=== PATIENT | male | born 1950 | race Caucasian/White ===

== ENCOUNTER 2018-06-26 16:12 | Inpatient (IN) | payer MEDICARE, MEDICAID ==
[~2018-06-26] VITALS: Ht 167.6 cm; Wt 52.8 kg
[2018-06-26 16:39] VITALS: BP 152/94
[2018-06-26] MEDS ORDERED: METHYL SALICYLATE/MENTHOL TOPICAL OINTMENT 29GM TUBE. TP PRN (16:45)
[2018-06-26] MEDS ORDERED: MAGNESIUM HYDROXIDE 2,400 MG/30 ML ORAL.SUSP. PO PRN (16:45)
[2018-06-26] MEDS ORDERED: ACETAMINOPHEN 325 MG TABLET PO PRN (16:45)
[2018-06-26] MEDS ORDERED: MAG HYDROX/AL HYDROX/SIMETH 30 ML ORAL.SUSP PO PRN (16:45)
[2018-06-26 17:20] LABS: BASO % 0 % (0-3); EOS # 0.1 x10^3/uL (0.0-0.7); EOS % 1 % (0-3); HEMATOCRIT 38.7 % (39.0-53.0); HEMOGLOBIN 13.1 g/dL (13.0-17.5); LYMPH # 0.4 x10^3/uL (1.0-4.8); LYMPH % 8 % (24-48); MEAN CORPUSCULAR HEMOGLOBIN 31 pg (25-35); MEAN CORPUSCULAR HGB CONC 34 g/dL (31-37); MEAN CORPUSCULAR VOLUME 93 fL (79-100); MONO # 0.5 x10^3/uL (0.0-1.1); MONO % 10 % (0-9); NEUT # 4.2 x10^3uL (1.8-7.7); NEUT % 81 % (31-73); PLATELET COUNT 170 x10^3/uL (140-400); RED BLOOD COUNT 4.18 x10^6/uL (4.30-5.70); RED CELL DISTRIBUTION WIDTH 15.6 % (11.5-14.5); WHITE BLOOD COUNT 5.2 x10^3/uL (4.0-11.0)
[2018-06-26 17:24] LABS: BILIRUBIN,URINE NEG (NEG); CLARITY,URINE CLEAR; COLOR,URINE YELLOW; GLUCOSE,URINE NEG (NEG)
[2018-06-26 17:25] LABS: BACTERIA,URINE FEW /HPF (0-FEW); NITRITE,URINE NEG (NEG); RBC,URINE OCC /HPF (0-2); SQUAMOUS EPITHELIAL CELL,UR FEW /LPF; UROBILINOGEN,URINE 0.2 mg/dL (0.2 mg/dL)
[2018-06-26 17:47] LABS: ALBUMIN 3.4 g/dL (3.4-5.0); ALBUMIN/GLOBULIN RATIO 0.9 (1.0-1.7); CALCIUM 8.8 mg/dL (8.5-10.1); CREATININE 0.8 mg/dL (0.7-1.3); GFR 95.6; MAGNESIUM 1.9 mg/dL (1.8-2.4); POTASSIUM 3.7 mmol/L (3.5-5.1); TOTAL BILIRUBIN 0.5 mg/dL (0.2-1.0); TOTAL PROTEIN 7.2 g/dL (6.4-8.2)
[2018-06-26] MEDS ORDERED: ONDA4VIA56 IVP (18:05)
[2018-06-26] MEDS ORDERED: PROC5TAB34 IVP (18:05)
[2018-06-26] MEDS ORDERED: PHEN-443 PO (18:05)
[2018-06-26] MEDS ORDERED: PHENAZOPYRIDINE 100 MG TABLET. PO PRN (18:15)
--- NOTE | 2018-06-26 22:44 | PDOC ---
Exam Note: Gadiel Note: Please also refer to the separate dictated note~for this date of service dictated separately. Discussed the patient with Nursing staff reviewed the chart.~Reviewed interim history and current functioning. Reviewed vital signs,~ Labs/ Radiology~and current medications noted below. Continue current treatment with the changes noted in the dictated addendum note Assessment: Vital Signs: Vital Signs Date Time Temp Pulse Resp B/P (MAP) Pulse Ox O2 Delivery O2 Flow Rate FiO2 06/26/18 16:39 97.3 91 18 152/94 (113) 95 Labs: Laboratory Tests Test 06/26/18 16:45 06/26/18 16:55 Urine Collection Type Void Urine Color Yellow Urine Clarity Clear Urine pH 7.5 Urine Specific [place] 1.015 Urine Protein Neg (NEG-TRACE) Urine Glucose (UA) Neg mg/dL (NEG) Urine Ketones (Stick) Neg mg/dL (NEG) Urine Blood Neg (NEG) Urine Nitrite Neg (NEG) Urine Bilirubin Neg (NEG) Urine Urobilinogen Dipstick 0.2 mg/dL (0.2 mg/dL) Urine Leukocyte Esterase Trace (NEG) Urine RBC Occ /HPF (0-2) Urine WBC 1-4 /HPF (0-4) Urine Squamous Epithelial Cells Few /LPF Urine Bacteria Few /HPF (0-FEW) White Blood Count 5.2 x10^3/uL (4.0-11.0) Red Blood Count 4.18 x10^6/uL (4.30-5.70) L Hemoglobin 13.1 g/dL (13.0-17.5) Hematocrit 38.7 % (39.0-53.0) L Mean Corpuscular Volume 93 fL (79-100) Mean Corpuscular Hemoglobin 31 pg (25-35) Mean Corpuscular Hemoglobin Concent 34 g/dL (31-37) Red Cell Distribution Width 15.6 % (11.5-14.5) H Platelet Count 170 x10^3/uL (140-400) Neutrophils (%) (Auto) 81 % (31-73) H Lymphocytes (%) (Auto) 8 % (24-48) L Monocytes (%) (Auto) 10 % (0-9) H Eosinophils (%) (Auto) 1 % (0-3) Basophils (%) (Auto) 0 % (0-3) Neutrophils # (Auto) 4.2 x10^3uL (1.8-7.7) Lymphocytes # (Auto) 0.4 x10^3/uL (1.0-4.8) L Monocytes # (Auto) 0.5 x10^3/uL (0.0-1.1) Eosinophils # (Auto) 0.1 x10^3/uL (0.0-0.7) Basophils # (Auto) 0.0 x10^3/uL (0.0-0.2) Sodium Level 138 mmol/L (136-145) Potassium Level 3.7 mmol/L (3.5-5.1) Chloride Level 101 mmol/L (98-107) Carbon Dioxide Level 32 mmol/L (21-32) Anion Gap 5 (6-14) L Blood Urea Nitrogen 17 mg/dL (8-26) Creatinine 0.8 mg/dL (0.7-1.3) Estimated GFR (Cockcroft-Gault) 95.6 BUN/Creatinine Ratio 21 (6-20) H Glucose Level 98 mg/dL (70-99) Calcium Level 8.8 mg/dL (8.5-10.1) Magnesium Level 1.9 mg/dL (1.8-2.4) Total Bilirubin 0.5 mg/dL (0.2-1.0) Aspartate Amino Transferase (AST) 25 U/L (15-37) Alanine Aminotransferase (ALT) 18 U/L (16-63) Alkaline Phosphatase 88 U/L (46-116) Total Protein 7.2 g/dL (6.4-8.2) Albumin 3.4 g/dL (3.4-5.0) Albumin/Globulin Ratio 0.9 (1.0-1.7) L Current Medications: Meds: Current Medications Acetaminophen (Tylenol) 650 mg PRN Q6HRS PRN PO PAIN / TEMP; Start 06/26/18 at 16:45 Multi-Ingredient Ointment (Analgesic [place]) 1 tarik PRN QID PRN TP MUSCLE PAIN; Start 06/26/18 at 16:45 Al Hydroxide/Mg Hydroxide (Mylanta Plus Xs) 15 ml PRN AFTMEALHC PRN PO DYSPEPSIA; Start 06/26/18 at 16:45 Magnesium Hydroxide (Milk Of Magnesia) 2,400 mg PRN QHS PRN PO CONSTIPATION; Start 06/26/18 at 16:45 Phenazopyridine HCl (Pyridium) 100 mg PRN Q8HRS PRN PO URINARY DISCOMFORT; Start 06/26/18 at 18:15 Olanzapine (ZyPREXA ZYDIS) 2.5 mg PRN Q2HR PRN PO psychosis/agitation ; Start 06/26/18 at 18:30 Active Scripts Active Reported Compazine (Prochlorperazine Maleate) 5 Mg Tablet 5 Mg IVP PRN Q4HRS PRN Phenazopyridine Hcl 100 Mg Tablet 100 Mg PO PRN Q8HRS PRN Ondansetron Hcl 4 Mg/2 Ml Vial (Ondansetron Hcl/Pf) 4 Mg/2 Ml Vial 4 Mg IVP PRN Q6HRS PRN I have reviewed the current psychotropics carefully including drug interactions. Risk benefit ratio favors no change other than as noted in my dictated progress note. Diagnosis: Problems: (1) Unspecified psychosis (2) Anxiety disorder (3) Dementia, vascular, with delusions (4) Dementia, vascular, with depression (5) Dementia in Alzheimer's disease with delusions (6) Dementia in Alzheimer's disease with depression (7) Impulse control disorder (8) Psychosis, atypical CORA PRADHAN MD Jun 26, 2018 22:44
[2018-06-27 01:12] LABS: THYROXINE 6.5 ug/dL (4.5-12.0)
[2018-06-27 05:16] VITALS: BP 136/80
[2018-06-27 13:24] LABS: THYROID STIM HORMONE (TSH) 7.473 uIU/mL (0.358-3.740)
--- NOTE | 2018-06-27 13:30 | EKG ---
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
--- NOTE | 2018-06-27 14:01 | HP ---
ADMIT DATE: 06/26/2018 PSYCHIATRIC ADMISSION HISTORY AND EVALUATION This late entry 06/26/2018 covers elements not covered in my initial note of 06/26/2018. I have discussed the patient with the nursing staff, reviewed the chart, and discussed the patient with Lili Davies several times over the last couple of days after the patient was referred to us by his primary care physician at [facility] in [place] on account of worsening confusion and agitation. I had also talked to the nurse practitioner taking care of the patient at [facility] earlier in the day prior to the patient's admission on 06/26/2018. Reviewed his entire history. IDENTIFYING DATA: The patient is a 68-year-old male referred to us from [facility] where he was hospitalized from home since he was walking out of the home, difficult to redirect him and bring him back into the home by his . Behaviors were deemed dangerous. He was noted to have auditory and visual hallucinations about demons at bad spirits. He had gone outside in the snow and had to get him back in. He was resistive to this. This concerns about safety. The entire medical workup at [facility] was negative including for any drug or substance use. There is no recent alcohol usage though he has a past history of alcohol abuse. CT head and MRI head showed no acute changes. He is referred for inpatient psychiatric stabilization. CHIEF COMPLAINT: "I came here today. I am okay." HISTORY OF PRESENT ILLNESS: The patient has a history of dementia, Alzheimer's vascular type. He has been residing at home with his . He has not been driving for some time, but getting increasingly confused, anxious, restless, paranoid, suspicious. He has been getting more confused in the evening, wandering out of the home into the snow, difficult to redirect back by his . Behaviors deemed dangerous, unmanageable resulting in this referral for inpatient psychiatric stabilization. No clear symptoms of bipolar disorder. PAST PSYCHIATRIC HISTORY: Positive for alcohol abuse, but no usage for about 9 months. History of progressive short-term memory deficits. PAST MEDICAL HISTORY: Positive for history of rectal cancer, anemia, chronic diarrhea, past history of alcohol abuse, sober for 9 months. Chinese is a second language Wolof being the first, but he does communicate in Chinese as he did with me on 06/26/2018. DRUG ALLERGIES: Negative. ACCU-CHEKS: None. DIET: [place] diet. Take medications whole. Ambulates up ad remi. UA 06/26/2018, sample was obtained. CODE STATUS: Full code. CURRENT PSYCHOTROPICS: Zyprexa was initiated 2.5 mg q.2 hours p.r.n. psychosis, agitation; 7.5 mg every 24 hours. This was started by me following the patient's admission. FAMILY HISTORY: Noncontributory. SOCIAL HISTORY: The patient states he used to work at the [employer] in [place]. Alcohol use history as noted above, none for 9 months. No drug abuse history. No physical, sexual or elder abuse history is noted. He is not known to be a perpetrator. REACTION TO HOSPITALIZATION: The patient is accepting of this and he has been admitted with the following apparently both by his own signature and his as a co-signatory. ASSETS: Supporting . MENTAL STATUS EXAM: The patient was seen individually evening in his room on 06/26/2018. He knew he arrived earlier in the day on 06/26/2018, was oriented to place, situation, knew the year was 2018. He is only able to do one step on serial sevens, able to spell world forward. No error, backward, 4 errors. Attention span is short. Language function intact. He remains somewhat paranoid, but otherwise quite verbal forthcoming. Insight is reasonable. Language function intact. Mood is somewhat dysphoric, anxious. No active suicidal or homicidal ideation. LABORATORY DATA: Reviewed. IMPRESSION: Psychotic disorder, unspecified; major neurocognitive disorder, Alzheimer, vascular with delusion, depression; anxiety disorder, unspecified; impulse control disorder, unspecified. B12 deficiency. Rest as above. PLAN: Admit to geropsychiatry unit at [facility]. I will see the patient daily individually from a psychiatric standpoint, medical followup with Dr. Ewing. We will start Zyprexa p.r.n., consider starting Exelon patch and an SSRI agent, but we will observe him baseline and that the side effect. Estimated length of stay 10-12 days. DISPOSITION: Plans possibly back home with outpatient treatment locally in [place], [place]. CORA PRADHAN MD DR: SINDI/kaden JOB#: [id number] / [id number]
[2018-06-27 15:54] VITALS: BP 108/63
--- NOTE | 2018-06-27 21:54 | CONS ---
DATE OF CONSULTATION: 06/27/2018 REASON FOR CONSULTATION: Medical management. HISTORY OF PRESENT ILLNESS: The patient is a 68-year-old male patient who was referred from [facility] where he was hospitalized from home since he was walking out of the home and it was difficult to redirect and bring him back into the house from the snow. His behavior was deemed dangerous. He was noted auditory and visual hallucinations about demons and bad spirits. He had run outside in the snow and the had to get him back in. He was resistive to her care. He was felt to be medically stable and his CT scan and MRI of the head showed no acute changes and therefore, he was referred to this unit for inpatient psychiatric stabilization. PAST MEDICAL HISTORY: Medically, the patient has a known history of rectal cancer, status post surgery. He has anemia, chronic diarrhea, past history of alcohol abuse, has not drunk any for the last 9 months. PAST SURGICAL HISTORY: Significant for Port-A-Cath placement. ALLERGIES: He has no known drug allergies. MEDICATIONS: He is currently on the following medications: He is on Compazine 5 mg every 4 hours, ondansetron 4 mg every 6 hours, and phenazopyridine 100 mg every 8 hours as needed. REVIEW OF SYSTEMS: As per history of present illness. PHYSICAL EXAMINATION GENERAL: When I examined him, he was pale, cachectic, but no jaundice, cyanosis, lymphadenopathy, or thyromegaly. No jugular venous distension. No lower limb edema. VITAL SIGNS: His heart rate was 91, blood pressure 152/94, temperature was 97.3, respiratory rate was 18, and oxygen saturation was 95%. HEENT: Showed normocephalic, atraumatic. NECK: Supple. HEART: Showed normal first and second heart sounds. No gallop, rub, or murmur. CHEST: Shows central trachea, equal bilateral good chest expansion and air entry, vesicular breath sounds, no crepitation or rhonchi. ABDOMEN: Scaphoid, soft, nontender. NEUROLOGIC: He is awake, alert, and responding appropriately. All cranial nerves were intact. EXTREMITIES: Moves extremities without difficulty. He has marked muscle wasting and weakness. LABORATORY DATA: Showed a serum sodium of 138, potassium 3.7, chloride 101, bicarbonate 32, anion gap of 5, BUN 17, creatinine 0.8, estimated GFR was 96 mL per minute. His glucose was 98, calcium was 8.8, magnesium was 1.8. Serum iron was 50, TIBC was 255, and saturation was 20. His serum total iron, total bilirubin, AST, ALT, alkaline phosphatase were normal. Total protein was 7.2, albumin 3.7, triglycerides were 61, total cholesterol 148, LDL was 79, VLDL was 12, HDL was 57, and total cholesterol to HDL cholesterol ratio was 2. 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 His white cell count was 5200, hemoglobin 13, hematocrit 39, MCV 93, and platelet count 270,000. His urinalysis was essentially unremarkable. The urine was yellow and clear with a pH of 7.5, specific gravity of 1.015. The urine was negative for protein, glucose, ketones, blood, nitrite, and leukocyte esterase. There were occasional rbc's, 1-4 wbc's, and very few bacteria. IMPRESSION: So, in summary, this is a 68-year-old male patient who was admitted to [facility] in [place] where he apparently was walking out of the home, going outside in the snow, and the to get had to get him back multiple times. It was difficult to redirect him and bring him back in to the house. He was also noted to have auditory and visual hallucinations that were about demons and bad spirits. He is here for inpatient psychiatric stabilization. Medically, he seems to be stable. All his vital signs and his lab works are all within the acceptable range. He definitely has no evidence of urinary tract infection. He is on minimal medication. I will definitely follow all his labs that are still pending sat the time of this dictation and make any necessary recommendations. Thank you, Dr. Ng, for allowing me to participate in the care of this patient. ODALYS RENEE MD DR: ALBARO/kaden JOB#: [id number] / [id number]
--- NOTE | 2018-06-27 23:14 | PDOC ---
Exam Note: Gadiel Note: Please also refer to the separate dictated note~for this date of service dictated separately.~Patient seen individually. Discussed the patient with Nursing staff reviewed the chart.~Reviewed interim history and current functioning. Reviewed vital signs,~Labs/ Radiology~and current medications noted below. Continue current treatment with the changes noted in the dictated addendum note Assessment: Vital Signs: Vital Signs Date Time Temp Pulse Resp B/P (MAP) Pulse Ox O2 Delivery O2 Flow Rate FiO2 06/27/18 15:54 97.9 96 18 108/63 (78) 97 Room Air I&O Intake and Output 06/27/18 07:01 Intake Total 240 ml Balance 240 ml Intake Oral 240 ml # Bowel Movements 1 Current Medications: Meds: Current Medications Acetaminophen (Tylenol) 650 mg PRN Q6HRS PRN PO PAIN / TEMP; Start 06/26/18 at 16:45 Multi-Ingredient Ointment (Analgesic [place]) 1 tarik PRN QID PRN TP MUSCLE PAIN; Start 06/26/18 at 16:45 Al Hydroxide/Mg Hydroxide (Mylanta Plus Xs) 15 ml PRN AFTMEALHC PRN PO DYSPEPSIA; Start 06/26/18 at 16:45 Magnesium Hydroxide (Milk Of Magnesia) 2,400 mg PRN QHS PRN PO CONSTIPATION; Start 06/26/18 at 16:45 Phenazopyridine HCl (Pyridium) 100 mg PRN Q8HRS PRN PO URINARY DISCOMFORT; Start 06/26/18 at 18:15 Olanzapine (ZyPREXA ZYDIS) 2.5 mg PRN Q2HR PRN PO psychosis/agitation ; Start 06/26/18 at 18:30 Rivastigmine (Exelon) 1 patch DAILY TD ; Start 06/28/18 at 09:00; Stop 07/05/18 at 11:00 Rivastigmine (Exelon) 1 patch DAILY TD ; Start 07/06/18 at 09:00 Sertraline HCl (Zoloft) 25 mg DAILY PO ; Start 06/28/18 at 09:00 Active Scripts Active Reported Compazine (Prochlorperazine Maleate) 5 Mg Tablet 5 Mg IVP PRN Q4HRS PRN Phenazopyridine Hcl 100 Mg Tablet 100 Mg PO PRN Q8HRS PRN Ondansetron Hcl 4 Mg/2 Ml Vial (Ondansetron Hcl/Pf) 4 Mg/2 Ml Vial 4 Mg IVP PRN Q6HRS PRN I have reviewed the current psychotropics carefully including drug interactions. Risk benefit ratio favors no change other than as noted in my dictated progress note. Diagnosis: Problems: (1) Unspecified psychosis (2) Anxiety disorder (3) Dementia, vascular, with delusions (4) Dementia, vascular, with depression (5) Dementia in Alzheimer's disease with delusions (6) Dementia in Alzheimer's disease with depression (7) Impulse control disorder (8) Psychosis, atypical CORA PRADHAN MD Jun 27, 2018 23:14
[2018-06-28] MEDS ORDERED: traZODone 50 MG TABLET. PO PRN (04:30)
[2018-06-28 05:49] VITALS: BP 143/85
[2018-06-28] MEDS: SERTRALINE 25 MG TABLET. PO SCH (09:37)
[2018-06-28] MEDS: RIVASTIGMINE 4.6MG PATCH. TD SCH (09:37)
[2018-06-28 16:17] VITALS: BP 114/72
[2018-06-28] MEDS: traZODone 50 MG TABLET. PO SCH (19:48)
--- NOTE | 2018-06-28 20:23 | PN ---
DATE: 06/27/2018 PSYCHIATRIC PROGRESS NOTE This late entry 06/27/2018 covers elements not covered in my initial note. SUBJECTIVE: I met with the patient in the evening and staffed at a treatment team meeting with the entire team in the morning. Reviewed history at length of progressive memory deficits. Past history of heavy alcohol abuse, none for 9 months. The patient slept 5-1/2 hours previous evening, calm, cooperative, used to work at [employer]. Reviewed his past alcohol abuse. He admits to having DUIs and alcohol withdrawal symptoms and involvement with the authorities. Staff had tried to call me around 10:30 p.m. and then early the morning of 06/28/2018. I spoke to them at 4:00 a.m. The patient is having difficulty sleeping and we will add trazodone p.r.n. REVIEW OF SYSTEMS: No CV, , pulmonary, eye, ENT system symptoms on review. MENTAL STATUS: Oriented to himself and situation. Speech has some latency, coherent, has some abstraction fair, computation impaired, language function intact. Short term memory is impaired. Mood and affect showing some improvement. LABORATORY DATA: Reviewed. IMPRESSION: Major neurocognitive disorder, Alzheimer, vascular with delusion, depression. Rest unchanged. Past history of alcohol abuse. PLAN: Start Exelon patch 4.6 mg a day, increasing to 9.5 mg a day and 7 days and Zoloft 25 mg a day. Continue rest unchanged for now. MAN Delilah PRADHAN MD DR: SINDI/kaden JOB#: [id number] / [id number]
--- NOTE | 2018-06-28 23:57 | PDOC ---
Exam Note: Gadiel Note: Please also refer to the separate dictated note~for this date of service dictated separately.~Patient seen individually. Discussed the patient with Nursing staff reviewed the chart.~Reviewed interim history and current functioning. Reviewed vital signs,~Labs/ Radiology~and current medications noted below. Continue current treatment with the changes noted in the dictated addendum note Assessment: Vital Signs: Vital Signs Date Time Temp Pulse Resp B/P (MAP) Pulse Ox O2 Delivery O2 Flow Rate FiO2 06/28/18 16:17 97.7 74 20 114/72 (86) 96 Room Air I&O Intake and Output 06/28/18 07:01 Intake Total 1320 ml Balance 1320 ml Intake Oral 1320 ml # Bowel Movements 1 Current Medications: Meds: Current Medications Acetaminophen (Tylenol) 650 mg PRN Q6HRS PRN PO PAIN / TEMP; Start 06/26/18 at 16:45 Multi-Ingredient Ointment (Analgesic [place]) 1 tarik PRN QID PRN TP MUSCLE PAIN; Start 06/26/18 at 16:45 Al Hydroxide/Mg Hydroxide (Mylanta Plus Xs) 15 ml PRN AFTMEALHC PRN PO DYSPEPSIA; Start 06/26/18 at 16:45 Magnesium Hydroxide (Milk Of Magnesia) 2,400 mg PRN QHS PRN PO CONSTIPATION; Start 06/26/18 at 16:45 Phenazopyridine HCl (Pyridium) 100 mg PRN Q8HRS PRN PO URINARY DISCOMFORT; Start 06/26/18 at 18:15 Olanzapine (ZyPREXA ZYDIS) 2.5 mg PRN Q2HR PRN PO psychosis/agitation Last administered on 06/27/18at 23:36; Start 06/26/18 at 18:30 Rivastigmine (Exelon) 1 patch DAILY TD Last administered on 06/28/18at 09:37; Start 06/28/18 at 09:00; Stop 07/05/18 at 11:00 Rivastigmine (Exelon) 1 patch DAILY TD ; Start 07/06/18 at 09:00 Sertraline HCl (Zoloft) 25 mg DAILY PO Last administered on 06/28/18at 09:37; Start 06/28/18 at 09:00 Trazodone HCl (Desyrel) 50 mg QHS PO Last administered on 06/28/18at 19:48; Start 06/28/18 at 21:00 Trazodone HCl (Desyrel) 50 mg PRN QHS PRN PO INSOMNIA; Start 06/28/18 at 04:30 Active Scripts Active Reported Compazine (Prochlorperazine Maleate) 5 Mg Tablet 5 Mg IVP PRN Q4HRS PRN Phenazopyridine Hcl 100 Mg Tablet 100 Mg PO PRN Q8HRS PRN Ondansetron Hcl 4 Mg/2 Ml Vial (Ondansetron Hcl/Pf) 4 Mg/2 Ml Vial 4 Mg IVP PRN Q6HRS PRN I have reviewed the current psychotropics carefully including drug interactions. Risk benefit ratio favors no change other than as noted in my dictated progress note. Diagnosis: Problems: (1) Unspecified psychosis (2) Anxiety disorder (3) Dementia, vascular, with delusions (4) Dementia, vascular, with depression (5) Dementia in Alzheimer's disease with delusions (6) Dementia in Alzheimer's disease with depression (7) Impulse control disorder (8) Psychosis, atypical CORA PRADHAN MD Jun 28, 2018 23:57
[2018-06-29 05:29] VITALS: BP 124/73
[2018-06-29] MEDS: RIVASTIGMINE 4.6MG PATCH. TD SCH (08:28)
[2018-06-29] MEDS: SERTRALINE 25 MG TABLET. PO SCH (08:28)
[2018-06-29 15:34] VITALS: BP 108/64
[2018-06-29] MEDS: CHOLECALCIFEROL (VITAMIN D3) 50,000 UNIT CAPSULE PO SCH (16:33)
[2018-06-29] MEDS: traZODone 50 MG TABLET. PO SCH (19:56)
[2018-06-29] MEDS: MIRTAZAPINE 7.5 MG TABLET. PO SCH (19:57)
--- NOTE | 2018-06-30 00:01 | PDOC ---
Exam Note: Gadiel Note: Please also refer to the separate dictated note~for this date of service dictated separately.~Patient seen individually. Discussed the patient with Nursing staff reviewed the chart.~Reviewed interim history and current functioning. Reviewed vital signs,~Labs/ Radiology~and current medications noted below. Continue current treatment with the changes noted in the dictated addendum note Assessment: Vital Signs: Vital Signs Date Time Temp Pulse Resp B/P (MAP) Pulse Ox O2 Delivery O2 Flow Rate FiO2 06/29/18 15:34 98.2 74 20 108/64 (79) 98 06/28/18 16:17 Room Air I&O Intake and Output 06/29/18 07:01 Intake Total 1060 ml Balance 1060 ml Intake Oral 1060 ml Current Medications: Meds: Current Medications Acetaminophen (Tylenol) 650 mg PRN Q6HRS PRN PO PAIN / TEMP; Start 06/26/18 at 16:45 Multi-Ingredient Ointment (Analgesic [place]) 1 tarik PRN QID PRN TP MUSCLE PAIN; Start 06/26/18 at 16:45 Al Hydroxide/Mg Hydroxide (Mylanta Plus Xs) 15 ml PRN AFTMEALHC PRN PO DYSPEPSIA; Start 06/26/18 at 16:45 Magnesium Hydroxide (Milk Of Magnesia) 2,400 mg PRN QHS PRN PO CONSTIPATION; Start 06/26/18 at 16:45 Phenazopyridine HCl (Pyridium) 100 mg PRN Q8HRS PRN PO URINARY DISCOMFORT; Start 06/26/18 at 18:15 Olanzapine (ZyPREXA ZYDIS) 2.5 mg PRN Q2HR PRN PO psychosis/agitation Last administered on 06/27/18at 23:36; Start 06/26/18 at 18:30 Rivastigmine (Exelon) 1 patch DAILY TD Last administered on 06/29/18at 08:28; Start 06/28/18 at 09:00; Stop 07/05/18 at 11:00 Rivastigmine (Exelon) 1 patch DAILY TD ; Start 07/06/18 at 09:00 Sertraline HCl (Zoloft) 25 mg DAILY PO Last administered on 06/29/18at 08:28; Start 06/28/18 at 09:00 Trazodone HCl (Desyrel) 50 mg QHS PO Last administered on 06/29/18at 19:56; Start 06/28/18 at 21:00 Trazodone HCl (Desyrel) 50 mg PRN QHS PRN PO INSOMNIA; Start 06/28/18 at 04:30 Vitamin D (Vitamin D3) 50,000 unit WEEKLY PO Last administered on 06/29/18at 16: 33; Start 06/29/18 at 16:15 Cyanocobalamin (Vitamin B-12) 1,000 mcg DAILY IM ; Start 06/30/18 at 09:00 Mirtazapine (Remeron) 7.5 mg QHS PO Last administered on 06/29/18at 19:57; Start 06/29/18 at 21:00 Active Scripts Active Reported Compazine (Prochlorperazine Maleate) 5 Mg Tablet 5 Mg IVP PRN Q4HRS PRN Phenazopyridine Hcl 100 Mg Tablet 100 Mg PO PRN Q8HRS PRN Ondansetron Hcl 4 Mg/2 Ml Vial (Ondansetron Hcl/Pf) 4 Mg/2 Ml Vial 4 Mg IVP PRN Q6HRS PRN I have reviewed the current psychotropics carefully including drug interactions. Risk benefit ratio favors no change other than as noted in my dictated progress note. Diagnosis: Problems: (1) Unspecified psychosis (2) Anxiety disorder (3) Dementia, vascular, with delusions (4) Dementia, vascular, with depression (5) Dementia in Alzheimer's disease with delusions (6) Dementia in Alzheimer's disease with depression (7) Impulse control disorder (8) Psychosis, atypical CORA PRADHAN MD Jun 30, 2018 00:01
[2018-06-30 05:53] VITALS: BP 144/84
[2018-06-30] MEDS: SERTRALINE 25 MG TABLET. PO SCH (07:31)
[2018-06-30] MEDS: RIVASTIGMINE 4.6MG PATCH. TD SCH (07:31)
[2018-06-30] MEDS: CYANOCOBALAMIN (VITAMIN B-12) 1,000 MCG/ML VIAL IM SCH (07:37)
[2018-06-30 15:15] LABS: HEMOGLOBIN 12.9 g/dL (13.0-17.5); RED CELL DISTRIBUTION WIDTH 15.5 % (11.5-14.5)
[2018-06-30 15:31] LABS: ALBUMIN 3.1 g/dL (3.4-5.0); ALBUMIN/GLOBULIN RATIO 0.8 (1.0-1.7); C REACTIVE PROTEIN 3.3 mg/L (0-3.3); CALCIUM 8.6 mg/dL (8.5-10.1); CREATININE 0.7 mg/dL (0.7-1.3); GFR 111.5; POTASSIUM 4.2 mmol/L (3.5-5.1); TOTAL BILIRUBIN 0.3 mg/dL (0.2-1.0); URIC ACID 3.1 mg/dL (3.5-7.2)
[2018-06-30 15:41] VITALS: BP 126/75
[2018-06-30] MEDS: MIRTAZAPINE 7.5 MG TABLET. PO SCH (20:19)
[2018-06-30] MEDS: traZODone 50 MG TABLET. PO SCH (20:20)
--- NOTE | 2018-06-30 22:34 | PDOC ---
Exam Note: Gadiel Note: Please also refer to the separate dictated note~for this date of service dictated separately. Discussed the patient with Nursing staff reviewed the chart.~Reviewed interim history and current functioning. Reviewed vital signs,~ Labs/ Radiology~and current medications noted below. Continue current treatment with the changes noted in the dictated addendum note Assessment: Vital Signs: Vital Signs Date Time Temp Pulse Resp B/P (MAP) Pulse Ox O2 Delivery O2 Flow Rate FiO2 06/30/18 15:41 97.8 76 18 126/75 (92) 96 06/28/18 16:17 Room Air I&O Intake and Output 06/30/18 07:01 Intake Total 1200 ml Balance 1200 ml Intake Oral 1200 ml # Voids 1 Labs: Laboratory Tests Test 06/30/18 14:50 White Blood Count 6.0 x10^3/uL (4.0-11.0) Red Blood Count 4.00 x10^6/uL (4.30-5.70) L Hemoglobin 12.9 g/dL (13.0-17.5) L Hematocrit 38.0 % (39.0-53.0) L Mean Corpuscular Volume 95 fL (79-100) Mean Corpuscular Hemoglobin 32 pg (25-35) Mean Corpuscular Hemoglobin Concent 34 g/dL (31-37) Red Cell Distribution Width 15.5 % (11.5-14.5) H Platelet Count 211 x10^3/uL (140-400) Erythrocyte Sedimentation Rate 21 (0-15) H Sodium Level 142 mmol/L (136-145) Potassium Level 4.2 mmol/L (3.5-5.1) Chloride Level 105 mmol/L (98-107) Carbon Dioxide Level 30 mmol/L (21-32) Anion Gap 7 (6-14) Blood Urea Nitrogen 20 mg/dL (8-26) Creatinine 0.7 mg/dL (0.7-1.3) Estimated GFR (Cockcroft-Gault) 111.5 BUN/Creatinine Ratio 29 (6-20) H Glucose Level 117 mg/dL (70-99) H Uric Acid 3.1 mg/dL (3.5-7.2) L Calcium Level 8.6 mg/dL (8.5-10.1) Total Bilirubin 0.3 mg/dL (0.2-1.0) Aspartate Amino Transferase (AST) 17 U/L (15-37) Alanine Aminotransferase (ALT) 17 U/L (16-63) Alkaline Phosphatase 100 U/L (46-116) C-Reactive Protein 3.3 mg/L (0-3.3) Total Protein 7.0 g/dL (6.4-8.2) Albumin 3.1 g/dL (3.4-5.0) L Albumin/Globulin Ratio 0.8 (1.0-1.7) L Current Medications: Meds: Current Medications Acetaminophen (Tylenol) 650 mg PRN Q6HRS PRN PO PAIN / TEMP Last administered on 06/30/18at 05:35; Start 06/26/18 at 16:45 Multi-Ingredient Ointment (Analgesic [place]) 1 tarik PRN QID PRN TP MUSCLE PAIN; Start 06/26/18 at 16:45 Al Hydroxide/Mg Hydroxide (Mylanta Plus Xs) 15 ml PRN AFTMEALHC PRN PO DYSPEPSIA; Start 06/26/18 at 16:45 Magnesium Hydroxide (Milk Of Magnesia) 2,400 mg PRN QHS PRN PO CONSTIPATION; Start 06/26/18 at 16:45 Phenazopyridine HCl (Pyridium) 100 mg PRN Q8HRS PRN PO URINARY DISCOMFORT; Start 06/26/18 at 18:15 Olanzapine (ZyPREXA ZYDIS) 2.5 mg PRN Q2HR PRN PO psychosis/agitation Last administered on 06/27/18at 23:36; Start 06/26/18 at 18:30 Rivastigmine (Exelon) 1 patch DAILY TD Last administered on 06/30/18at 07:31; Start 06/28/18 at 09:00; Stop 07/05/18 at 11:00 Rivastigmine (Exelon) 1 patch DAILY TD ; Start 07/06/18 at 09:00 Sertraline HCl (Zoloft) 25 mg DAILY PO Last administered on 06/30/18at 07:31; Start 06/28/18 at 09:00 Trazodone HCl (Desyrel) 50 mg QHS PO Last administered on 06/30/18at 20:20; Start 06/28/18 at 21:00 Trazodone HCl (Desyrel) 50 mg PRN QHS PRN PO INSOMNIA; Start 06/28/18 at 04:30 Vitamin D (Vitamin D3) 50,000 unit WEEKLY PO Last administered on 06/29/18at 16: 33; Start 06/29/18 at 16:15 Cyanocobalamin (Vitamin B-12) 1,000 mcg DAILY IM Last administered on at 07:37; Start 06/30/18 at 09:00 Mirtazapine (Remeron) 7.5 mg QHS PO Last administered on 06/30/18at 20:19; Start 06/29/18 at 21:00 Active Scripts Active Reported Compazine (Prochlorperazine Maleate) 5 Mg Tablet 5 Mg IVP PRN Q4HRS PRN Phenazopyridine Hcl 100 Mg Tablet 100 Mg PO PRN Q8HRS PRN Ondansetron Hcl 4 Mg/2 Ml Vial (Ondansetron Hcl/Pf) 4 Mg/2 Ml Vial 4 Mg IVP PRN Q6HRS PRN I have reviewed the current psychotropics carefully including drug interactions. Risk benefit ratio favors no change other than as noted in my dictated progress note. Diagnosis: Problems: (1) Unspecified psychosis (2) Anxiety disorder (3) Dementia, vascular, with delusions (4) Dementia, vascular, with depression (5) Dementia in Alzheimer's disease with delusions (6) Dementia in Alzheimer's disease with depression (7) Impulse control disorder (8) Psychosis, atypical CORA PRADHAN MD Jun 30, 2018 22:34
[2018-07-01 05:58] VITALS: BP 133/83
--- NOTE | 2018-07-01 06:58 | PDOC ---
Exam Note: Gadiel Note: PSYCHIATRIC PROGRESS NOTE This late entry 06/28/2018 covers elements, not covered in my initial note. SUBJECTIVE: I met with the patient individually in the evening of 06/28/2018. Nursing staff had called me at 10.30 p.m. previous night, then at 4 a.m. morning of the 06/28/2018. He has not been able to sleep and we have added trazodone to help with this. Reviewed information from nursing staff. Reviewed the chart. He has been withdrawn, spends much time in his room, confused, quite anxious, paranoid previous night. No suicidal or homicidal ideation. REVIEW OF SYSTEMS: No CV, , Eye, ENT, pulmonary system symptoms on review. MENTAL STATUS EXAMINATION: Oriented to herself and situation. Speech has some latency, coherent. Abstraction is fair. Computation impaired. Language function is intact. Short-term memory is impaired. Mood and affect is improved. LABORATORY DATA: Reviewed. IMPRESSION: Major neurocognitive disorder, vascular with delusion, depression. Past history of alcohol abuse. Rest unchanged. PLAN: I have carefully reviewed current psychotropics. There is no change from my initial note. Assessment: Vital Signs: VS - Last 72 Hours, by Label Date Time Temp Pulse Resp B/P (MAP) Pulse Ox O2 Delivery O2 Flow Rate FiO2 07/01/18 05:58 97.6 72 16 133/83 (100) 100 06/30/18 15:41 97.8 76 18 126/75 (92) 96 06/30/18 05:53 97.3 74 20 144/84 (104) 97 06/29/18 15:34 98.2 74 20 108/64 (79) 98 06/29/18 05:29 96.9 80 22 124/73 (90) 96 06/28/18 16:17 97.7 74 20 114/72 (86) 96 Room Air Vital Signs Date Time Temp Pulse Resp B/P (MAP) Pulse Ox O2 Delivery O2 Flow Rate FiO2 07/01/18 05:58 97.6 72 16 133/83 (100) 100 06/28/18 16:17 Room Air I&O Intake and Output 07/01/18 07:01 Intake Total 840 ml Balance 840 ml Intake Oral 840 ml Labs: Laboratory Tests Test 06/30/18 14:50 White Blood Count 6.0 x10^3/uL (4.0-11.0) Red Blood Count 4.00 x10^6/uL (4.30-5.70) L Hemoglobin 12.9 g/dL (13.0-17.5) L Hematocrit 38.0 % (39.0-53.0) L Mean Corpuscular Volume 95 fL (79-100) Mean Corpuscular Hemoglobin 32 pg (25-35) Mean Corpuscular Hemoglobin Concent 34 g/dL (31-37) Red Cell Distribution Width 15.5 % (11.5-14.5) H Platelet Count 211 x10^3/uL (140-400) Erythrocyte Sedimentation Rate 21 (0-15) H Sodium Level 142 mmol/L (136-145) Potassium Level 4.2 mmol/L (3.5-5.1) Chloride Level 105 mmol/L (98-107) Carbon Dioxide Level 30 mmol/L (21-32) Anion Gap 7 (6-14) Blood Urea Nitrogen 20 mg/dL (8-26) Creatinine 0.7 mg/dL (0.7-1.3) Estimated GFR (Cockcroft-Gault) 111.5 BUN/Creatinine Ratio 29 (6-20) H Glucose Level 117 mg/dL (70-99) H Uric Acid 3.1 mg/dL (3.5-7.2) L Calcium Level 8.6 mg/dL (8.5-10.1) Total Bilirubin 0.3 mg/dL (0.2-1.0) Aspartate Amino Transferase (AST) 17 U/L (15-37) Alanine Aminotransferase (ALT) 17 U/L (16-63) Alkaline Phosphatase 100 U/L (46-116) C-Reactive Protein 3.3 mg/L (0-3.3) Total Protein 7.0 g/dL (6.4-8.2) Albumin 3.1 g/dL (3.4-5.0) L Albumin/Globulin Ratio 0.8 (1.0-1.7) L Current Medications: Meds: Current Medications Acetaminophen (Tylenol) 650 mg PRN Q6HRS PRN PO PAIN / TEMP Last administered on 06/30/18at 05:35; Start 06/26/18 at 16:45 Multi-Ingredient Ointment (Analgesic [place]) 1 tarik PRN QID PRN TP MUSCLE PAIN; Start 06/26/18 at 16:45 Al Hydroxide/Mg Hydroxide (Mylanta Plus Xs) 15 ml PRN AFTMEALHC PRN PO DYSPEPSIA; Start 06/26/18 at 16:45 Magnesium Hydroxide (Milk Of Magnesia) 2,400 mg PRN QHS PRN PO CONSTIPATION; Start 06/26/18 at 16:45 Phenazopyridine HCl (Pyridium) 100 mg PRN Q8HRS PRN PO URINARY DISCOMFORT; Start 06/26/18 at 18:15 Olanzapine (ZyPREXA ZYDIS) 2.5 mg PRN Q2HR PRN PO psychosis/agitation Last administered on 06/27/18at 23:36; Start 06/26/18 at 18:30 Rivastigmine (Exelon) 1 patch DAILY TD Last administered on 06/30/18at 07:31; Start 06/28/18 at 09:00; Stop 07/05/18 at 11:00 Rivastigmine (Exelon) 1 patch DAILY TD ; Start 07/06/18 at 09:00 Sertraline HCl (Zoloft) 25 mg DAILY PO Last administered on 06/30/18at 07:31; Start 06/28/18 at 09:00 Trazodone HCl (Desyrel) 50 mg QHS PO Last administered on 06/30/18at 20:20; Start 06/28/18 at 21:00 Trazodone HCl (Desyrel) 50 mg PRN QHS PRN PO INSOMNIA; Start 06/28/18 at 04:30 Vitamin D (Vitamin D3) 50,000 unit WEEKLY PO Last administered on 06/29/18at 16: 33; Start 06/29/18 at 16:15 Cyanocobalamin (Vitamin B-12) 1,000 mcg DAILY IM Last administered on at 07:37; Start 06/30/18 at 09:00 Mirtazapine (Remeron) 7.5 mg QHS PO Last administered on 06/30/18at 20:19; Start 06/29/18 at 21:00 Active Scripts Active Reported Compazine (Prochlorperazine Maleate) 5 Mg Tablet 5 Mg IVP PRN Q4HRS PRN Phenazopyridine Hcl 100 Mg Tablet 100 Mg PO PRN Q8HRS PRN Ondansetron Hcl 4 Mg/2 Ml Vial (Ondansetron Hcl/Pf) 4 Mg/2 Ml Vial 4 Mg IVP PRN Q6HRS PRN I have reviewed the current psychotropics carefully including drug interactions. Risk benefit ratio favors no change other than as noted in my dictated progress note. Diagnosis: Problems: (1) Unspecified psychosis (2) Anxiety disorder (3) Dementia, vascular, with delusions (4) Dementia, vascular, with depression (5) Dementia in Alzheimer's disease with delusions (6) Dementia in Alzheimer's disease with depression (7) Impulse control disorder (8) Psychosis, atypical CORA PRADHAN MD Jul 01, 2018 06:58
--- NOTE | 2018-07-01 07:15 | PDOC ---
Exam Note: Gadiel Note: PSYCHIATRIC PROGRESS NOTE This late entry 06/29/2018 covers elements, not covered in my initial note. SUBJECTIVE: I met with the patient individually in the evening of 06/29/2018. Reviewed information from nursing staff. Reviewed the chart. He slept just 3 hours previous night. He did well the previous night and during the day on . No suicidal or homicidal ideation. REVIEW OF SYSTEMS: No CV, , Eye, ENT, pulmonary system symptoms on review. MENTAL STATUS EXAMINATION: Oriented to herself and situation. Speech has some latency, low in rate and rhythm. Often response is monosyllabic. Abstraction is fair. Computation impaired. Language function is intact. Short-term memory is impaired. Mood and affect is improved. LABORATORY DATA: Reviewed. IMPRESSION: Major neurocognitive disorder, vascular with delusion, depression. Past history of alcohol abuse. Rest unchanged. PLAN: I have carefully reviewed current psychotropics. Start Remeron 7.5 mg p.o. h.s. Rest unchanged from my initial note. Assessment: Vital Signs: VS - Last 72 Hours, by Label Date Time Temp Pulse Resp B/P (MAP) Pulse Ox O2 Delivery O2 Flow Rate FiO2 07/01/18 05:58 97.6 72 16 133/83 (100) 100 06/30/18 15:41 97.8 76 18 126/75 (92) 96 06/30/18 05:53 97.3 74 20 144/84 (104) 97 06/29/18 15:34 98.2 74 20 108/64 (79) 98 06/29/18 05:29 96.9 80 22 124/73 (90) 96 06/28/18 16:17 97.7 74 20 114/72 (86) 96 Room Air Vital Signs Date Time Temp Pulse Resp B/P (MAP) Pulse Ox O2 Delivery O2 Flow Rate FiO2 07/01/18 05:58 97.6 72 16 133/83 (100) 100 06/28/18 16:17 Room Air I&O Intake and Output 07/01/18 07:01 Intake Total 840 ml Balance 840 ml Intake Oral 840 ml Labs: Laboratory Tests Test 06/30/18 14:50 White Blood Count 6.0 x10^3/uL (4.0-11.0) Red Blood Count 4.00 x10^6/uL (4.30-5.70) L Hemoglobin 12.9 g/dL (13.0-17.5) L Hematocrit 38.0 % (39.0-53.0) L Mean Corpuscular Volume 95 fL (79-100) Mean Corpuscular Hemoglobin 32 pg (25-35) Mean Corpuscular Hemoglobin Concent 34 g/dL (31-37) Red Cell Distribution Width 15.5 % (11.5-14.5) H Platelet Count 211 x10^3/uL (140-400) Erythrocyte Sedimentation Rate 21 (0-15) H Sodium Level 142 mmol/L (136-145) Potassium Level 4.2 mmol/L (3.5-5.1) Chloride Level 105 mmol/L (98-107) Carbon Dioxide Level 30 mmol/L (21-32) Anion Gap 7 (6-14) Blood Urea Nitrogen 20 mg/dL (8-26) Creatinine 0.7 mg/dL (0.7-1.3) Estimated GFR (Cockcroft-Gault) 111.5 BUN/Creatinine Ratio 29 (6-20) H Glucose Level 117 mg/dL (70-99) H Uric Acid 3.1 mg/dL (3.5-7.2) L Calcium Level 8.6 mg/dL (8.5-10.1) Total Bilirubin 0.3 mg/dL (0.2-1.0) Aspartate Amino Transferase (AST) 17 U/L (15-37) Alanine Aminotransferase (ALT) 17 U/L (16-63) Alkaline Phosphatase 100 U/L (46-116) C-Reactive Protein 3.3 mg/L (0-3.3) Total Protein 7.0 g/dL (6.4-8.2) Albumin 3.1 g/dL (3.4-5.0) L Albumin/Globulin Ratio 0.8 (1.0-1.7) L Current Medications: Meds: Current Medications Acetaminophen (Tylenol) 650 mg PRN Q6HRS PRN PO PAIN / TEMP Last administered on 06/30/18at 05:35; Start 06/26/18 at 16:45 Multi-Ingredient Ointment (Analgesic [place]) 1 tarik PRN QID PRN TP MUSCLE PAIN; Start 06/26/18 at 16:45 Al Hydroxide/Mg Hydroxide (Mylanta Plus Xs) 15 ml PRN AFTMEALHC PRN PO DYSPEPSIA; Start 06/26/18 at 16:45 Magnesium Hydroxide (Milk Of Magnesia) 2,400 mg PRN QHS PRN PO CONSTIPATION; Start 06/26/18 at 16:45 Phenazopyridine HCl (Pyridium) 100 mg PRN Q8HRS PRN PO URINARY DISCOMFORT; Start 06/26/18 at 18:15 Olanzapine (ZyPREXA ZYDIS) 2.5 mg PRN Q2HR PRN PO psychosis/agitation Last administered on 06/27/18at 23:36; Start 06/26/18 at 18:30 Rivastigmine (Exelon) 1 patch DAILY TD Last administered on 06/30/18at 07:31; Start 06/28/18 at 09:00; Stop 07/05/18 at 11:00 Rivastigmine (Exelon) 1 patch DAILY TD ; Start 07/06/18 at 09:00 Sertraline HCl (Zoloft) 25 mg DAILY PO Last administered on 06/30/18at 07:31; Start 06/28/18 at 09:00 Trazodone HCl (Desyrel) 50 mg QHS PO Last administered on 06/30/18at 20:20; Start 06/28/18 at 21:00 Trazodone HCl (Desyrel) 50 mg PRN QHS PRN PO INSOMNIA; Start 06/28/18 at 04:30 Vitamin D (Vitamin D3) 50,000 unit WEEKLY PO Last administered on 06/29/18at 16: 33; Start 06/29/18 at 16:15 Cyanocobalamin (Vitamin B-12) 1,000 mcg DAILY IM Last administered on at 07:37; Start 06/30/18 at 09:00 Mirtazapine (Remeron) 7.5 mg QHS PO Last administered on 06/30/18at 20:19; Start 06/29/18 at 21:00 Active Scripts Active Reported Compazine (Prochlorperazine Maleate) 5 Mg Tablet 5 Mg IVP PRN Q4HRS PRN Phenazopyridine Hcl 100 Mg Tablet 100 Mg PO PRN Q8HRS PRN Ondansetron Hcl 4 Mg/2 Ml Vial (Ondansetron Hcl/Pf) 4 Mg/2 Ml Vial 4 Mg IVP PRN Q6HRS PRN I have reviewed the current psychotropics carefully including drug interactions. Risk benefit ratio favors no change other than as noted in my dictated progress note. Diagnosis: Problems: (1) Unspecified psychosis (2) Anxiety disorder (3) Dementia, vascular, with delusions (4) Dementia, vascular, with depression (5) Dementia in Alzheimer's disease with delusions (6) Dementia in Alzheimer's disease with depression (7) Impulse control disorder (8) Psychosis, atypical CORA PRADHAN MD Jul 01, 2018 07:15
[2018-07-01] MEDS: CYANOCOBALAMIN (VITAMIN B-12) 1,000 MCG/ML VIAL IM SCH (07:38)
[2018-07-01] MEDS: RIVASTIGMINE 4.6MG PATCH. TD SCH (07:38)
[2018-07-01] MEDS: SERTRALINE 25 MG TABLET. PO SCH (07:38)
[2018-07-01 16:41] VITALS: BP 121/78
[2018-07-01] MEDS: traZODone 50 MG TABLET. PO SCH (19:29)
[2018-07-01] MEDS: MIRTAZAPINE 7.5 MG TABLET. PO SCH (19:29)
--- NOTE | 2018-07-01 22:33 | PDOC ---
Exam Note: Gadiel Note: Please also refer to the separate dictated note~for this date of service dictated separately.~Patient seen individually. Discussed the patient with Nursing staff reviewed the chart.~Reviewed interim history and current functioning. Reviewed vital signs,~Labs/ Radiology~and current medications noted below. Continue current treatment with the changes noted in the dictated addendum note Assessment: Vital Signs: Vital Signs Date Time Temp Pulse Resp B/P (MAP) Pulse Ox O2 Delivery O2 Flow Rate FiO2 07/01/18 16:41 98.5 86 18 121/78 (92) 97 06/28/18 16:17 Room Air I&O Intake and Output 07/01/18 07:01 Intake Total 840 ml Balance 840 ml Intake Oral 840 ml Current Medications: Meds: Current Medications Acetaminophen (Tylenol) 650 mg PRN Q6HRS PRN PO PAIN / TEMP Last administered on 06/30/18at 05:35; Start 06/26/18 at 16:45 Multi-Ingredient Ointment (Analgesic [place]) 1 tarik PRN QID PRN TP MUSCLE PAIN; Start 06/26/18 at 16:45 Al Hydroxide/Mg Hydroxide (Mylanta Plus Xs) 15 ml PRN AFTMEALHC PRN PO DYSPEPSIA; Start 06/26/18 at 16:45 Magnesium Hydroxide (Milk Of Magnesia) 2,400 mg PRN QHS PRN PO CONSTIPATION; Start 06/26/18 at 16:45 Phenazopyridine HCl (Pyridium) 100 mg PRN Q8HRS PRN PO URINARY DISCOMFORT; Start 06/26/18 at 18:15 Olanzapine (ZyPREXA ZYDIS) 2.5 mg PRN Q2HR PRN PO psychosis/agitation Last administered on 06/27/18at 23:36; Start 06/26/18 at 18:30 Rivastigmine (Exelon) 1 patch DAILY TD Last administered on 07/01/18at 07:38; Start 06/28/18 at 09:00; Stop 07/05/18 at 11:00 Rivastigmine (Exelon) 1 patch DAILY TD ; Start 07/06/18 at 09:00 Sertraline HCl (Zoloft) 25 mg DAILY PO Last administered on 07/01/18at 07:38; Start 06/28/18 at 09:00 Trazodone HCl (Desyrel) 50 mg QHS PO Last administered on 07/01/18at 19:29; Start 06/28/18 at 21:00 Trazodone HCl (Desyrel) 50 mg PRN QHS PRN PO INSOMNIA; Start 06/28/18 at 04:30 Vitamin D (Vitamin D3) 50,000 unit WEEKLY PO Last administered on 06/29/18at 16: 33; Start 06/29/18 at 16:15 Cyanocobalamin (Vitamin B-12) 1,000 mcg DAILY IM Last administered on at 07:38; Start 06/30/18 at 09:00 Mirtazapine (Remeron) 7.5 mg QHS PO Last administered on 07/01/18at 19:29; Start 06/29/18 at 21:00 Active Scripts Active Reported Compazine (Prochlorperazine Maleate) 5 Mg Tablet 5 Mg IVP PRN Q4HRS PRN Phenazopyridine Hcl 100 Mg Tablet 100 Mg PO PRN Q8HRS PRN Ondansetron Hcl 4 Mg/2 Ml Vial (Ondansetron Hcl/Pf) 4 Mg/2 Ml Vial 4 Mg IVP PRN Q6HRS PRN I have reviewed the current psychotropics carefully including drug interactions. Risk benefit ratio favors no change other than as noted in my dictated progress note. Diagnosis: Problems: (1) Unspecified psychosis (2) Anxiety disorder (3) Dementia, vascular, with delusions (4) Dementia, vascular, with depression (5) Dementia in Alzheimer's disease with delusions (6) Dementia in Alzheimer's disease with depression (7) Impulse control disorder (8) Psychosis, atypical CORA PRADHAN MD Jul 01, 2018 22:33
[2018-07-02 05:43] VITALS: BP 150/83
[2018-07-02] MEDS: SERTRALINE 25 MG TABLET. PO SCH (09:00)
[2018-07-02] MEDS: CYANOCOBALAMIN (VITAMIN B-12) 1,000 MCG/ML VIAL IM SCH (09:01)
[2018-07-02] MEDS: RIVASTIGMINE 4.6MG PATCH. TD SCH (09:01)
[2018-07-02 15:47] VITALS: BP 101/66
[2018-07-02] MEDS: MIRTAZAPINE 7.5 MG TABLET. PO SCH (20:49)
[2018-07-02] MEDS: traZODone 50 MG TABLET. PO SCH (20:49)
--- NOTE | 2018-07-02 22:04 | PN ---
DATE: 06/30/2018 PSYCHIATRIC PROGRESS NOTE This late entry 06/30/2018 covers elements not covered in my initial note. SUBJECTIVE: The patient slept 6-1/2 hours previous night, remains confused, complains of left elbow swelling, seen by Dr. Ewing, seems to have bursitis. REVIEW OF SYSTEMS: No CV, , eye system symptoms on review. MENTAL STATUS EXAM: He is otherwise, pleasant, cooperative, withdrawn, somewhat irritable at times. No suicidal or homicidal ideation. IMPRESSION: Unchanged from initial note. PLAN: No change from initial note. MAN Delilah PRADHAN MD DR: SINDI/kaden JOB#: [id number] / [id number]
--- NOTE | 2018-07-02 22:11 | PN ---
DATE: 07/01/2018 PSYCHIATRIC PROGRESS NOTE This late entry 07/01/2018 covers elements not covered in my initial note. SUBJECTIVE: I met with the patient in his room. The patient slept 4-1/4 hours previous night, cooperative with medications, woke up in the middle of the night, took a shower at 1:30 a.m., refused his medications on 07/01/2018 except the B12. He was somewhat demanding regarding hot and cold water, amongst other things. REVIEW OF SYSTEMS: No CV, , pulmonary, eye system symptoms on review. Does seem a little more irritable. MENTAL STATUS EXAM: Oriented to himself and situation. Speech has some latency, coherent, often responses monosyllabic. Abstraction fair, computation impaired, language function intact. Mood and affect somewhat withdrawn. LABORATORY DATA: Reviewed. IMPRESSION: Major neurocognitive disorder, Alzheimer, vascular with delusion, depression. Rest unchanged, major depressive disorder; anxiety disorder, unspecified. PLAN: Continue psychotropics from initial note. We will increase the Zoloft gradually, maintain Exelon patch, trazodone, Remeron, along with Zyprexa p.r.n. MAN Delilah PRADHAN MD DR: SINDI/kaden JOB#: [id number] / [id number]
--- NOTE | 2018-07-02 22:23 | PDOC ---
Exam Note: Gadiel Note: Please also refer to the separate dictated note~for this date of service dictated separately.~Patient seen individually. Discussed the patient with Nursing staff reviewed the chart.~Reviewed interim history and current functioning. Reviewed vital signs,~Labs/ Radiology~and current medications noted below. Continue current treatment with the changes noted in the dictated addendum note Assessment: Vital Signs: Vital Signs Date Time Temp Pulse Resp B/P (MAP) Pulse Ox O2 Delivery O2 Flow Rate FiO2 07/02/18 15:47 97.4 69 18 101/66 (78) 95 07/02/18 05:43 Room Air I&O Intake and Output 07/02/18 07:01 Intake Total 1320 ml Balance 1320 ml Intake Oral 1320 ml Current Medications: Meds: Current Medications Acetaminophen (Tylenol) 650 mg PRN Q6HRS PRN PO PAIN / TEMP Last administered on 06/30/18at 05:35; Start 06/26/18 at 16:45 Multi-Ingredient Ointment (Analgesic [place]) 1 tarik PRN QID PRN TP MUSCLE PAIN; Start 06/26/18 at 16:45 Al Hydroxide/Mg Hydroxide (Mylanta Plus Xs) 15 ml PRN AFTMEALHC PRN PO DYSPEPSIA; Start 06/26/18 at 16:45 Magnesium Hydroxide (Milk Of Magnesia) 2,400 mg PRN QHS PRN PO CONSTIPATION; Start 06/26/18 at 16:45 Phenazopyridine HCl (Pyridium) 100 mg PRN Q8HRS PRN PO URINARY DISCOMFORT; Start 06/26/18 at 18:15 Olanzapine (ZyPREXA ZYDIS) 2.5 mg PRN Q2HR PRN PO psychosis/agitation Last administered on 06/27/18at 23:36; Start 06/26/18 at 18:30 Rivastigmine (Exelon) 1 patch DAILY TD Last administered on 07/02/18at 09:01; Start 06/28/18 at 09:00; Stop 07/05/18 at 11:00 Rivastigmine (Exelon) 1 patch DAILY TD ; Start 07/06/18 at 09:00; Stop 07/06/18 at 09:00; Status DC Sertraline HCl (Zoloft) 25 mg DAILY PO Last administered on 07/02/18at 09:00; Start 06/28/18 at 09:00; Stop 07/02/18 at 16:42; Status DC Trazodone HCl (Desyrel) 50 mg QHS PO Last administered on 07/02/18at 20:49; Start 06/28/18 at 21:00 Trazodone HCl (Desyrel) 50 mg PRN QHS PRN PO INSOMNIA; Start 06/28/18 at 04:30 Vitamin D (Vitamin D3) 50,000 unit WEEKLY PO Last administered on 06/29/18at 16: 33; Start 06/29/18 at 16:15 Cyanocobalamin (Vitamin B-12) 1,000 mcg DAILY IM Last administered on at 09:01; Start 06/30/18 at 09:00 Mirtazapine (Remeron) 7.5 mg QHS PO Last administered on 07/02/18at 20:49; Start 06/29/18 at 21:00 Sertraline HCl (Zoloft) 50 mg DAILY PO ; Start 07/03/18 at 09:00 Rivastigmine (Exelon) 1 patch DAILY TD ; Start 07/03/18 at 09:00 Active Scripts Active Reported Compazine (Prochlorperazine Maleate) 5 Mg Tablet 5 Mg IVP PRN Q4HRS PRN Phenazopyridine Hcl 100 Mg Tablet 100 Mg PO PRN Q8HRS PRN Ondansetron Hcl 4 Mg/2 Ml Vial (Ondansetron Hcl/Pf) 4 Mg/2 Ml Vial 4 Mg IVP PRN Q6HRS PRN I have reviewed the current psychotropics carefully including drug interactions. Risk benefit ratio favors no change other than as noted in my dictated progress note. Diagnosis: Problems: (1) Unspecified psychosis (2) Anxiety disorder (3) Dementia, vascular, with delusions (4) Dementia, vascular, with depression (5) Dementia in Alzheimer's disease with delusions (6) Dementia in Alzheimer's disease with depression (7) Impulse control disorder (8) Psychosis, atypical CORA PRADHAN MD Jul 02, 2018 22:23
[2018-07-03 06:21] VITALS: BP 100/54
[2018-07-03] MEDS: RIVASTIGMINE 4.6MG PATCH. TD SCH (09:00)
[2018-07-03] MEDS: CYANOCOBALAMIN (VITAMIN B-12) 1,000 MCG/ML VIAL IM SCH (09:47)
[2018-07-03] MEDS: SERTRALINE 50 MG TABLET. PO SCH (09:47)
[2018-07-03] MEDS: RIVASTIGMINE 9.5MG PATCH. TD SCH (09:48)
[2018-07-03 17:00] VITALS: BP 122/75
[2018-07-03] MEDS: traZODone 50 MG TABLET. PO SCH (19:34)
[2018-07-03] MEDS: MIRTAZAPINE 15 MG TABLET PO SCH (19:35)
--- NOTE | 2018-07-03 22:37 | PDOC ---
Exam Note: Gadiel Note: Please also refer to the separate dictated note~for this date of service dictated separately.~Patient seen individually. Discussed the patient with Nursing staff reviewed the chart.~Reviewed interim history and current functioning. Reviewed vital signs,~Labs/ Radiology~and current medications noted below. Continue current treatment with the changes noted in the dictated addendum note Assessment: Vital Signs: Vital Signs Date Time Temp Pulse Resp B/P (MAP) Pulse Ox O2 Delivery O2 Flow Rate FiO2 07/03/18 17:00 98.7 68 18 122/75 (91) 97 07/02/18 05:43 Room Air I&O Intake and Output 07/03/18 07:01 Intake Total 840 ml Balance 840 ml Intake Oral 840 ml Current Medications: Meds: Current Medications Acetaminophen (Tylenol) 650 mg PRN Q6HRS PRN PO PAIN / TEMP Last administered on 06/30/18at 05:35; Start 06/26/18 at 16:45 Multi-Ingredient Ointment (Analgesic [place]) 1 tarik PRN QID PRN TP MUSCLE PAIN; Start 06/26/18 at 16:45 Al Hydroxide/Mg Hydroxide (Mylanta Plus Xs) 15 ml PRN AFTMEALHC PRN PO DYSPEPSIA; Start 06/26/18 at 16:45 Magnesium Hydroxide (Milk Of Magnesia) 2,400 mg PRN QHS PRN PO CONSTIPATION; Start 06/26/18 at 16:45 Phenazopyridine HCl (Pyridium) 100 mg PRN Q8HRS PRN PO URINARY DISCOMFORT; Start 06/26/18 at 18:15 Olanzapine (ZyPREXA ZYDIS) 2.5 mg PRN Q2HR PRN PO psychosis/agitation Last administered on 06/27/18at 23:36; Start 06/26/18 at 18:30 Rivastigmine (Exelon) 1 patch DAILY TD Last administered on 07/02/18at 09:01; Start 06/28/18 at 09:00; Stop 07/05/18 at 11:00 Rivastigmine (Exelon) 1 patch DAILY TD ; Start 07/06/18 at 09:00; Stop 07/06/18 at 09:00; Status DC Sertraline HCl (Zoloft) 25 mg DAILY PO Last administered on 07/02/18at 09:00; Start 06/28/18 at 09:00; Stop 07/02/18 at 16:42; Status DC Trazodone HCl (Desyrel) 50 mg QHS PO Last administered on 07/03/18at 19:34; Start 06/28/18 at 21:00 Trazodone HCl (Desyrel) 50 mg PRN QHS PRN PO INSOMNIA; Start 06/28/18 at 04:30 Vitamin D (Vitamin D3) 50,000 unit WEEKLY PO Last administered on 06/29/18at 16: 33; Start 06/29/18 at 16:15 Cyanocobalamin (Vitamin B-12) 1,000 mcg DAILY IM Last administered on 09:47; Start 06/30/18 at 09:00 Mirtazapine (Remeron) 7.5 mg QHS PO Last administered on 07/02/18 20:49; Start 06/29/18 at 21:00; Stop 07/03/18 at 16:57; Status DC Sertraline HCl (Zoloft) 50 mg DAILY PO Last administered on 07/03/18 09:47; Start 07/03/18 at 09:00 Rivastigmine (Exelon) 1 patch DAILY TD Last administered on 07/03/18 09:48; Start 07/03/18 at 09:00 Mirtazapine (Remeron) 15 mg QHS PO Last administered on 07/03/18 19:35; Start 07/03/18 at 21:00 Active Scripts Active Reported Compazine (Prochlorperazine Maleate) 5 Mg Tablet 5 Mg IVP PRN Q4HRS PRN Phenazopyridine Hcl 100 Mg Tablet 100 Mg PO PRN Q8HRS PRN Ondansetron Hcl 4 Mg/2 Ml Vial (Ondansetron Hcl/Pf) 4 Mg/2 Ml Vial 4 Mg IVP PRN Q6HRS PRN I have reviewed the current psychotropics carefully including drug interactions. Risk benefit ratio favors no change other than as noted in my dictated progress note. Diagnosis: Problems: (1) Unspecified psychosis (2) Anxiety disorder (3) Dementia, vascular, with delusions (4) Dementia, vascular, with depression (5) Dementia in Alzheimer's disease with delusions (6) Dementia in Alzheimer's disease with depression (7) Impulse control disorder (8) Psychosis, atypical CORA PRADHAN MD Jul 03, 2018 22:37
--- NOTE | 2018-07-04 01:01 | PN ---
DATE: 07/02/2018 PSYCHIATRIC PROGRESS NOTE This late entry of 07/02/2018 covers elements not covered in my initial note of 07/02/2018. SUBJECTIVE: I met with the patient in his room the evening of 07/02/2018. The patient slept 4-1/2 hours previous night. UA is negative. He has been calm, somewhat withdrawn, spends much time in his room and is compliant with his medications. Short term memory deficits are quite evident, still somewhat depressed. REVIEW OF SYSTEMS: No CV, , pulmonary, eye, ENT system symptoms on review. MENTAL STATUS EXAM: Oriented to himself and situation. Speech has some latency, low in volume, coherent, abstraction fair, computation impaired, language function intact, attention span short. Mood and affect still somewhat dysphoric, anxious, withdrawn, but no suicidal or homicidal ideation. LABORATORY DATA: Reviewed. IMPRESSION: Psychotic disorder, unspecified; major neurocognitive disorder consequent to past history of alcohol abuse, possibly vascular, Alzheimer's with delusion, depression, behavioral disturbance; anxiety disorder, unspecified. Rest unchanged. PLAN: From a psychiatric standpoint, increase Zoloft from 25 mg a day to 50 mg a day and Exelon patch from 4.6 mg a day to 9.5 mg a day. Continue Remeron 7.5 at bedtime; trazodone 50 at bedtime, may repeat x 1 for insomnia p.r.n. and Zyprexa p.r.n. MAN Delilah PRADHAN MD DR: SINDI/kaden JOB#: [id number] / [id number]
[2018-07-04 05:36] VITALS: BP 132/79
[2018-07-04] MEDS: SERTRALINE 50 MG TABLET. PO SCH (08:03)
[2018-07-04] MEDS: RIVASTIGMINE 9.5MG PATCH. TD SCH (08:03)
[2018-07-04] MEDS: RIVASTIGMINE 4.6MG PATCH. TD SCH (08:03)
[2018-07-04] MEDS: CYANOCOBALAMIN (VITAMIN B-12) 1,000 MCG/ML VIAL IM SCH (08:03)
[2018-07-04 16:40] VITALS: BP 125/70
[2018-07-04] MEDS: MIRTAZAPINE 15 MG TABLET PO SCH (19:45)
[2018-07-04] MEDS: traZODone 50 MG TABLET. PO SCH (19:45)
--- NOTE | 2018-07-04 22:49 | PDOC ---
Exam Note: Gadiel Note: Please also refer to the separate dictated note~for this date of service dictated separately.~Patient seen individually. Discussed the patient with Nursing staff reviewed the chart.~Reviewed interim history and current functioning. Reviewed vital signs,~Labs/ Radiology~and current medications noted below. Continue current treatment with the changes noted in the dictated addendum note Assessment: Vital Signs: Vital Signs Date Time Temp Pulse Resp B/P (MAP) Pulse Ox O2 Delivery O2 Flow Rate FiO2 07/04/18 16:40 98.1 72 16 125/70 (88) 99 07/02/18 05:43 Room Air I&O Intake and Output 07/04/18 07:01 Intake Total 1180 ml Balance 1180 ml Intake Oral 1180 ml Current Medications: Meds: Current Medications Acetaminophen (Tylenol) 650 mg PRN Q6HRS PRN PO PAIN / TEMP Last administered on 06/30/18at 05:35; Start 06/26/18 at 16:45 Multi-Ingredient Ointment (Analgesic [place]) 1 tarik PRN QID PRN TP MUSCLE PAIN; Start 06/26/18 at 16:45 Al Hydroxide/Mg Hydroxide (Mylanta Plus Xs) 15 ml PRN AFTMEALHC PRN PO DYSPEPSIA; Start 06/26/18 at 16:45 Magnesium Hydroxide (Milk Of Magnesia) 2,400 mg PRN QHS PRN PO CONSTIPATION; Start 06/26/18 at 16:45 Phenazopyridine HCl (Pyridium) 100 mg PRN Q8HRS PRN PO URINARY DISCOMFORT; Start 06/26/18 at 18:15 Olanzapine (ZyPREXA ZYDIS) 2.5 mg PRN Q2HR PRN PO psychosis/agitation Last administered on 06/27/18at 23:36; Start 06/26/18 at 18:30 Rivastigmine (Exelon) 1 patch DAILY TD Last administered on 07/04/18at 08:03; Start 06/28/18 at 09:00; Stop 07/05/18 at 11:00 Rivastigmine (Exelon) 1 patch DAILY TD ; Start 07/06/18 at 09:00; Stop 07/06/18 at 09:00; Status DC Sertraline HCl (Zoloft) 25 mg DAILY PO Last administered on 07/02/18at 09:00; Start 06/28/18 at 09:00; Stop 07/02/18 at 16:42; Status DC Trazodone HCl (Desyrel) 50 mg QHS PO Last administered on 07/04/18 19:45; Start 06/28/18 at 21:00 Trazodone HCl (Desyrel) 50 mg PRN QHS PRN PO INSOMNIA; Start 06/28/18 at 04:30 Vitamin D (Vitamin D3) 50,000 unit WEEKLY PO Last administered on 06/29/18at 16: 33; Start 06/29/18 at 16:15 Cyanocobalamin (Vitamin B-12) 1,000 mcg DAILY IM Last administered on 08:03; Start 06/30/18 at 09:00 Mirtazapine (Remeron) 7.5 mg QHS PO Last administered on 07/02/18 20:49; Start 06/29/18 at 21:00; Stop 07/03/18 at 16:57; Status DC Sertraline HCl (Zoloft) 50 mg DAILY PO Last administered on 07/04/18 08:03; Start 07/03/18 at 09:00 Rivastigmine (Exelon) 1 patch DAILY TD Last administered on 07/04/18 08:03; Start 07/03/18 at 09:00 Mirtazapine (Remeron) 15 mg QHS PO Last administered on 07/04/18 19:45; Start 07/03/18 at 21:00 Active Scripts Active Reported Compazine (Prochlorperazine Maleate) 5 Mg Tablet 5 Mg IVP PRN Q4HRS PRN Phenazopyridine Hcl 100 Mg Tablet 100 Mg PO PRN Q8HRS PRN Ondansetron Hcl 4 Mg/2 Ml Vial (Ondansetron Hcl/Pf) 4 Mg/2 Ml Vial 4 Mg IVP PRN Q6HRS PRN I have reviewed the current psychotropics carefully including drug interactions. Risk benefit ratio favors no change other than as noted in my dictated progress note. Diagnosis: Problems: (1) Unspecified psychosis (2) Anxiety disorder (3) Dementia, vascular, with delusions (4) Dementia, vascular, with depression (5) Dementia in Alzheimer's disease with delusions (6) Dementia in Alzheimer's disease with depression (7) Impulse control disorder (8) Psychosis, atypical CORA PRADHAN MD Jul 04, 2018 22:49
[2018-07-05 06:00] VITALS: BP 127/75
[2018-07-05 07:01] LABS: BASO % 1 % (0-3); EOS # 0.3 x10^3/uL (0.0-0.7); EOS % 5 % (0-3); HEMATOCRIT 38.6 % (39.0-53.0); HEMOGLOBIN 12.6 g/dL (13.0-17.5); LYMPH # 0.6 x10^3/uL (1.0-4.8); LYMPH % 11 % (24-48); MEAN CORPUSCULAR HEMOGLOBIN 31 pg (25-35); MEAN CORPUSCULAR HGB CONC 33 g/dL (31-37); MEAN CORPUSCULAR VOLUME 95 fL (79-100); MONO # 0.6 x10^3/uL (0.0-1.1); MONO % 13 % (0-9); NEUT # 3.5 x10^3uL (1.8-7.7); NEUT % 70 % (31-73); PLATELET COUNT 190 x10^3/uL (140-400); RED BLOOD COUNT 4.07 x10^6/uL (4.30-5.70); RED CELL DISTRIBUTION WIDTH 15.6 % (11.5-14.5)
[2018-07-05 07:20] LABS: ALBUMIN 3.3 g/dL (3.4-5.0); ALBUMIN/GLOBULIN RATIO 0.8 (1.0-1.7); CALCIUM 8.7 mg/dL (8.5-10.1); CREATININE 0.8 mg/dL (0.7-1.3); GFR 95.6; POTASSIUM 3.6 mmol/L (3.5-5.1); TOTAL BILIRUBIN 0.4 mg/dL (0.2-1.0); TOTAL PROTEIN 7.2 g/dL (6.4-8.2)
[2018-07-05] MEDS: CYANOCOBALAMIN (VITAMIN B-12) 1,000 MCG/ML VIAL IM SCH (08:34)
[2018-07-05] MEDS: SERTRALINE 50 MG TABLET. PO SCH (08:34)
[2018-07-05] MEDS: RIVASTIGMINE 9.5MG PATCH. TD SCH (08:35)
[2018-07-05] MEDS: RIVASTIGMINE 4.6MG PATCH. TD SCH (08:35)
--- NOTE | 2018-07-05 16:06 | PN ---
DATE: 07/03/2018 PSYCHIATRIC PROGRESS NOTE This late entry 07/03/2018 covers elements not covered in my initial note. SUBJECTIVE: I met with the patient in his room at length in the evening. The patient is sleeping an average of 4 hours, slept 3 hours previous night, resistive with medications. Previous night, took them later. Zoloft and Exelon patch were increased the day before. REVIEW OF SYSTEMS: No CV, , pulmonary, eye, ENT system symptoms on review. MENTAL STATUS EXAM: Oriented to himself and situation. Speech moderate latency, often responses monosyllabic. Abstraction fair, computation impaired, language function intact, attention span short. Mood and affect withdrawn. No suicidal ideation. LABORATORY DATA: Reviewed. IMPRESSION: Major neurocognitive disorder, Alzheimer, vascular with delusion, depression, behavioral disturbance; anxiety disorder, unspecified; impulse control disorder, unspecified. I reviewed his CT head report done at [facility] showing global cerebral atrophy. Harden-white matter interface is intact. There is no evidence of acute intracranial hemorrhage or infarct. IMPRESSION: Unchanged from initial note. PLAN: Continue current psychotropics, increase bedtime Remeron from 7.5 mg to 15 mg. Rest unchanged from initial note. CORA PRADHAN MD DR: SINDI/kaden JOB#: [id number] / [id number]
[2018-07-05 16:51] VITALS: BP 128/71
--- NOTE | 2018-07-05 21:13 | PN ---
DATE: 07/04/2018 PSYCHIATRIC PROGRESS NOTE This late entry 07/04/2018 covers elements not covered in my initial note. SUBJECTIVE: I met with the patient in the evening and staffed at a treatment team meeting with the entire team in the morning and the patient's daughter, Nolvia, attended the lengthy treatment team meeting. We reviewed the patient's history, diagnosis, progress, placement options. Family is unsure whether he should return home or for placement. We discussed that the family should visit him over the weekend and we will continue to reassess and then confer early next week to make a final decision. Appetite 100%, sleeping about 5 hours withdrawn and I met with him in his room at some length in the evening. REVIEW OF SYSTEMS: No CV, , pulmonary, eye, ENT system symptoms on review. Reliability poor. MENTAL STATUS EXAMINATION: Oriented to himself, situation. Speech has some latency, coherent, often responses monosyllabic. Abstraction fair, computation impaired, language function intact. Mood and affect remain somewhat withdrawn. LABORATORY DATA: Reviewed. IMPRESSION: Major neurocognitive disorder, Alzheimer, vascular with delusion, depression; anxiety disorder, unspecified. CT head report from [facility] shows cortical atrophy which is fairly generalized. PLAN: Continue psychotropics from initial note and diagnosis mentioned in initial note. MAN Delilah PRADHAN MD DR: SINDI/kaden JOB#: [id number] / [id number]
[2018-07-05] MEDS: traZODone 50 MG TABLET. PO SCH (21:17)
[2018-07-05] MEDS: MIRTAZAPINE 15 MG TABLET PO SCH (21:17)
--- NOTE | 2018-07-05 22:39 | PDOC ---
Exam Note: Gadiel Note: Please also refer to the separate dictated note~for this date of service dictated separately.~Patient seen individually. Discussed the patient with Nursing staff reviewed the chart.~Reviewed interim history and current functioning. Reviewed vital signs,~Labs/ Radiology~and current medications noted below. Continue current treatment with the changes noted in the dictated addendum note Assessment: Vital Signs: Vital Signs Date Time Temp Pulse Resp B/P (MAP) Pulse Ox O2 Delivery O2 Flow Rate FiO2 07/05/18 16:51 97.9 70 18 128/71 (90) 99 Room Air I&O Intake and Output 07/05/18 07:01 Intake Total 940 ml Balance 940 ml Intake Oral 940 ml # Voids 1 Labs: Laboratory Tests Test 07/05/18 06:20 White Blood Count 5.0 x10^3/uL (4.0-11.0) Red Blood Count 4.07 x10^6/uL (4.30-5.70) L Hemoglobin 12.6 g/dL (13.0-17.5) L Hematocrit 38.6 % (39.0-53.0) L Mean Corpuscular Volume 95 fL (79-100) Mean Corpuscular Hemoglobin 31 pg (25-35) Mean Corpuscular Hemoglobin Concent 33 g/dL (31-37) Red Cell Distribution Width 15.6 % (11.5-14.5) H Platelet Count 190 x10^3/uL (140-400) Neutrophils (%) (Auto) 70 % (31-73) Lymphocytes (%) (Auto) 11 % (24-48) L Monocytes (%) (Auto) 13 % (0-9) H Eosinophils (%) (Auto) 5 % (0-3) H Basophils (%) (Auto) 1 % (0-3) Neutrophils # (Auto) 3.5 x10^3uL (1.8-7.7) Lymphocytes # (Auto) 0.6 x10^3/uL (1.0-4.8) L Monocytes # (Auto) 0.6 x10^3/uL (0.0-1.1) Eosinophils # (Auto) 0.3 x10^3/uL (0.0-0.7) Basophils # (Auto) 0.0 x10^3/uL (0.0-0.2) Sodium Level 145 mmol/L (136-145) Potassium Level 3.6 mmol/L (3.5-5.1) Chloride Level 106 mmol/L (98-107) Carbon Dioxide Level 32 mmol/L (21-32) Anion Gap 7 (6-14) Blood Urea Nitrogen 22 mg/dL (8-26) Creatinine 0.8 mg/dL (0.7-1.3) Estimated GFR (Cockcroft-Gault) 95.6 BUN/Creatinine Ratio 28 (6-20) H Glucose Level 92 mg/dL (70-99) Calcium Level 8.7 mg/dL (8.5-10.1) Total Bilirubin 0.4 mg/dL (0.2-1.0) Aspartate Amino Transferase (AST) 20 U/L (15-37) Alanine Aminotransferase (ALT) 17 U/L (16-63) Alkaline Phosphatase 89 U/L (46-116) Total Protein 7.2 g/dL (6.4-8.2) Albumin 3.3 g/dL (3.4-5.0) L Albumin/Globulin Ratio 0.8 (1.0-1.7) L Current Medications: Meds: Current Medications Acetaminophen (Tylenol) 650 mg PRN Q6HRS PRN PO PAIN / TEMP Last administered on 06/30/18at 05:35; Start 06/26/18 at 16:45 Multi-Ingredient Ointment (Analgesic [place]) 1 tarik PRN QID PRN TP MUSCLE PAIN; Start 06/26/18 at 16:45 Al Hydroxide/Mg Hydroxide (Mylanta Plus Xs) 15 ml PRN AFTMEALHC PRN PO DYSPEPSIA; Start 06/26/18 at 16:45 Magnesium Hydroxide (Milk Of Magnesia) 2,400 mg PRN QHS PRN PO CONSTIPATION; Start 06/26/18 at 16:45 Phenazopyridine HCl (Pyridium) 100 mg PRN Q8HRS PRN PO URINARY DISCOMFORT; Start 06/26/18 at 18:15 Olanzapine (ZyPREXA ZYDIS) 2.5 mg PRN Q2HR PRN PO psychosis/agitation Last administered on 06/27/18at 23:36; Start 06/26/18 at 18:30 Rivastigmine (Exelon) 1 patch DAILY TD Last administered on 07/05/18 08:35; Start 06/28/18 at 09:00; Stop 07/05/18 at 11:00; Status DC Rivastigmine (Exelon) 1 patch DAILY TD ; Start 07/06/18 at 09:00; Stop 07/06/18 at 09:00; Status DC Sertraline HCl (Zoloft) 25 mg DAILY PO Last administered on 07/02/18at 09:00; Start 06/28/18 at 09:00; Stop 07/02/18 at 16:42; Status DC Trazodone HCl (Desyrel) 50 mg QHS PO Last administered on 07/05/18 21:17; Start 06/28/18 at 21:00 Trazodone HCl (Desyrel) 50 mg PRN QHS PRN PO INSOMNIA; Start 06/28/18 at 04:30 Vitamin D (Vitamin D3) 50,000 unit WEEKLY PO Last administered on 06/29/18at 16: 33; Start 06/29/18 at 16:15 Cyanocobalamin (Vitamin B-12) 1,000 mcg DAILY IM Last administered on 08:34; Start 06/30/18 at 09:00 Mirtazapine (Remeron) 7.5 mg QHS PO Last administered on 07/02/18at 20:49; Start 06/29/18 at 21:00; Stop 07/03/18 at 16:57; Status DC Sertraline HCl (Zoloft) 50 mg DAILY PO Last administered on 07/05/18 08:34; Start 07/03/18 at 09:00; Stop 07/05/18 at 16:43; Status DC Rivastigmine (Exelon) 1 patch DAILY TD Last administered on 07/05/18 08:35; Start 07/03/18 at 09:00 Mirtazapine (Remeron) 15 mg QHS PO Last administered on 07/05/18 21:17; Start 07/03/18 at 21:00 Sertraline HCl (Zoloft) 75 mg DAILY PO ; Start 07/06/18 at 09:00 Active Scripts Active Reported Compazine (Prochlorperazine Maleate) 5 Mg Tablet 5 Mg IVP PRN Q4HRS PRN Phenazopyridine Hcl 100 Mg Tablet 100 Mg PO PRN Q8HRS PRN Ondansetron Hcl 4 Mg/2 Ml Vial (Ondansetron Hcl/Pf) 4 Mg/2 Ml Vial 4 Mg IVP PRN Q6HRS PRN I have reviewed the current psychotropics carefully including drug interactions. Risk benefit ratio favors no change other than as noted in my dictated progress note. Diagnosis: Problems: (1) Unspecified psychosis (2) Anxiety disorder (3) Dementia, vascular, with delusions (4) Dementia, vascular, with depression (5) Dementia in Alzheimer's disease with delusions (6) Dementia in Alzheimer's disease with depression (7) Impulse control disorder (8) Psychosis, atypical CORA PRADHAN MD Jul 05, 2018 22:39
[2018-07-06 06:28] VITALS: BP 125/80
[2018-07-06] MEDS: CYANOCOBALAMIN (VITAMIN B-12) 1,000 MCG/ML VIAL IM SCH (08:47)
[2018-07-06] MEDS: RIVASTIGMINE 9.5MG PATCH. TD SCH (08:47)
[2018-07-06] MEDS: SERTRALINE 25 MG TABLET. PO SCH (08:50)
[2018-07-06] MEDS: CHOLECALCIFEROL (VITAMIN D3) 50,000 UNIT CAPSULE PO SCH (08:51)
[2018-07-06] MEDS ORDERED: RIVASTIGMINE 9.5MG PATCH. TD SCH (09:00)
[2018-07-06 15:51] VITALS: BP 99/59
[2018-07-06] MEDS: traZODone 50 MG TABLET. PO SCH (19:44)
[2018-07-06] MEDS: MIRTAZAPINE 15 MG TABLET PO SCH (19:45)
--- NOTE | 2018-07-06 22:17 | PDOC ---
Exam Note: Gadiel Note: Please also refer to the separate dictated note~for this date of service dictated separately.~Patient seen individually. Discussed the patient with Nursing staff reviewed the chart.~Reviewed interim history and current functioning. Reviewed vital signs,~Labs/ Radiology~and current medications noted below. Continue current treatment with the changes noted in the dictated addendum note Assessment: Vital Signs: Vital Signs Date Time Temp Pulse Resp B/P (MAP) Pulse Ox O2 Delivery O2 Flow Rate FiO2 07/06/18 15:51 97.9 79 18 99/59 (72) 97 07/05/18 16:51 Room Air I&O Intake and Output 07/06/18 07:01 Intake Total 1080 ml Balance 1080 ml Intake Oral 1080 ml Current Medications: Meds: Current Medications Acetaminophen (Tylenol) 650 mg PRN Q6HRS PRN PO PAIN / TEMP Last administered on 06/30/18at 05:35; Start 06/26/18 at 16:45 Multi-Ingredient Ointment (Analgesic [place]) 1 tarik PRN QID PRN TP MUSCLE PAIN; Start 06/26/18 at 16:45 Al Hydroxide/Mg Hydroxide (Mylanta Plus Xs) 15 ml PRN AFTMEALHC PRN PO DYSPEPSIA; Start 06/26/18 at 16:45 Magnesium Hydroxide (Milk Of Magnesia) 2,400 mg PRN QHS PRN PO CONSTIPATION; Start 06/26/18 at 16:45 Phenazopyridine HCl (Pyridium) 100 mg PRN Q8HRS PRN PO URINARY DISCOMFORT; Start 06/26/18 at 18:15 Olanzapine (ZyPREXA ZYDIS) 2.5 mg PRN Q2HR PRN PO psychosis/agitation Last administered on 06/27/18at 23:36; Start 06/26/18 at 18:30 Rivastigmine (Exelon) 1 patch DAILY TD Last administered on 07/05/18at 08:35; Start 06/28/18 at 09:00; Stop 07/05/18 at 11:00; Status DC Rivastigmine (Exelon) 1 patch DAILY TD ; Start 07/06/18 at 09:00; Stop 07/06/18 at 09:00; Status DC Sertraline HCl (Zoloft) 25 mg DAILY PO Last administered on 07/02/18at 09:00; Start 06/28/18 at 09:00; Stop 07/02/18 at 16:42; Status DC Trazodone HCl (Desyrel) 50 mg QHS PO Last administered on 07/06/18at 19:44; Start 06/28/18 at 21:00 Trazodone HCl (Desyrel) 50 mg PRN QHS PRN PO INSOMNIA; Start 06/28/18 at 04:30 Vitamin D (Vitamin D3) 50,000 unit WEEKLY PO Last administered on 07/06/18 08: 51; Start 06/29/18 at 16:15 Cyanocobalamin (Vitamin B-12) 1,000 mcg DAILY IM Last administered on 08:47; Start 06/30/18 at 09:00 Mirtazapine (Remeron) 7.5 mg QHS PO Last administered on 07/02/18 20:49; Start 06/29/18 at 21:00; Stop 07/03/18 at 16:57; Status DC Sertraline HCl (Zoloft) 50 mg DAILY PO Last administered on 07/05/18at 08:34; Start 07/03/18 at 09:00; Stop 07/05/18 at 16:43; Status DC Rivastigmine (Exelon) 1 patch DAILY TD Last administered on 07/06/18 08:47; Start 07/03/18 at 09:00 Mirtazapine (Remeron) 15 mg QHS PO Last administered on 07/06/18 19:45; Start 07/03/18 at 21:00 Sertraline HCl (Zoloft) 75 mg DAILY PO Last administered on 07/06/18 08:50; Start 07/06/18 at 09:00 Active Scripts Active Reported Compazine (Prochlorperazine Maleate) 5 Mg Tablet 5 Mg IVP PRN Q4HRS PRN Phenazopyridine Hcl 100 Mg Tablet 100 Mg PO PRN Q8HRS PRN Ondansetron Hcl 4 Mg/2 Ml Vial (Ondansetron Hcl/Pf) 4 Mg/2 Ml Vial 4 Mg IVP PRN Q6HRS PRN I have reviewed the current psychotropics carefully including drug interactions. Risk benefit ratio favors no change other than as noted in my dictated progress note. Diagnosis: Problems: (1) Unspecified psychosis (2) Anxiety disorder (3) Dementia, vascular, with delusions (4) Dementia, vascular, with depression (5) Dementia in Alzheimer's disease with delusions (6) Dementia in Alzheimer's disease with depression (7) Impulse control disorder (8) Psychosis, atypical CORA PRADHAN MD Jul 06, 2018 22:17
--- NOTE | 2018-07-07 05:16 | PN ---
DATE: 07/05/2018 PSYCHIATRIC PROGRESS NOTE This is a late entry of 07/05/2018 covers elements not covered in my initial note. SUBJECTIVE: I met with the patient in the evening in his room at length. The patient slept 4-1/2 hours previous night, refused his B12 IM injection, somewhat withdrawn, resistive to meds at times. REVIEW OF SYSTEMS: No CV, , pulmonary, eye, ENT system symptoms on review. MENTAL STATUS EXAM: Oriented to himself and situation. Speech has some latency, coherent. Abstraction fair, computation impaired, language function intact, attention span short. Mood and affect remain somewhat withdrawn. No suicidal ideation. LABORATORY DATA: Reviewed. IMPRESSION: Unchanged from initial note. PLAN: Increase Zoloft to 75 mg a day after he has been on 50 mg for 3 days. Rest unchanged from initial note. MAN Delilah PRADHAN MD DR: SINDI/kaden JOB#: [id number] / [id number]
[2018-07-07 05:56] VITALS: BP 120/71
[2018-07-07] MEDS: RIVASTIGMINE 9.5MG PATCH. TD SCH (07:55)
[2018-07-07] MEDS: SERTRALINE 25 MG TABLET. PO SCH (07:56)
[2018-07-07] MEDS: CYANOCOBALAMIN (VITAMIN B-12) 1,000 MCG/ML VIAL IM SCH (07:56)
[2018-07-07 16:13] VITALS: BP 103/60
[2018-07-07] MEDS: MIRTAZAPINE 15 MG TABLET PO SCH (20:14)
[2018-07-07] MEDS: traZODone 50 MG TABLET. PO SCH (20:14)
--- NOTE | 2018-07-07 22:57 | PDOC ---
Exam Note: Gadiel Note: Please also refer to the separate dictated note~for this date of service dictated separately.~Patient seen individually. Discussed the patient with Nursing staff reviewed the chart.~Reviewed interim history and current functioning. Reviewed vital signs,~Labs/ Radiology~and current medications noted below. Continue current treatment with the changes noted in the dictated addendum note Assessment: Vital Signs: Vital Signs Date Time Temp Pulse Resp B/P (MAP) Pulse Ox O2 Delivery O2 Flow Rate FiO2 07/07/18 16:13 98.1 78 18 103/60 (74) 100 07/05/18 16:51 Room Air I&O Intake and Output 07/07/18 07:01 Intake Total 1080 ml Balance 1080 ml Intake Oral 1080 ml # Voids 1 Current Medications: Meds: Current Medications Acetaminophen (Tylenol) 650 mg PRN Q6HRS PRN PO PAIN / TEMP Last administered on 06/30/18at 05:35; Start 06/26/18 at 16:45 Multi-Ingredient Ointment (Analgesic [place]) 1 tarik PRN QID PRN TP MUSCLE PAIN; Start 06/26/18 at 16:45 Al Hydroxide/Mg Hydroxide (Mylanta Plus Xs) 15 ml PRN AFTMEALHC PRN PO DYSPEPSIA; Start 06/26/18 at 16:45 Magnesium Hydroxide (Milk Of Magnesia) 2,400 mg PRN QHS PRN PO CONSTIPATION; Start 06/26/18 at 16:45 Phenazopyridine HCl (Pyridium) 100 mg PRN Q8HRS PRN PO URINARY DISCOMFORT; Start 06/26/18 at 18:15 Olanzapine (ZyPREXA ZYDIS) 2.5 mg PRN Q2HR PRN PO psychosis/agitation Last administered on 06/27/18at 23:36; Start 06/26/18 at 18:30 Rivastigmine (Exelon) 1 patch DAILY TD Last administered on 07/05/18at 08:35; Start 06/28/18 at 09:00; Stop 07/05/18 at 11:00; Status DC Rivastigmine (Exelon) 1 patch DAILY TD ; Start 07/06/18 at 09:00; Stop 07/06/18 at 09:00; Status DC Sertraline HCl (Zoloft) 25 mg DAILY PO Last administered on 07/02/18at 09:00; Start 06/28/18 at 09:00; Stop 07/02/18 at 16:42; Status DC Trazodone HCl (Desyrel) 50 mg QHS PO Last administered on 07/07/18 20:14; Start 06/28/18 at 21:00 Trazodone HCl (Desyrel) 50 mg PRN QHS PRN PO INSOMNIA; Start 06/28/18 at 04:30 Vitamin D (Vitamin D3) 50,000 unit WEEKLY PO Last administered on 07/06/18 08: 51; Start 06/29/18 at 16:15 Cyanocobalamin (Vitamin B-12) 1,000 mcg DAILY IM Last administered on 07:56; Start 06/30/18 at 09:00 Mirtazapine (Remeron) 7.5 mg QHS PO Last administered on 07/02/18 20:49; Start 06/29/18 at 21:00; Stop 07/03/18 at 16:57; Status DC Sertraline HCl (Zoloft) 50 mg DAILY PO Last administered on 07/05/18 08:34; Start 07/03/18 at 09:00; Stop 07/05/18 at 16:43; Status DC Rivastigmine (Exelon) 1 patch DAILY TD Last administered on 07/07/18 07:55; Start 07/03/18 at 09:00 Mirtazapine (Remeron) 15 mg QHS PO Last administered on 07/07/18 20:14; Start 07/03/18 at 21:00 Sertraline HCl (Zoloft) 75 mg DAILY PO Last administered on 07/07/18 07:56; Start 07/06/18 at 09:00 Active Scripts Active Reported Compazine (Prochlorperazine Maleate) 5 Mg Tablet 5 Mg IVP PRN Q4HRS PRN Phenazopyridine Hcl 100 Mg Tablet 100 Mg PO PRN Q8HRS PRN Ondansetron Hcl 4 Mg/2 Ml Vial (Ondansetron Hcl/Pf) 4 Mg/2 Ml Vial 4 Mg IVP PRN Q6HRS PRN I have reviewed the current psychotropics carefully including drug interactions. Risk benefit ratio favors no change other than as noted in my dictated progress note. Diagnosis: Problems: (1) Unspecified psychosis (2) Anxiety disorder (3) Dementia, vascular, with delusions (4) Dementia, vascular, with depression (5) Dementia in Alzheimer's disease with delusions (6) Dementia in Alzheimer's disease with depression (7) Impulse control disorder (8) Psychosis, atypical CORA PRADHAN MD Jul 07, 2018 22:57
[2018-07-08 05:25] VITALS: BP 104/60
[2018-07-08] MEDS: RIVASTIGMINE 9.5MG PATCH. TD SCH (07:58)
[2018-07-08] MEDS: CYANOCOBALAMIN (VITAMIN B-12) 1,000 MCG/ML VIAL IM SCH (07:58)
[2018-07-08] MEDS: SERTRALINE 25 MG TABLET. PO SCH (07:58)
[2018-07-08 15:44] VITALS: BP 131/78
[2018-07-08] MEDS: MIRTAZAPINE 15 MG TABLET PO SCH ×2 (19:35→21:00)
[2018-07-08] MEDS: traZODone 50 MG TABLET. PO SCH ×2 (19:35→21:00)
--- NOTE | 2018-07-08 21:45 | PN ---
DATE: 07/07/2018 This late entry for 07/07/2018 covers elements not covered in my initial note. SUBJECTIVE: I met with the patient at length in his room. He remains somewhat withdrawn, isolative and we addressed this at great length. We discussed how it is important for him to engage with people, communicate, talk, keep up with the news amongst other things and I gave him a fairly lengthy explanation of the reasons for this and how it helps cognition and mood symptoms, amongst other things. He seemed to comprehend this, and at the end of the visit, he spontaneously asked me to take him to the television [id number], so that he could catch up on the news, which was quite positive. His family did visit him on Sunday07/06/2018, and reportedly, the visit went well, and I will discuss with Beatrice, social service staff on 07/08/2018 about the interpretation of the visit and plans for disposition. REVIEW OF SYSTEMS: No CV, , pulmonary, eye, ENT system symptoms on review. MENTAL STATUS EXAM: Oriented to himself and situation. Speech has some latency, often responses monosyllabic. Abstraction fair, computation impaired, language function intact, attention span short. Mood and affect remain somewhat withdrawn, but showing improvement. LABORATORY DATA: Reviewed. 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 Rest unchanged. PLAN: Continue psychotropics from initial note, Exelon patch, Zoloft, trazodone at night, Remeron 15 mg at bedtime. Zoloft was recently increased, may need to increase further in a day or two. MAN Delilah PRADHAN MD DR: SINDI/kaden JOB#: [id number] / [id number]
--- NOTE | 2018-07-08 22:31 | PN ---
DATE: 07/06/2018 This is a late entry for 07/06/2018 covers elements not covered in my initial note. SUBJECTIVE: I met with the patient in the evening. The patient slept 5-1/2 hours previous night. I met with him in his room. He is compliant with medications. Family visited and we will await their feedback on what decision they make about transitioning to a lower level of care or back home depending on the visit. REVIEW OF SYSTEMS: No CV, , pulmonary, eye, ENT system symptoms on review. MENTAL STATUS EXAM: Oriented to himself and situation. Speech has some latency, low in volume. Abstraction fair, computation impaired, language function intact, attention span short. Mood and affect somewhat withdrawn, but improved. LABORATORY DATA: Reviewed. IMPRESSION: Major neurocognitive disorder secondary to alcohol, Alzheimer's with delusion, depression; anxiety disorder, unspecified. Rest unchanged. PLAN: No change from initial note. CORA PRADHAN MD DR: SINDI/kaden JOB#: [id number] / [id number]
--- NOTE | 2018-07-08 22:55 | PDOC ---
Exam Note: Gadiel Note: Please also refer to the separate dictated note~for this date of service dictated separately.~Patient seen individually. Discussed the patient with Nursing staff reviewed the chart.~Reviewed interim history and current functioning. Reviewed vital signs,~Labs/ Radiology~and current medications noted below. Continue current treatment with the changes noted in the dictated addendum note Assessment: Vital Signs: Vital Signs Date Time Temp Pulse Resp B/P (MAP) Pulse Ox O2 Delivery O2 Flow Rate FiO2 07/08/18 15:44 98.6 69 18 131/78 (95) 98 07/05/18 16:51 Room Air I&O Intake and Output 07/08/18 07:01 Intake Total 1200 ml Balance 1200 ml Intake Oral 1200 ml # Voids 1 Current Medications: Meds: Current Medications Acetaminophen (Tylenol) 650 mg PRN Q6HRS PRN PO PAIN / TEMP Last administered on 06/30/18at 05:35; Start 06/26/18 at 16:45 Multi-Ingredient Ointment (Analgesic [place]) 1 tarik PRN QID PRN TP MUSCLE PAIN; Start 06/26/18 at 16:45 Al Hydroxide/Mg Hydroxide (Mylanta Plus Xs) 15 ml PRN AFTMEALHC PRN PO DYSPEPSIA; Start 06/26/18 at 16:45 Magnesium Hydroxide (Milk Of Magnesia) 2,400 mg PRN QHS PRN PO CONSTIPATION; Start 06/26/18 at 16:45 Phenazopyridine HCl (Pyridium) 100 mg PRN Q8HRS PRN PO URINARY DISCOMFORT; Start 06/26/18 at 18:15 Olanzapine (ZyPREXA ZYDIS) 2.5 mg PRN Q2HR PRN PO psychosis/agitation Last administered on 06/27/18at 23:36; Start 06/26/18 at 18:30 Rivastigmine (Exelon) 1 patch DAILY TD Last administered on 07/05/18at 08:35; Start 06/28/18 at 09:00; Stop 07/05/18 at 11:00; Status DC Rivastigmine (Exelon) 1 patch DAILY TD ; Start 07/06/18 at 09:00; Stop 07/06/18 at 09:00; Status DC Sertraline HCl (Zoloft) 25 mg DAILY PO Last administered on 07/02/18at 09:00; Start 06/28/18 at 09:00; Stop 07/02/18 at 16:42; Status DC Trazodone HCl (Desyrel) 50 mg QHS PO Last administered on 07/08/18 19:35; Start 06/28/18 at 21:00 Trazodone HCl (Desyrel) 50 mg PRN QHS PRN PO INSOMNIA; Start 06/28/18 at 04:30 Vitamin D (Vitamin D3) 50,000 unit WEEKLY PO Last administered on 07/06/18at 08: 51; Start 06/29/18 at 16:15 Cyanocobalamin (Vitamin B-12) 1,000 mcg DAILY IM Last administered on 07:58; Start 06/30/18 at 09:00 Mirtazapine (Remeron) 7.5 mg QHS PO Last administered on 07/02/18at 20:49; Start 06/29/18 at 21:00; Stop 07/03/18 at 16:57; Status DC Sertraline HCl (Zoloft) 50 mg DAILY PO Last administered on 07/05/18 08:34; Start 07/03/18 at 09:00; Stop 07/05/18 at 16:43; Status DC Rivastigmine (Exelon) 1 patch DAILY TD Last administered on 07/08/18 07:58; Start 07/03/18 at 09:00 Mirtazapine (Remeron) 15 mg QHS PO Last administered on 07/08/18 19:35; Start 07/03/18 at 21:00 Sertraline HCl (Zoloft) 75 mg DAILY PO Last administered on 07/08/18 07:58; Start 07/06/18 at 09:00 Active Scripts Active Reported Compazine (Prochlorperazine Maleate) 5 Mg Tablet 5 Mg IVP PRN Q4HRS PRN Phenazopyridine Hcl 100 Mg Tablet 100 Mg PO PRN Q8HRS PRN Ondansetron Hcl 4 Mg/2 Ml Vial (Ondansetron Hcl/Pf) 4 Mg/2 Ml Vial 4 Mg IVP PRN Q6HRS PRN I have reviewed the current psychotropics carefully including drug interactions. Risk benefit ratio favors no change other than as noted in my dictated progress note. Diagnosis: Problems: (1) Unspecified psychosis (2) Anxiety disorder (3) Dementia, vascular, with delusions (4) Dementia, vascular, with depression (5) Dementia in Alzheimer's disease with delusions (6) Dementia in Alzheimer's disease with depression (7) Impulse control disorder (8) Psychosis, atypical CORA PRADHAN MD Jul 08, 2018 22:55
[2018-07-09 06:34] VITALS: BP 146/82
[2018-07-09] MEDS: SERTRALINE 25 MG TABLET. PO SCH (07:40)
[2018-07-09] MEDS: CYANOCOBALAMIN (VITAMIN B-12) 1,000 MCG/ML VIAL IM SCH ×2 (07:40→09:00)
[2018-07-09] MEDS: RIVASTIGMINE 9.5MG PATCH. TD SCH (07:40)
[2018-07-09 16:14] VITALS: BP 128/83
[2018-07-09] MEDS: traZODone 50 MG TABLET. PO SCH (19:37)
[2018-07-09] MEDS: MIRTAZAPINE 15 MG TABLET PO SCH (19:37)
--- NOTE | 2018-07-09 22:46 | PDOC ---
Exam Note: Gadiel Note: Please also refer to the separate dictated note~for this date of service dictated separately.~Patient seen individually. Discussed the patient with Nursing staff reviewed the chart.~Reviewed interim history and current functioning. Reviewed vital signs,~Labs/ Radiology~and current medications noted below. Continue current treatment with the changes noted in the dictated addendum note Assessment: Vital Signs: Vital Signs Date Time Temp Pulse Resp B/P (MAP) Pulse Ox O2 Delivery O2 Flow Rate FiO2 07/09/18 16:14 97.4 76 16 128/83 (98) 95 Room Air I&O Intake and Output 07/09/18 07:01 Intake Total 560 ml Balance 560 ml Intake Oral 560 ml Current Medications: Meds: Current Medications Acetaminophen (Tylenol) 650 mg PRN Q6HRS PRN PO PAIN / TEMP Last administered on 06/30/18at 05:35; Start 06/26/18 at 16:45 Multi-Ingredient Ointment (Analgesic [place]) 1 tarik PRN QID PRN TP MUSCLE PAIN; Start 06/26/18 at 16:45 Al Hydroxide/Mg Hydroxide (Mylanta Plus Xs) 15 ml PRN AFTMEALHC PRN PO DYSPEPSIA; Start 06/26/18 at 16:45 Magnesium Hydroxide (Milk Of Magnesia) 2,400 mg PRN QHS PRN PO CONSTIPATION; Start 06/26/18 at 16:45 Phenazopyridine HCl (Pyridium) 100 mg PRN Q8HRS PRN PO URINARY DISCOMFORT; Start 06/26/18 at 18:15 Olanzapine (ZyPREXA ZYDIS) 2.5 mg PRN Q2HR PRN PO psychosis/agitation Last administered on 06/27/18at 23:36; Start 06/26/18 at 18:30 Rivastigmine (Exelon) 1 patch DAILY TD Last administered on 07/05/18at 08:35; Start 06/28/18 at 09:00; Stop 07/05/18 at 11:00; Status DC Rivastigmine (Exelon) 1 patch DAILY TD ; Start 07/06/18 at 09:00; Stop 07/06/18 at 09:00; Status DC Sertraline HCl (Zoloft) 25 mg DAILY PO Last administered on 07/02/18at 09:00; Start 06/28/18 at 09:00; Stop 07/02/18 at 16:42; Status DC Trazodone HCl (Desyrel) 50 mg QHS PO Last administered on 07/09/18at 19:37; Start 06/28/18 at 21:00 Trazodone HCl (Desyrel) 50 mg PRN QHS PRN PO INSOMNIA; Start 06/28/18 at 04:30 Vitamin D (Vitamin D3) 50,000 unit WEEKLY PO Last administered on 07/06/18at 08: 51; Start 06/29/18 at 16:15 Cyanocobalamin (Vitamin B-12) 1,000 mcg DAILY IM Last administered on at 07:58; Start 06/30/18 at 09:00; Stop 07/09/18 at 17:55; Status DC Mirtazapine (Remeron) 7.5 mg QHS PO Last administered on 07/02/18at 20:49; Start 06/29/18 at 21:00; Stop 07/03/18 at 16:57; Status DC Sertraline HCl (Zoloft) 50 mg DAILY PO Last administered on 07/05/18at 08:34; Start 07/03/18 at 09:00; Stop 07/05/18 at 16:43; Status DC Rivastigmine (Exelon) 1 patch DAILY TD Last administered on 07/09/18at 07:40; Start 07/03/18 at 09:00 Mirtazapine (Remeron) 15 mg QHS PO Last administered on 07/09/18at 19:37; Start 07/03/18 at 21:00 Sertraline HCl (Zoloft) 75 mg DAILY PO Last administered on 07/09/18at 07:40; Start 07/06/18 at 09:00 Cyanocobalamin (Vitamin B-12) 1,000 mcg QMONTH IM ; Start 08/08/18 at 09:00 Active Scripts Active Reported Compazine (Prochlorperazine Maleate) 5 Mg Tablet 5 Mg IVP PRN Q4HRS PRN Phenazopyridine Hcl 100 Mg Tablet 100 Mg PO PRN Q8HRS PRN Ondansetron Hcl 4 Mg/2 Ml Vial (Ondansetron Hcl/Pf) 4 Mg/2 Ml Vial 4 Mg IVP PRN Q6HRS PRN I have reviewed the current psychotropics carefully including drug interactions. Risk benefit ratio favors no change other than as noted in my dictated progress note. Diagnosis: Problems: (1) Unspecified psychosis (2) Anxiety disorder (3) Dementia, vascular, with delusions (4) Dementia, vascular, with depression (5) Dementia in Alzheimer's disease with delusions (6) Dementia in Alzheimer's disease with depression (7) Impulse control disorder (8) Psychosis, atypical CORA PRADHAN MD Jul 09, 2018 22:46
--- NOTE | 2018-07-10 01:01 | PN ---
DATE: 07/08/2018 PSYCHIATRIC PROGRESS NOTE This late entry of 07/08/2018 covers elements not covered in my initial note. SUBJECTIVE: I met with the patient in his room. The patient slept 7-1/4 hours previous night. He has been trying to make calls to his , wanting to pay his bills. He spends much time in his room and I encouraged him to come out. REVIEW OF SYSTEMS: No CV, , pulmonary, eye, ENT system symptoms on review. Reliability poor. MENTAL STATUS EXAM: Oriented to himself and situation. Speech moderate latency, often responses monosyllabic. Abstraction fair, computation impaired, language function intact, attention span short. Mood and affect remain somewhat withdrawn, but less paranoid, less psychotic. LABORATORY DATA: Reviewed. IMPRESSION: Unchanged from initial note. PLAN: No change from initial note. MAN Delilah PRADHAN MD DR: SINDI/kaden JOB#: [id number] / [id number]
[2018-07-10 06:00] VITALS: BP 142/67
[2018-07-10] MEDS: SERTRALINE 25 MG TABLET. PO SCH (08:10)
[2018-07-10] MEDS: RIVASTIGMINE 9.5MG PATCH. TD SCH (08:10)
[2018-07-10 16:35] VITALS: BP 138/84
[2018-07-10] MEDS: MIRTAZAPINE 15 MG TABLET PO SCH (20:52)
[2018-07-10] MEDS: traZODone 50 MG TABLET. PO SCH (20:53)
--- NOTE | 2018-07-10 22:43 | PDOC ---
Exam Note: Gadiel Note: Please also refer to the separate dictated note~for this date of service dictated separately.~Patient seen individually. Discussed the patient with Nursing staff reviewed the chart.~Reviewed interim history and current functioning. Reviewed vital signs,~Labs/ Radiology~and current medications noted below. Continue current treatment with the changes noted in the dictated addendum note Assessment: Vital Signs: Vital Signs Date Time Temp Pulse Resp B/P (MAP) Pulse Ox O2 Delivery O2 Flow Rate FiO2 07/10/18 16:35 97.3 69 18 138/84 (102) 100 07/09/18 16:14 Room Air I&O Intake and Output 07/10/18 07:01 Intake Total 840 ml Balance 840 ml Intake Oral 840 ml Current Medications: Meds: Current Medications Acetaminophen (Tylenol) 650 mg PRN Q6HRS PRN PO PAIN / TEMP Last administered on 06/30/18at 05:35; Start 06/26/18 at 16:45 Multi-Ingredient Ointment (Analgesic [place]) 1 tarik PRN QID PRN TP MUSCLE PAIN; Start 06/26/18 at 16:45 Al Hydroxide/Mg Hydroxide (Mylanta Plus Xs) 15 ml PRN AFTMEALHC PRN PO DYSPEPSIA; Start 06/26/18 at 16:45 Magnesium Hydroxide (Milk Of Magnesia) 2,400 mg PRN QHS PRN PO CONSTIPATION; Start 06/26/18 at 16:45 Phenazopyridine HCl (Pyridium) 100 mg PRN Q8HRS PRN PO URINARY DISCOMFORT; Start 06/26/18 at 18:15 Olanzapine (ZyPREXA ZYDIS) 2.5 mg PRN Q2HR PRN PO psychosis/agitation Last administered on 06/27/18at 23:36; Start 06/26/18 at 18:30 Rivastigmine (Exelon) 1 patch DAILY TD Last administered on 07/05/18at 08:35; Start 06/28/18 at 09:00; Stop 07/05/18 at 11:00; Status DC Rivastigmine (Exelon) 1 patch DAILY TD ; Start 07/06/18 at 09:00; Stop 07/06/18 at 09:00; Status DC Sertraline HCl (Zoloft) 25 mg DAILY PO Last administered on 07/02/18at 09:00; Start 06/28/18 at 09:00; Stop 07/02/18 at 16:42; Status DC Trazodone HCl (Desyrel) 50 mg QHS PO Last administered on 07/10/18 20:53; Start 06/28/18 at 21:00 Trazodone HCl (Desyrel) 50 mg PRN QHS PRN PO INSOMNIA; Start 06/28/18 at 04:30 Vitamin D (Vitamin D3) 50,000 unit WEEKLY PO Last administered on 07/06/18at 08: 51; Start 06/29/18 at 16:15 Cyanocobalamin (Vitamin B-12) 1,000 mcg DAILY IM Last administered on 07:58; Start 06/30/18 at 09:00; Stop 07/09/18 at 17:55; Status DC Mirtazapine (Remeron) 7.5 mg QHS PO Last administered on 07/02/18 20:49; Start 06/29/18 at 21:00; Stop 07/03/18 at 16:57; Status DC Sertraline HCl (Zoloft) 50 mg DAILY PO Last administered on 07/05/18at 08:34; Start 07/03/18 at 09:00; Stop 07/05/18 at 16:43; Status DC Rivastigmine (Exelon) 1 patch DAILY TD Last administered on 07/10/18 08:10; Start 07/03/18 at 09:00 Mirtazapine (Remeron) 15 mg QHS PO Last administered on 07/10/18 20:52; Start 07/03/18 at 21:00 Sertraline HCl (Zoloft) 75 mg DAILY PO Last administered on 07/10/18 08:10; Start 07/06/18 at 09:00 Cyanocobalamin (Vitamin B-12) 1,000 mcg QMONTH IM ; Start 08/08/18 at 09:00 Active Scripts Active Reported Compazine (Prochlorperazine Maleate) 5 Mg Tablet 5 Mg IVP PRN Q4HRS PRN Phenazopyridine Hcl 100 Mg Tablet 100 Mg PO PRN Q8HRS PRN Ondansetron Hcl 4 Mg/2 Ml Vial (Ondansetron Hcl/Pf) 4 Mg/2 Ml Vial 4 Mg IVP PRN Q6HRS PRN I have reviewed the current psychotropics carefully including drug interactions. Risk benefit ratio favors no change other than as noted in my dictated progress note. Diagnosis: Problems: (1) Unspecified psychosis (2) Anxiety disorder (3) Dementia, vascular, with delusions (4) Dementia, vascular, with depression (5) Dementia in Alzheimer's disease with delusions (6) Dementia in Alzheimer's disease with depression (7) Impulse control disorder (8) Psychosis, atypical CORA PRADHAN MD Jul 10, 2018 22:43
--- NOTE | 2018-07-11 03:11 | PN ---
DATE: 07/09/2018 This is a late entry for 07/09/2018 covers elements not covered in my initial note. SUBJECTIVE: I met with the patient in the evening. The patient slept 7-3/4 hours previous night. He has been resistive to medications, especially in the morning including Zoloft. The Adult Protective Services visited him the day before. He was a little paranoid about this. Slept 7-3/4 hours, refused trazodone and Remeron previous night and I addressed this with him at length individually importance of medication compliance. REVIEW OF SYSTEMS: No CV, , pulmonary, eye, ENT system symptoms on review. MENTAL STATUS EXAM: Oriented to himself and situation. Speech has some latency, often responses monosyllabic. Abstraction fair, computation impaired, language function intact, attention span short. Mood and affect somewhat withdrawn. LABORATORY DATA: Reviewed. IMPRESSION: Major neurocognitive disorder, Alzheimer, vascular with delusion, depression, cognitive disorder, unspecified. Rest unchanged. PLAN: Continue psychotropics from initial note. Adjust as clinically indicated. MAN Delilah PRADHAN MD DR: SINDI/kaden JOB#: [id number] / [id number]
[2018-07-11 04:45] LABS: BASO % 1 % (0-3); EOS # 0.2 x10^3/uL (0.0-0.7); EOS % 3 % (0-3); HEMATOCRIT 42.6 % (39.0-53.0); LYMPH # 0.7 x10^3/uL (1.0-4.8); LYMPH % 12 % (24-48); MEAN CORPUSCULAR HEMOGLOBIN 32 pg (25-35); MEAN CORPUSCULAR HGB CONC 33 g/dL (31-37); MEAN CORPUSCULAR VOLUME 97 fL (79-100); MONO # 0.9 x10^3/uL (0.0-1.1); MONO % 14 % (0-9); NEUT # 4.3 x10^3uL (1.8-7.7); NEUT % 70 % (31-73); PLATELET COUNT 214 x10^3/uL (140-400); RED BLOOD COUNT 4.38 x10^6/uL (4.30-5.70); RED CELL DISTRIBUTION WIDTH 15.7 % (11.5-14.5); WHITE BLOOD COUNT 6.1 x10^3/uL (4.0-11.0)
[2018-07-11 05:06] LABS: CALCIUM 9.6 mg/dL (8.5-10.1); CREATININE 1.1 mg/dL (0.7-1.3); GFR 66.2; POTASSIUM 4.1 mmol/L (3.5-5.1); TOTAL BILIRUBIN 0.6 mg/dL (0.2-1.0); TOTAL PROTEIN 8.2 g/dL (6.4-8.2)
--- NOTE | 2018-07-11 05:57 | RAD ---
CT head without contrast PQRS statement: CT scans at this facility use dose reduction including either automated exposure control, iterative reconstructions, and /or weight based radiation dosing via mA and kV modification when appropriate to reduce radiation dose to as low as reasonably achievable. HISTORY: Mental status change. TECHNIQUE: Axial noncontrast CT imaging skull base to vertex was acquired. FINDINGS: No intracranial hemorrhage, mass, obstructive hydrocephalus, extra-axial fluid collections or infarction. There is mild ventriculomegaly could be indicative of normal pressure hydrocephalus are mild enlargement from generalized brain atrophy. No acute ischemic change. Chronic right medial orbital wall mild blowout fracture. Orbits, paranasal sinuses, mastoids and bones are unremarkable. IMPRESSION: No acute intracranial CT abnormality. Electronically signed by: Fracisco Jiménez MD (07/11/2018 5:52 AM) [id number]
[2018-07-11 06:55] VITALS: BP 110/80
[2018-07-11 10:58] LABS: BACTERIA,URINE FEW /HPF (0-FEW); BILIRUBIN,URINE NEG (NEG); CLARITY,URINE HAZY; COLOR,URINE AMBER; GLUCOSE,URINE NEG (NEG); HYALINE CASTS, URINE OCC /HPF; NITRITE,URINE NEG (NEG); RBC,URINE OCC /HPF (0-2); SQUAMOUS EPITHELIAL CELL,UR OCC /LPF; UROBILINOGEN,URINE 0.2 mg/dL (0.2 mg/dL)
[2018-07-11] MEDS: SERTRALINE 25 MG TABLET. PO SCH (11:16)
[2018-07-11] MEDS: RIVASTIGMINE 9.5MG PATCH. TD SCH (11:16)
[2018-07-11 16:22] VITALS: BP 107/50
[2018-07-11] MEDS: MIRTAZAPINE 15 MG TABLET PO SCH (20:55)
[2018-07-11] MEDS: traZODone 50 MG TABLET. PO SCH (20:55)
--- NOTE | 2018-07-11 22:36 | PDOC ---
Exam Note: Gadiel Note: Please also refer to the separate dictated note~for this date of service dictated separately.~Patient seen individually. Discussed the patient with Nursing staff reviewed the chart.~Reviewed interim history and current functioning. Reviewed vital signs,~Labs/ Radiology~and current medications noted below. Continue current treatment with the changes noted in the dictated addendum note Assessment: Vital Signs: Vital Signs Date Time Temp Pulse Resp B/P (MAP) Pulse Ox O2 Delivery O2 Flow Rate FiO2 07/11/18 16:22 97.5 79 18 107/50 (69) 94 07/09/18 16:14 Room Air I&O Intake and Output 07/11/18 07:01 Intake Total 120 ml Balance 120 ml Intake Oral 120 ml Labs: Laboratory Tests Test 07/11/18 04:30 07/11/18 07:59 07/11/18 10:38 White Blood Count 6.1 x10^3/uL (4.0-11.0) Red Blood Count 4.38 x10^6/uL (4.30-5.70) Hemoglobin 14.0 g/dL (13.0-17.5) Hematocrit 42.6 % (39.0-53.0) Mean Corpuscular Volume 97 fL (79-100) Mean Corpuscular Hemoglobin 32 pg (25-35) Mean Corpuscular Hemoglobin Concent 33 g/dL (31-37) Red Cell Distribution Width 15.7 % (11.5-14.5) H Platelet Count 214 x10^3/uL (140-400) Neutrophils (%) (Auto) 70 % (31-73) Lymphocytes (%) (Auto) 12 % (24-48) L Monocytes (%) (Auto) 14 % (0-9) H Eosinophils (%) (Auto) 3 % (0-3) Basophils (%) (Auto) 1 % (0-3) Neutrophils # (Auto) 4.3 x10^3uL (1.8-7.7) Lymphocytes # (Auto) 0.7 x10^3/uL (1.0-4.8) L Monocytes # (Auto) 0.9 x10^3/uL (0.0-1.1) Eosinophils # (Auto) 0.2 x10^3/uL (0.0-0.7) Basophils # (Auto) 0.0 x10^3/uL (0.0-0.2) Sodium Level 145 mmol/L (136-145) Potassium Level 4.1 mmol/L (3.5-5.1) Chloride Level 105 mmol/L (98-107) Carbon Dioxide Level 31 mmol/L (21-32) Anion Gap 9 (6-14) Blood Urea Nitrogen 30 mg/dL (8-26) H Creatinine 1.1 mg/dL (0.7-1.3) Estimated GFR (Cockcroft-Gault) 66.2 BUN/Creatinine Ratio 27 (6-20) H Glucose Level 89 mg/dL (70-99) Calcium Level 9.6 mg/dL (8.5-10.1) Total Bilirubin 0.6 mg/dL (0.2-1.0) Aspartate Amino Transferase (AST) 21 U/L (15-37) Alanine Aminotransferase (ALT) 18 U/L (16-63) Alkaline Phosphatase 101 U/L (46-116) Creatine Kinase 82 U/L (39-308) Troponin I Quantitative < 0.017 ng/mL (0-0.055) Total Protein 8.2 g/dL (6.4-8.2) Albumin 4.0 g/dL (3.4-5.0) Albumin/Globulin Ratio 1.0 (1.0-1.7) Glucose (Fingerstick) 55 mg/dL (70-99) L Urine Collection Type Unknown Urine Color Ele Urine Clarity Hazy Urine pH 5.5 Urine Specific [place] >=1.030 Urine Protein Neg (NEG-TRACE) Urine Glucose (UA) Neg mg/dL (NEG) Urine Ketones (Stick) 15 mg/dL (NEG) Urine Blood Neg (NEG) Urine Nitrite Neg (NEG) Urine Bilirubin Neg (NEG) Urine Urobilinogen Dipstick 0.2 mg/dL (0.2 mg/dL) Urine Leukocyte Esterase Neg (NEG) Urine RBC Occ /HPF (0-2) Urine WBC 1-4 /HPF (0-4) Urine Squamous Epithelial Cells Occ /LPF Urine Bacteria Few /HPF (0-FEW) Urine Hyaline Casts Occ /HPF Urine Mucus Mod /LPF Current Medications: Meds: Current Medications Acetaminophen (Tylenol) 650 mg PRN Q6HRS PRN PO PAIN / TEMP Last administered on 06/30/18at 05:35; Start 06/26/18 at 16:45 Multi-Ingredient Ointment (Analgesic [place]) 1 tarik PRN QID PRN TP MUSCLE PAIN; Start 06/26/18 at 16:45 Al Hydroxide/Mg Hydroxide (Mylanta Plus Xs) 15 ml PRN AFTMEALHC PRN PO DYSPEPSIA; Start 06/26/18 at 16:45 Magnesium Hydroxide (Milk Of Magnesia) 2,400 mg PRN QHS PRN PO CONSTIPATION; Start 06/26/18 at 16:45 Phenazopyridine HCl (Pyridium) 100 mg PRN Q8HRS PRN PO URINARY DISCOMFORT; Start 06/26/18 at 18:15 Olanzapine (ZyPREXA ZYDIS) 2.5 mg PRN Q2HR PRN PO psychosis/agitation Last administered on 07/11/18at 05:00; Start 06/26/18 at 18:30 Rivastigmine (Exelon) 1 patch DAILY TD Last administered on 07/05/18at 08:35; Start 06/28/18 at 09:00; Stop 07/05/18 at 11:00; Status DC Rivastigmine (Exelon) 1 patch DAILY TD ; Start 07/06/18 at 09:00; Stop 07/06/18 at 09:00; Status DC Sertraline HCl (Zoloft) 25 mg DAILY PO Last administered on 07/02/18at 09:00; Start 06/28/18 at 09:00; Stop 07/02/18 at 16:42; Status DC Trazodone HCl (Desyrel) 50 mg QHS PO Last administered on 07/11/18at 20:55; Start 06/28/18 at 21:00 Trazodone HCl (Desyrel) 50 mg PRN QHS PRN PO INSOMNIA; Start 06/28/18 at 04:30 Vitamin D (Vitamin D3) 50,000 unit WEEKLY PO Last administered on 07/06/18at 08: 51; Start 06/29/18 at 16:15 Cyanocobalamin (Vitamin B-12) 1,000 mcg DAILY IM Last administered on at 07:58; Start 06/30/18 at 09:00; Stop 07/09/18 at 17:55; Status DC Mirtazapine (Remeron) 7.5 mg QHS PO Last administered on 07/02/18at 20:49; Start 06/29/18 at 21:00; Stop 07/03/18 at 16:57; Status DC Sertraline HCl (Zoloft) 50 mg DAILY PO Last administered on 07/05/18at 08:34; Start 07/03/18 at 09:00; Stop 07/05/18 at 16:43; Status DC Rivastigmine (Exelon) 1 patch DAILY TD Last administered on 07/10/18at 08:10; Start 07/03/18 at 09:00 Mirtazapine (Remeron) 15 mg QHS PO Last administered on 07/11/18at 20:55; Start 07/03/18 at 21:00 Sertraline HCl (Zoloft) 75 mg DAILY PO Last administered on 07/10/18at 08:10; Start 07/06/18 at 09:00 Cyanocobalamin (Vitamin B-12) 1,000 mcg QMONTH IM ; Start 08/08/18 at 09:00 Active Scripts Active Reported Compazine (Prochlorperazine Maleate) 5 Mg Tablet 5 Mg IVP PRN Q4HRS PRN Phenazopyridine Hcl 100 Mg Tablet 100 Mg PO PRN Q8HRS PRN Ondansetron Hcl 4 Mg/2 Ml Vial (Ondansetron Hcl/Pf) 4 Mg/2 Ml Vial 4 Mg IVP PRN Q6HRS PRN I have reviewed the current psychotropics carefully including drug interactions. Risk benefit ratio favors no change other than as noted in my dictated progress note. Diagnosis: Problems: (1) Unspecified psychosis (2) Anxiety disorder (3) Dementia, vascular, with delusions (4) Dementia, vascular, with depression (5) Dementia in Alzheimer's disease with delusions (6) Dementia in Alzheimer's disease with depression (7) Impulse control disorder (8) Psychosis, atypical CORA PRADHAN MD Jul 11, 2018 22:36
[2018-07-12 06:29] VITALS: BP 105/68
[2018-07-12] MEDS: RIVASTIGMINE 9.5MG PATCH. TD SCH (07:57)
[2018-07-12] MEDS: SERTRALINE 25 MG TABLET. PO SCH (07:58)
[2018-07-12] MEDS ORDERED: KETOROLAC 30 MG/ML VIAL. ONE ×2 (13:13→13:15)
[2018-07-12] MEDS ORDERED: KETOROLAC 30 MG/ML VIAL. IM ONE (13:15)
[2018-07-12] MEDS ORDERED: KETOROLAC 60 MG/2 ML VIAL. IM ONE (13:30)
[2018-07-12 14:00] VITALS: BP 105/69
[2018-07-12 14:04] LABS: BASO % 1 % (0-3); EOS # 0.1 x10^3/uL (0.0-0.7); EOS % 2 % (0-3); HEMATOCRIT 39.7 % (39.0-53.0); HEMOGLOBIN 13.2 g/dL (13.0-17.5); LYMPH # 0.7 x10^3/uL (1.0-4.8); LYMPH % 11 % (24-48); MEAN CORPUSCULAR HEMOGLOBIN 32 pg (25-35); MEAN CORPUSCULAR HGB CONC 33 g/dL (31-37); MEAN CORPUSCULAR VOLUME 95 fL (79-100); MONO # 0.7 x10^3/uL (0.0-1.1); MONO % 10 % (0-9); NEUT # 4.8 x10^3uL (1.8-7.7); NEUT % 76 % (31-73); PLATELET COUNT 183 x10^3/uL (140-400); RED BLOOD COUNT 4.17 x10^6/uL (4.30-5.70); RED CELL DISTRIBUTION WIDTH 15.7 % (11.5-14.5); WHITE BLOOD COUNT 6.4 x10^3/uL (4.0-11.0)
[2018-07-12] MEDS ORDERED: IOHEXOL 300 MG/ML 75 ML VIAL. IV ONE (14:15)
[2018-07-12 14:18] LABS: ALBUMIN 3.6 g/dL (3.4-5.0); TOTAL PROTEIN 7.6 g/dL (6.4-8.2)
[2018-07-12 14:19] LABS: ALBUMIN/GLOBULIN RATIO 0.9 (1.0-1.7); CALCIUM 8.9 mg/dL (8.5-10.1); CREATININE 0.8 mg/dL (0.7-1.3); GFR 95.6; POTASSIUM 4.2 mmol/L (3.5-5.1); TOTAL BILIRUBIN 0.4 mg/dL (0.2-1.0)
--- NOTE | 2018-07-12 15:24 | RAD ---
PQRS Compliance Statement: One or more of the following individualized dose reduction techniques were utilized for this examination: 1. Automated exposure control 2. Adjustment of the mA and/or kV according to patient size 3. Use of iterative reconstruction technique CT ABD PELV W/ IV CONTRST ONLY Clinical Indication: SEVERE ABDOMINAL PAIN. Comparison: None. Technique: Helical CT imaging of the abdomen and pelvis is performed after 75 cc of Omnipaque 300 IV contrast. Oral contrast not given. Findings: There are groundglass or reticular opacities in the bilateral lower lobes. There is bronchiectasis in the left lower lobe. There is air in the distal esophagus. No wall thickening. Coronary artery disease. Cardiac size normal. Liver, gallbladder, spleen, pancreas, adrenal glands, and kidneys are normal. 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 Mild atherosclerotic calcification of the abdominal aorta, no aneurysm. Stomach is not well distended, limiting evaluation. There is no dilated small bowel. There is a surgical anastomosis in the distal colon. The appendix is not identified, no secondary signs of appendicitis. No colon wall thickening is identified. No abdominal adenopathy or free fluid. Urinary bladder is normal. Prostate size normal. There is presacral edema, nonspecific. No acute bone abnormality. No pelvic free fluid. IMPRESSION: 1. No acute abdominal or pelvic abnormality. 2. Presacral edema, nonspecific. 3. Groundglass and reticular opacities in the bilateral lower lobes may be chronic. 4. Incidental duplicated infrarenal IVC. Electronically signed by: Joseph Gorman MD (07/12/2018 3:20 PM) [id number]
[2018-07-12] MEDS ORDERED: IV DEXTROSE 5% 1,000 ML IV ONE (16:00)
[2018-07-12 16:09] VITALS: BP 103/66
[2018-07-12] MEDS: traZODone 50 MG TABLET. PO SCH (20:17)
[2018-07-12] MEDS: MIRTAZAPINE 15 MG TABLET PO SCH (20:17)
[2018-07-12] MEDS ORDERED: QUEtiapine 25 MG TABLET. PO SCH (21:00)
--- NOTE | 2018-07-12 23:00 | PDOC ---
Exam Note: Gadiel Note: Please also refer to the separate dictated note~for this date of service dictated separately.~Patient seen individually. Discussed the patient with Nursing staff reviewed the chart.~Reviewed interim history and current functioning. Reviewed vital signs,~Labs/ Radiology~and current medications noted below. Continue current treatment with the changes noted in the dictated addendum note Assessment: Vital Signs: Vital Signs Date Time Temp Pulse Resp B/P (MAP) Pulse Ox O2 Delivery O2 Flow Rate FiO2 07/12/18 16:09 97.2 66 16 103/66 (78) 96 Room Air I&O Intake and Output 07/12/18 07:01 Intake Total 840 ml Output Total 150 ml Balance 690 ml Intake Oral 840 ml Output Urine Total 150 ml # Voids 1 Labs: Laboratory Tests Test 07/12/18 13:55 White Blood Count 6.4 x10^3/uL (4.0-11.0) Red Blood Count 4.17 x10^6/uL (4.30-5.70) L Hemoglobin 13.2 g/dL (13.0-17.5) Hematocrit 39.7 % (39.0-53.0) Mean Corpuscular Volume 95 fL (79-100) Mean Corpuscular Hemoglobin 32 pg (25-35) Mean Corpuscular Hemoglobin Concent 33 g/dL (31-37) Red Cell Distribution Width 15.7 % (11.5-14.5) H Platelet Count 183 x10^3/uL (140-400) Neutrophils (%) (Auto) 76 % (31-73) H Lymphocytes (%) (Auto) 11 % (24-48) L Monocytes (%) (Auto) 10 % (0-9) H Eosinophils (%) (Auto) 2 % (0-3) Basophils (%) (Auto) 1 % (0-3) Neutrophils # (Auto) 4.8 x10^3uL (1.8-7.7) Lymphocytes # (Auto) 0.7 x10^3/uL (1.0-4.8) L Monocytes # (Auto) 0.7 x10^3/uL (0.0-1.1) Eosinophils # (Auto) 0.1 x10^3/uL (0.0-0.7) Basophils # (Auto) 0.0 x10^3/uL (0.0-0.2) Sodium Level 148 mmol/L (136-145) H Potassium Level 4.2 mmol/L (3.5-5.1) Chloride Level 107 mmol/L (98-107) Carbon Dioxide Level 34 mmol/L (21-32) H Anion Gap 7 (6-14) Blood Urea Nitrogen 35 mg/dL (8-26) H Creatinine 0.8 mg/dL (0.7-1.3) Estimated GFR (Cockcroft-Gault) 95.6 BUN/Creatinine Ratio 44 (6-20) H Glucose Level 87 mg/dL (70-99) Lactic Acid Level 1.5 mmol/L (0.4-2.0) Calcium Level 8.9 mg/dL (8.5-10.1) Total Bilirubin 0.4 mg/dL (0.2-1.0) Aspartate Amino Transferase (AST) 29 U/L (15-37) Alanine Aminotransferase (ALT) 22 U/L (16-63) Alkaline Phosphatase 103 U/L (46-116) Lactate Dehydrogenase 223 U/L (85-227) Creatine Kinase 282 U/L (39-308) Troponin I Quantitative < 0.017 ng/mL (0-0.055) Total Protein 7.6 g/dL (6.4-8.2) Albumin 3.6 g/dL (3.4-5.0) Albumin/Globulin Ratio 0.9 (1.0-1.7) L Current Medications: Meds: Current Medications Acetaminophen (Tylenol) 650 mg PRN Q6HRS PRN PO PAIN / TEMP Last administered on 06/30/18at 05:35; Start 06/26/18 at 16:45 Multi-Ingredient Ointment (Analgesic [place]) 1 tarik PRN QID PRN TP MUSCLE PAIN; Start 06/26/18 at 16:45 Al Hydroxide/Mg Hydroxide (Mylanta Plus Xs) 15 ml PRN AFTMEALHC PRN PO DYSPEPSIA; Start 06/26/18 at 16:45 Magnesium Hydroxide (Milk Of Magnesia) 2,400 mg PRN QHS PRN PO CONSTIPATION; Start 06/26/18 at 16:45 Phenazopyridine HCl (Pyridium) 100 mg PRN Q8HRS PRN PO URINARY DISCOMFORT; Start 06/26/18 at 18:15 Olanzapine (ZyPREXA ZYDIS) 2.5 mg PRN Q2HR PRN PO psychosis/agitation Last administered on 07/12/18 20:24; Start 06/26/18 at 18:30 Rivastigmine (Exelon) 1 patch DAILY TD Last administered on 07/05/18at 08:35; Start 06/28/18 at 09:00; Stop 07/05/18 at 11:00; Status DC Rivastigmine (Exelon) 1 patch DAILY TD ; Start 07/06/18 at 09:00; Stop 07/06/18 at 09:00; Status DC Sertraline HCl (Zoloft) 25 mg DAILY PO Last administered on 07/02/18at 09:00; Start 06/28/18 at 09:00; Stop 07/02/18 at 16:42; Status DC Trazodone HCl (Desyrel) 50 mg QHS PO Last administered on 07/12/18at 20:17; Start 06/28/18 at 21:00 Trazodone HCl (Desyrel) 50 mg PRN QHS PRN PO INSOMNIA; Start 06/28/18 at 04:30 Vitamin D (Vitamin D3) 50,000 unit WEEKLY PO Last administered on 07/06/18at 08: 51; Start 06/29/18 at 16:15 Cyanocobalamin (Vitamin B-12) 1,000 mcg DAILY IM Last administered on at 07:58; Start 06/30/18 at 09:00; Stop 07/09/18 at 17:55; Status DC Mirtazapine (Remeron) 7.5 mg QHS PO Last administered on 07/02/18at 20:49; Start 06/29/18 at 21:00; Stop 07/03/18 at 16:57; Status DC Sertraline HCl (Zoloft) 50 mg DAILY PO Last administered on 07/05/18at 08:34; Start 07/03/18 at 09:00; Stop 07/05/18 at 16:43; Status DC Rivastigmine (Exelon) 1 patch DAILY TD Last administered on 07/12/18at 07:57; Start 07/03/18 at 09:00 Mirtazapine (Remeron) 15 mg QHS PO Last administered on 07/12/18at 20:17; Start 07/03/18 at 21:00 Sertraline HCl (Zoloft) 75 mg DAILY PO Last administered on 07/12/18at 07:58; Start 07/06/18 at 09:00; Stop 07/12/18 at 16:55; Status DC Cyanocobalamin (Vitamin B-12) 1,000 mcg QMONTH IM ; Start 08/08/18 at 09:00 Ketorolac Tromethamine (Toradol Im) 60 mg 1X ONCE IM ; Start 07/12/18 at 13:30; Stop 07/12/18 at 13:31; Status DC Ketorolac Tromethamine (Toradol 30mg Vial) 30 mg STK-MED ONCE .ROUTE ; Start 07/12/18 at 13:13; Stop 07/12/18 at 13:15; Status DC Ketorolac Tromethamine (Toradol 30mg Vial) 30 mg STK-MED ONCE .ROUTE Last administered on 07/12/18at 13:28; Start 07/12/18 at 13:15; Stop 07/12/18 at 13:17; Status DC Lorazepam (Ativan) 1 mg 1X ONCE IV Last administered on 07/12/18at 13:45; Start 07/12/18 at 13:45; Stop 07/12/18 at 13:46; Status DC Iohexol (Omnipaque 300 Mg/ml) 75 ml 1X ONCE IV Last administered on 07/12/18at 14:30; Start 07/12/18 at 14:15; Stop 07/12/18 at 14:16; Status DC Ketorolac Tromethamine (Toradol 30mg Vial) 30 mg 1X ONCE IM ; Start 07/12/18 at 13:15; Stop 07/12/18 at 14:25; Status DC Dextrose 1,000 ml @ 250 mls/hr 1X ONCE IV Last administered on 07/12/18at 16:19 ; Start 07/12/18 at 16:00; Stop 07/12/18 at 20:00; Status DC Fluoxetine HCl (PROzac) 10 mg DAILY PO ; Start 07/13/18 at 09:00 Quetiapine Fumarate (SEROquel) 25 mg HS PO Last administered on 07/12/18at 20:19 ; Start 07/12/18 at 21:00 Active Scripts Active Reported Compazine (Prochlorperazine Maleate) 5 Mg Tablet 5 Mg IVP PRN Q4HRS PRN Phenazopyridine Hcl 100 Mg Tablet 100 Mg PO PRN Q8HRS PRN Ondansetron Hcl 4 Mg/2 Ml Vial (Ondansetron Hcl/Pf) 4 Mg/2 Ml Vial 4 Mg IVP PRN Q6HRS PRN I have reviewed the current psychotropics carefully including drug interactions. Risk benefit ratio favors no change other than as noted in my dictated progress note. Diagnosis: Problems: (1) Unspecified psychosis (2) Anxiety disorder (3) Dementia, vascular, with delusions (4) Dementia, vascular, with depression (5) Dementia in Alzheimer's disease with delusions (6) Dementia in Alzheimer's disease with depression (7) Impulse control disorder (8) Psychosis, atypical CORA PRADHAN MD Jul 12, 2018 23:00
--- NOTE | 2018-07-13 04:36 | PN ---
DATE: 07/10/2018 This late entry for 07/10/2018 covers elements not covered in my initial note. SUBJECTIVE: I met with the patient in the evening. The patient slept 6-3/4 hours previous night. During the day, he has been more resistive to medications, was upset in the morning, went for a shower, refused breakfast, came out for lunch, resistive to taking the Zoloft as well. I met with him at some length in his room to process his depressive symptoms and resistance to treatment. REVIEW OF SYSTEMS: No CV, , pulmonary, eye system symptoms on review. MENTAL STATUS EXAM: Oriented to himself and situation. Speech is coherent, has some latency. Abstraction fair, computation impaired, language function intact, attention span short. Mood and affect remain somewhat anxious, labile. 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 The patient was acting fairly bizarre to touch, dropping himself on the ground. Nursing staff felt there was some medical reason for it. We consulted Dr. Avelar, Neurology, Dr. Ewing with Internal Medicine and the workup including CT head. Lab studies were unremarkable, noncontributory and UA was done as well including EKG and cardiac enzymes. MENTAL STATUS EXAM: Oriented to himself and situation. Speech has some latency, often responses monosyllabic. Abstraction fair, computation impaired, language function intact, attention span short. Mood and affect remain somewhat anxious, withdrawn at times. LABORATORY DATA: Reviewed. IMPRESSION: Major neurocognitive disorder, Alzheimer, vascular with delusion, depression, major depressive disorder with psychotic features. Rest unchanged. PLAN: No change from initial note. We will await the rest of the workup from Medicine, Neurology for further clarification of his symptoms. CORA PRADHAN MD DR: SINDI/kaden JOB#: [id number] / [id number]
--- NOTE | 2018-07-13 04:47 | PN ---
DATE: 07/10/2018 PSYCHIATRIC PROGRESS NOTE This late entry 07/10/2018 covers elements, not covered in my initial note. SUBJECTIVE: I met with the patient in the evening. INCOMPLETE DICTATION MAN Delilah PRADHAN MD DR: Katrina JOB#: [id number] / [id number]
--- NOTE | 2018-07-13 05:06 | PN ---
DATE: 07/11/2018 PSYCHIATRIC PROGRESS NOTE This is a late entry 07/11/2018 covers elements not covered in my initial note. SUBJECTIVE: I met with the patient in the evening at length and staffed at a treatment team meeting with the entire team in the morning. The patient's daughter, Nolvia was at the treatment team meeting. We reviewed the patient's history at length. I was called at 4:30 a.m. strategic marketing leader today. The patient was acting bizarre, dropping to the floor when he was touched, labile, anxious, psychotic, disorganized. Nursing staff felt there was something medical or neurological. We had a Neurology consult with Dr. Avelar and medical followup requested by Dr. Ewing, but workup so far including CT head, EKG, cardiac enzymes. Labs are unremarkable. UA is awaited. He has been better later in the day. REVIEW OF SYSTEMS: No CV, , pulmonary, eye system symptoms on review, but the time I met with him is in the evening. MENTAL STATUS EXAM: Oriented to himself and situation. Speech moderate latency, often responses monosyllabic. Abstraction fair, computation impaired, language function intact, attention span short. Mood and affect remain somewhat withdrawn, psychotic, paranoid. LABORATORY DATA: Reviewed. IMPRESSION: Major neurocognitive disorder, Alzheimer, vascular with delusion, depression, behavioral disturbance. Rest unchanged. PLAN: Workup as above, continue psychotropics from initial note. Consider adding an atypical antipsychotic if all workup comes back negative. CORA PRADHAN MD DR: SINDI/kaden JOB#: [id number] / [id number]
[2018-07-13 06:18] VITALS: BP 115/69
[2018-07-13] MEDS: FLUoxetine HCL 10 MG CAPSULE PO SCH (08:03)
[2018-07-13] MEDS: RIVASTIGMINE 9.5MG PATCH. TD SCH (08:03)
[2018-07-13] MEDS: CHOLECALCIFEROL (VITAMIN D3) 50,000 UNIT CAPSULE PO SCH (08:07)
[2018-07-13 09:45] LABS: BASO % 1 % (0-3); EOS # 0.1 x10^3/uL (0.0-0.7); EOS % 2 % (0-3); HEMATOCRIT 41.6 % (39.0-53.0); HEMOGLOBIN 13.8 g/dL (13.0-17.5); LYMPH # 0.4 x10^3/uL (1.0-4.8); LYMPH % 7 % (24-48); MEAN CORPUSCULAR HEMOGLOBIN 32 pg (25-35); MEAN CORPUSCULAR HGB CONC 33 g/dL (31-37); MEAN CORPUSCULAR VOLUME 96 fL (79-100); MONO # 0.6 x10^3/uL (0.0-1.1); MONO % 12 % (0-9); NEUT % 78 % (31-73); PLATELET COUNT 183 x10^3/uL (140-400); RED BLOOD COUNT 4.36 x10^6/uL (4.30-5.70); RED CELL DISTRIBUTION WIDTH 15.3 % (11.5-14.5); WHITE BLOOD COUNT 5.1 x10^3/uL (4.0-11.0)
[2018-07-13 09:53] LABS: ALBUMIN 3.5 g/dL (3.4-5.0); ALBUMIN/GLOBULIN RATIO 0.9 (1.0-1.7); CREATININE 0.9 mg/dL (0.7-1.3); GFR 83.4; POTASSIUM 3.5 mmol/L (3.5-5.1); TOTAL BILIRUBIN 0.6 mg/dL (0.2-1.0); TOTAL PROTEIN 7.4 g/dL (6.4-8.2)
[2018-07-13 16:05] VITALS: BP 102/66
[2018-07-13] MEDS ORDERED: risperiDONE 0.25 MG TABLET. PO ONE (20:30)
[2018-07-13] MEDS: traZODone 50 MG TABLET. PO SCH (20:49)
[2018-07-13] MEDS: MIRTAZAPINE 15 MG TABLET PO SCH (20:49)
--- NOTE | 2018-07-13 22:27 | PDOC ---
Exam Note: Gadiel Note: Please also refer to the separate dictated note~for this date of service dictated separately.~Patient seen individually. Discussed the patient with Nursing staff reviewed the chart.~Reviewed interim history and current functioning. Reviewed vital signs,~Labs/ Radiology~and current medications noted below. Continue current treatment with the changes noted in the dictated addendum note Assessment: Vital Signs: Vital Signs Date Time Temp Pulse Resp B/P (MAP) Pulse Ox O2 Delivery O2 Flow Rate FiO2 07/13/18 16:05 97.2 71 18 102/66 (78) 97 Room Air I&O Intake and Output 07/13/18 07:01 Intake Total 360 ml Balance 360 ml Intake Oral 360 ml Labs: Laboratory Tests Test 07/13/18 09:20 White Blood Count 5.1 x10^3/uL (4.0-11.0) Red Blood Count 4.36 x10^6/uL (4.30-5.70) Hemoglobin 13.8 g/dL (13.0-17.5) Hematocrit 41.6 % (39.0-53.0) Mean Corpuscular Volume 96 fL (79-100) Mean Corpuscular Hemoglobin 32 pg (25-35) Mean Corpuscular Hemoglobin Concent 33 g/dL (31-37) Red Cell Distribution Width 15.3 % (11.5-14.5) H Platelet Count 183 x10^3/uL (140-400) Neutrophils (%) (Auto) 78 % (31-73) H Lymphocytes (%) (Auto) 7 % (24-48) L Monocytes (%) (Auto) 12 % (0-9) H Eosinophils (%) (Auto) 2 % (0-3) Basophils (%) (Auto) 1 % (0-3) Neutrophils # (Auto) 4.0 x10^3uL (1.8-7.7) Lymphocytes # (Auto) 0.4 x10^3/uL (1.0-4.8) L Monocytes # (Auto) 0.6 x10^3/uL (0.0-1.1) Eosinophils # (Auto) 0.1 x10^3/uL (0.0-0.7) Basophils # (Auto) 0.0 x10^3/uL (0.0-0.2) Sodium Level 145 mmol/L (136-145) Potassium Level 3.5 mmol/L (3.5-5.1) Chloride Level 106 mmol/L (98-107) Carbon Dioxide Level 32 mmol/L (21-32) Anion Gap 7 (6-14) Blood Urea Nitrogen 32 mg/dL (8-26) H Creatinine 0.9 mg/dL (0.7-1.3) Estimated GFR (Cockcroft-Gault) 83.4 BUN/Creatinine Ratio 36 (6-20) H Glucose Level 114 mg/dL (70-99) H Calcium Level 9.0 mg/dL (8.5-10.1) Total Bilirubin 0.6 mg/dL (0.2-1.0) Aspartate Amino Transferase (AST) 41 U/L (15-37) H Alanine Aminotransferase (ALT) 25 U/L (16-63) Alkaline Phosphatase 101 U/L (46-116) Total Protein 7.4 g/dL (6.4-8.2) Albumin 3.5 g/dL (3.4-5.0) Albumin/Globulin Ratio 0.9 (1.0-1.7) L Current Medications: Meds: Current Medications Acetaminophen (Tylenol) 650 mg PRN Q6HRS PRN PO PAIN / TEMP Last administered on 06/30/18at 05:35; Start 06/26/18 at 16:45 Multi-Ingredient Ointment (Analgesic [facility]) 1 tarik PRN QID PRN TP MUSCLE PAIN; Start 06/26/18 at 16:45 Al Hydroxide/Mg Hydroxide (Mylanta Plus Xs) 15 ml PRN AFTMEALHC PRN PO DYSPEPSIA; Start 06/26/18 at 16:45 Magnesium Hydroxide (Milk Of Magnesia) 2,400 mg PRN QHS PRN PO CONSTIPATION; Start 06/26/18 at 16:45 Phenazopyridine HCl (Pyridium) 100 mg PRN Q8HRS PRN PO URINARY DISCOMFORT; Start 06/26/18 at 18:15 Olanzapine (ZyPREXA ZYDIS) 2.5 mg PRN Q2HR PRN PO psychosis/agitation Last administered on 07/12/18at 20:24; Start 06/26/18 at 18:30 Rivastigmine (Exelon) 1 patch DAILY TD Last administered on 07/05/18at 08:35; Start 06/28/18 at 09:00; Stop 07/05/18 at 11:00; Status DC Rivastigmine (Exelon) 1 patch DAILY TD ; Start 07/06/18 at 09:00; Stop 07/06/18 at 09:00; Status DC Sertraline HCl (Zoloft) 25 mg DAILY PO Last administered on 07/02/18at 09:00; Start 06/28/18 at 09:00; Stop 07/02/18 at 16:42; Status DC Trazodone HCl (Desyrel) 50 mg QHS PO Last administered on 07/13/18 20:49; Start 06/28/18 at 21:00 Trazodone HCl (Desyrel) 50 mg PRN QHS PRN PO INSOMNIA; Start 06/28/18 at 04:30 Vitamin D (Vitamin D3) 50,000 unit WEEKLY PO Last administered on 07/06/18at 08: 51; Start 06/29/18 at 16:15 Cyanocobalamin (Vitamin B-12) 1,000 mcg DAILY IM Last administered on at 07:58; Start 06/30/18 at 09:00; Stop 07/09/18 at 17:55; Status DC Mirtazapine (Remeron) 7.5 mg QHS PO Last administered on 07/02/18 20:49; Start 06/29/18 at 21:00; Stop 07/03/18 at 16:57; Status DC Sertraline HCl (Zoloft) 50 mg DAILY PO Last administered on 07/05/18 08:34; Start 07/03/18 at 09:00; Stop 07/05/18 at 16:43; Status DC Rivastigmine (Exelon) 1 patch DAILY TD Last administered on 07/13/18 08:03; Start 07/03/18 at 09:00 Mirtazapine (Remeron) 15 mg QHS PO Last administered on 07/13/18 20:49; Start 07/03/18 at 21:00 Sertraline HCl (Zoloft) 75 mg DAILY PO Last administered on 07/12/18 07:58; Start 07/06/18 at 09:00; Stop 07/12/18 at 16:55; Status DC Cyanocobalamin (Vitamin B-12) 1,000 mcg QMONTH IM ; Start 08/08/18 at 09:00 Ketorolac Tromethamine (Toradol Im) 60 mg 1X ONCE IM ; Start 07/12/18 at 13:30; Stop 07/12/18 at 13:31; Status DC Ketorolac Tromethamine (Toradol 30mg Vial) 30 mg STK-MED ONCE .ROUTE ; Start 07/12/18 at 13:13; Stop 07/12/18 at 13:15; Status DC Ketorolac Tromethamine (Toradol 30mg Vial) 30 mg STK-MED ONCE .ROUTE Last administered on 07/12/18at 13:28; Start 07/12/18 at 13:15; Stop 07/12/18 at 13:17; Status DC Lorazepam (Ativan) 1 mg 1X ONCE IV Last administered on 07/12/18at 13:45; Start 07/12/18 at 13:45; Stop 07/12/18 at 13:46; Status DC Iohexol (Omnipaque 300 Mg/ml) 75 ml 1X ONCE IV Last administered on 07/12/18at 14:30; Start 07/12/18 at 14:15; Stop 07/12/18 at 14:16; Status DC Ketorolac Tromethamine (Toradol 30mg Vial) 30 mg 1X ONCE IM ; Start 07/12/18 at 13:15; Stop 07/12/18 at 14:25; Status DC Dextrose 1,000 ml @ 250 mls/hr 1X ONCE IV Last administered on 07/12/18at 16:19 ; Start 07/12/18 at 16:00; Stop 07/12/18 at 20:00; Status DC Fluoxetine HCl (PROzac) 10 mg DAILY PO Last administered on 07/13/18at 08:03; Start 07/13/18 at 09:00 Quetiapine Fumarate (SEROquel) 25 mg HS PO Last administered on 07/12/18at 20:19 ; Start 07/12/18 at 21:00; Stop 07/13/18 at 20:31; Status DC Risperidone (RisperDAL) 0.25 mg 1X ONCE PO Last administered on 07/13/18at 20:49 ; Start 07/13/18 at 20:30; Stop 07/13/18 at 20:33; Status DC Risperidone (RisperDAL) 0.5 mg HS PO ; Start 07/14/18 at 21:00 Active Scripts Active Reported Compazine (Prochlorperazine Maleate) 5 Mg Tablet 5 Mg IVP PRN Q4HRS PRN Phenazopyridine Hcl 100 Mg Tablet 100 Mg PO PRN Q8HRS PRN Ondansetron Hcl 4 Mg/2 Ml Vial (Ondansetron Hcl/Pf) 4 Mg/2 Ml Vial 4 Mg IVP PRN Q6HRS PRN I have reviewed the current psychotropics carefully including drug interactions. Risk benefit ratio favors no change other than as noted in my dictated progress note. Diagnosis: Problems: (1) Unspecified psychosis (2) Anxiety disorder (3) Dementia, vascular, with delusions (4) Dementia, vascular, with depression (5) Dementia in Alzheimer's disease with delusions (6) Dementia in Alzheimer's disease with depression (7) Impulse control disorder (8) Psychosis, atypical CORA PRADHAN MD Jul 13, 2018 22:27
[2018-07-14 06:07] VITALS: BP 112/72
[2018-07-14] MEDS: RIVASTIGMINE 9.5MG PATCH. TD SCH (07:46)
[2018-07-14] MEDS: FLUoxetine HCL 10 MG CAPSULE PO SCH (07:46)
[2018-07-14 16:13] VITALS: BP 113/68
[2018-07-14] MEDS: MIRTAZAPINE 15 MG TABLET PO SCH (19:48)
[2018-07-14] MEDS: traZODone 50 MG TABLET. PO SCH (19:48)
[2018-07-14] MEDS: risperiDONE 0.25 MG TABLET. PO SCH (19:49)
--- NOTE | 2018-07-14 22:28 | PDOC ---
Exam Note: Gadiel Note: Please also refer to the separate dictated note~for this date of service dictated separately.~Patient seen individually. Discussed the patient with Nursing staff reviewed the chart.~Reviewed interim history and current functioning. Reviewed vital signs,~Labs/ Radiology~and current medications noted below. Continue current treatment with the changes noted in the dictated addendum note Assessment: Vital Signs: Vital Signs Date Time Temp Pulse Resp B/P (MAP) Pulse Ox O2 Delivery O2 Flow Rate FiO2 07/14/18 16:13 98.0 76 18 113/68 (83) 98 Room Air I&O Intake and Output 07/14/18 07:01 Intake Total 720 ml Balance 720 ml Intake Oral 720 ml Current Medications: Meds: Current Medications Acetaminophen (Tylenol) 650 mg PRN Q6HRS PRN PO PAIN / TEMP Last administered on 06/30/18at 05:35; Start 06/26/18 at 16:45 Multi-Ingredient Ointment (Analgesic [place]) 1 tarik PRN QID PRN TP MUSCLE PAIN; Start 06/26/18 at 16:45 Al Hydroxide/Mg Hydroxide (Mylanta Plus Xs) 15 ml PRN AFTMEALHC PRN PO DYSPEPSIA; Start 06/26/18 at 16:45 Magnesium Hydroxide (Milk Of Magnesia) 2,400 mg PRN QHS PRN PO CONSTIPATION; Start 06/26/18 at 16:45 Phenazopyridine HCl (Pyridium) 100 mg PRN Q8HRS PRN PO URINARY DISCOMFORT; Start 06/26/18 at 18:15 Olanzapine (ZyPREXA ZYDIS) 2.5 mg PRN Q2HR PRN PO psychosis/agitation Last administered on 07/12/18at 20:24; Start 06/26/18 at 18:30 Rivastigmine (Exelon) 1 patch DAILY TD Last administered on 07/05/18at 08:35; Start 06/28/18 at 09:00; Stop 07/05/18 at 11:00; Status DC Rivastigmine (Exelon) 1 patch DAILY TD ; Start 07/06/18 at 09:00; Stop 07/06/18 at 09:00; Status DC Sertraline HCl (Zoloft) 25 mg DAILY PO Last administered on 07/02/18at 09:00; Start 06/28/18 at 09:00; Stop 07/02/18 at 16:42; Status DC Trazodone HCl (Desyrel) 50 mg QHS PO Last administered on 07/14/18at 19:48; Start 06/28/18 at 21:00 Trazodone HCl (Desyrel) 50 mg PRN QHS PRN PO INSOMNIA; Start 06/28/18 at 04:30 Vitamin D (Vitamin D3) 50,000 unit WEEKLY PO Last administered on 07/06/18at 08: 51; Start 06/29/18 at 16:15 Cyanocobalamin (Vitamin B-12) 1,000 mcg DAILY IM Last administered on at 07:58; Start 06/30/18 at 09:00; Stop 07/09/18 at 17:55; Status DC Mirtazapine (Remeron) 7.5 mg QHS PO Last administered on 07/02/18at 20:49; Start 06/29/18 at 21:00; Stop 07/03/18 at 16:57; Status DC Sertraline HCl (Zoloft) 50 mg DAILY PO Last administered on 07/05/18at 08:34; Start 07/03/18 at 09:00; Stop 07/05/18 at 16:43; Status DC Rivastigmine (Exelon) 1 patch DAILY TD Last administered on 07/14/18 07:46; Start 07/03/18 at 09:00 Mirtazapine (Remeron) 15 mg QHS PO Last administered on 07/14/18 19:48; Start 07/03/18 at 21:00 Sertraline HCl (Zoloft) 75 mg DAILY PO Last administered on 07/12/18at 07:58; Start 07/06/18 at 09:00; Stop 07/12/18 at 16:55; Status DC Cyanocobalamin (Vitamin B-12) 1,000 mcg QMONTH IM ; Start 08/08/18 at 09:00 Ketorolac Tromethamine (Toradol Im) 60 mg 1X ONCE IM ; Start 07/12/18 at 13:30; Stop 07/12/18 at 13:31; Status DC Ketorolac Tromethamine (Toradol 30mg Vial) 30 mg STK-MED ONCE .ROUTE ; Start 07/12/18 at 13:13; Stop 07/12/18 at 13:15; Status DC Ketorolac Tromethamine (Toradol 30mg Vial) 30 mg STK-MED ONCE .ROUTE Last administered on 07/12/18at 13:28; Start 07/12/18 at 13:15; Stop 07/12/18 at 13:17; Status DC Lorazepam (Ativan) 1 mg 1X ONCE IV Last administered on 07/12/18at 13:45; Start 07/12/18 at 13:45; Stop 07/12/18 at 13:46; Status DC Iohexol (Omnipaque 300 Mg/ml) 75 ml 1X ONCE IV Last administered on 07/12/18at 14:30; Start 07/12/18 at 14:15; Stop 07/12/18 at 14:16; Status DC Ketorolac Tromethamine (Toradol 30mg Vial) 30 mg 1X ONCE IM ; Start 07/12/18 at 13:15; Stop 07/12/18 at 14:25; Status DC Dextrose 1,000 ml @ 250 mls/hr 1X ONCE IV Last administered on 07/12/18at 16:19 ; Start 07/12/18 at 16:00; Stop 07/12/18 at 20:00; Status DC Fluoxetine HCl (PROzac) 10 mg DAILY PO Last administered on 07/14/18at 07:46; Start 07/13/18 at 09:00 Quetiapine Fumarate (SEROquel) 25 mg HS PO Last administered on 07/12/18at 20:19 ; Start 07/12/18 at 21:00; Stop 07/13/18 at 20:31; Status DC Risperidone (RisperDAL) 0.25 mg 1X ONCE PO Last administered on 07/13/18at 20:49 ; Start 07/13/18 at 20:30; Stop 07/13/18 at 20:33; Status DC Risperidone (RisperDAL) 0.5 mg HS PO Last administered on 07/14/18at 19:49; Start 07/14/18 at 21:00 Active Scripts Active Reported Compazine (Prochlorperazine Maleate) 5 Mg Tablet 5 Mg IVP PRN Q4HRS PRN Phenazopyridine Hcl 100 Mg Tablet 100 Mg PO PRN Q8HRS PRN Ondansetron Hcl 4 Mg/2 Ml Vial (Ondansetron Hcl/Pf) 4 Mg/2 Ml Vial 4 Mg IVP PRN Q6HRS PRN I have reviewed the current psychotropics carefully including drug interactions. Risk benefit ratio favors no change other than as noted in my dictated progress note. Diagnosis: Problems: (1) Unspecified psychosis (2) Anxiety disorder (3) Dementia, vascular, with delusions (4) Dementia, vascular, with depression (5) Dementia in Alzheimer's disease with delusions (6) Dementia in Alzheimer's disease with depression (7) Impulse control disorder (8) Psychosis, atypical CORA PRADHAN MD Jul 14, 2018 22:28
--- NOTE | 2018-07-15 01:21 | PN ---
DATE: 07/12/2018 PSYCHIATRIC PROGRESS NOTE This late entry 07/12/2018 covers elements not covered in my initial note. SUBJECTIVE: I met with the patient in the evening. The patient slept 2-1/2 hours previous night. He complains of abdominal pain, grabbing his tummy. CT abdomen per Dr. Ewing unremarkable. Received IM Ativan 1 mg earlier in the day as he was trying to roll around on the floor, questionably with pain, but not entirely clear. Soon after Ativan, he did much better, was less anxious. REVIEW OF SYSTEMS: No CV, , pulmonary, eye system symptoms on review. He does have the above GI symptoms. MENTAL STATUS EXAM: Oriented to himself and situation. Speech coherent, abstraction fair, computation impaired, language function intact, attention span short. Mood and affect remain somewhat withdrawn. LABORATORY DATA: Reviewed. IMPRESSION: Psychotic disorder, unspecified; major neurocognitive disorder, Alzheimer, vascular with delusion, depression, possible gastrointestinal side effects from Zoloft. PLAN: Continue psychotropics from initial note. Change Zoloft to Prozac 10 mg a day. Start Seroquel 25 mg at bedtime. The patient received 1 liter of D5W and we will repeat labs. Defer to Dr. Ewing. MAN Delilah PRADHAN MD DR: SINDI/kaden JOB#: [id number] / [id number]
[2018-07-15 06:13] VITALS: BP 119/74
[2018-07-15] MEDS: FLUoxetine HCL 10 MG CAPSULE PO SCH (07:45)
[2018-07-15] MEDS: RIVASTIGMINE 9.5MG PATCH. TD SCH (07:46)
[2018-07-15 16:17] VITALS: BP 109/69
[2018-07-15] MEDS: risperiDONE 0.25 MG TABLET. PO SCH (21:11)
[2018-07-15] MEDS: traZODone 50 MG TABLET. PO SCH (21:11)
[2018-07-15] MEDS: MIRTAZAPINE 15 MG TABLET PO SCH (21:12)
--- NOTE | 2018-07-15 21:55 | PN ---
DATE: 07/13/2018 PSYCHIATRIC PROGRESS NOTE This late entry 07/13/2018 covers elements, not covered in my initial note. SUBJECTIVE: I met with the patient in the evening. The patient slept 0 hours previous night. He did receive IV fluids last evening and was quite psychotic at night, seeing demons, intermittently agitated, felt the demons were coming from [place]. REVIEW OF SYSTEMS: No CV, , pulmonary, eye, ENT system symptoms on review. MENTAL STATUS EXAM: Oriented to himself, situation. Speech has some latency, low in volume, often responses monosyllabic. Abstraction fair, computation impaired, language function intact, attention span short. Mood and affect remain somewhat withdrawn. LABORATORY DATA: Reviewed. IMPRESSION: Unchanged from initial note. PLAN: Change Seroquel to Risperdal 0.25 mg p.o. at bedtime for 1 day and then 0.5 mg p.o. at bedtime. Use trazodone and Remeron for insomnia. MAN Delilah PRADHAN MD DR: SINDI/kaden JOB#: [id number] / [id number]
--- NOTE | 2018-07-15 22:34 | PDOC ---
Exam Note: Gadiel Note: Please also refer to the separate dictated note~for this date of service dictated separately.~Patient seen individually. Discussed the patient with Nursing staff reviewed the chart.~Reviewed interim history and current functioning. Reviewed vital signs,~Labs/ Radiology~and current medications noted below. Continue current treatment with the changes noted in the dictated addendum note Assessment: Vital Signs: Vital Signs Date Time Temp Pulse Resp B/P (MAP) Pulse Ox O2 Delivery O2 Flow Rate FiO2 07/15/18 19:38 97.6 07/15/18 16:17 67 16 109/69 (82) 100 07/14/18 16:13 Room Air I&O Intake and Output 07/15/18 07:01 Intake Total 720 ml Balance 720 ml Intake Oral 720 ml Current Medications: Meds: Current Medications Acetaminophen (Tylenol) 650 mg PRN Q6HRS PRN PO PAIN / TEMP Last administered on 06/30/18at 05:35; Start 06/26/18 at 16:45 Multi-Ingredient Ointment (Analgesic [place]) 1 tarik PRN QID PRN TP MUSCLE PAIN; Start 06/26/18 at 16:45 Al Hydroxide/Mg Hydroxide (Mylanta Plus Xs) 15 ml PRN AFTMEALHC PRN PO DYSPEPSIA; Start 06/26/18 at 16:45 Magnesium Hydroxide (Milk Of Magnesia) 2,400 mg PRN QHS PRN PO CONSTIPATION; Start 06/26/18 at 16:45 Phenazopyridine HCl (Pyridium) 100 mg PRN Q8HRS PRN PO URINARY DISCOMFORT; Start 06/26/18 at 18:15 Olanzapine (ZyPREXA ZYDIS) 2.5 mg PRN Q2HR PRN PO psychosis/agitation Last administered on 07/12/18at 20:24; Start 06/26/18 at 18:30 Rivastigmine (Exelon) 1 patch DAILY TD Last administered on 07/05/18at 08:35; Start 06/28/18 at 09:00; Stop 07/05/18 at 11:00; Status DC Rivastigmine (Exelon) 1 patch DAILY TD ; Start 07/06/18 at 09:00; Stop 07/06/18 at 09:00; Status DC Sertraline HCl (Zoloft) 25 mg DAILY PO Last administered on 07/02/18at 09:00; Start 06/28/18 at 09:00; Stop 07/02/18 at 16:42; Status DC Trazodone HCl (Desyrel) 50 mg QHS PO Last administered on 07/15/18at 21:11; Start 06/28/18 at 21:00 Trazodone HCl (Desyrel) 50 mg PRN QHS PRN PO INSOMNIA; Start 06/28/18 at 04:30 Vitamin D (Vitamin D3) 50,000 unit WEEKLY PO Last administered on 07/06/18at 08: 51; Start 06/29/18 at 16:15 Cyanocobalamin (Vitamin B-12) 1,000 mcg DAILY IM Last administered on at 07:58; Start 06/30/18 at 09:00; Stop 07/09/18 at 17:55; Status DC Mirtazapine (Remeron) 7.5 mg QHS PO Last administered on 07/02/18at 20:49; Start 06/29/18 at 21:00; Stop 07/03/18 at 16:57; Status DC Sertraline HCl (Zoloft) 50 mg DAILY PO Last administered on 07/05/18at 08:34; Start 07/03/18 at 09:00; Stop 07/05/18 at 16:43; Status DC Rivastigmine (Exelon) 1 patch DAILY TD Last administered on 07/15/18 07:46; Start 07/03/18 at 09:00 Mirtazapine (Remeron) 15 mg QHS PO Last administered on 07/15/18at 21:12; Start 07/03/18 at 21:00 Sertraline HCl (Zoloft) 75 mg DAILY PO Last administered on 07/12/18 07:58; Start 07/06/18 at 09:00; Stop 07/12/18 at 16:55; Status DC Cyanocobalamin (Vitamin B-12) 1,000 mcg QMONTH IM ; Start 08/08/18 at 09:00 Ketorolac Tromethamine (Toradol Im) 60 mg 1X ONCE IM ; Start 07/12/18 at 13:30; Stop 07/12/18 at 13:31; Status DC Ketorolac Tromethamine (Toradol 30mg Vial) 30 mg STK-MED ONCE .ROUTE ; Start 07/12/18 at 13:13; Stop 07/12/18 at 13:15; Status DC Ketorolac Tromethamine (Toradol 30mg Vial) 30 mg STK-MED ONCE .ROUTE Last administered on 07/12/18at 13:28; Start 07/12/18 at 13:15; Stop 07/12/18 at 13:17; Status DC Lorazepam (Ativan) 1 mg 1X ONCE IV Last administered on 07/12/18at 13:45; Start 07/12/18 at 13:45; Stop 07/12/18 at 13:46; Status DC Iohexol (Omnipaque 300 Mg/ml) 75 ml 1X ONCE IV Last administered on 07/12/18at 14:30; Start 07/12/18 at 14:15; Stop 07/12/18 at 14:16; Status DC Ketorolac Tromethamine (Toradol 30mg Vial) 30 mg 1X ONCE IM ; Start 07/12/18 at 13:15; Stop 07/12/18 at 14:25; Status DC Dextrose 1,000 ml @ 250 mls/hr 1X ONCE IV Last administered on 07/12/18at 16:19 ; Start 07/12/18 at 16:00; Stop 07/12/18 at 20:00; Status DC Fluoxetine HCl (PROzac) 10 mg DAILY PO Last administered on 07/15/18at 07:45; Start 07/13/18 at 09:00 Quetiapine Fumarate (SEROquel) 25 mg HS PO Last administered on 07/12/18at 20:19 ; Start 07/12/18 at 21:00; Stop 07/13/18 at 20:31; Status DC Risperidone (RisperDAL) 0.25 mg 1X ONCE PO Last administered on 07/13/18at 20:49 ; Start 07/13/18 at 20:30; Stop 07/13/18 at 20:33; Status DC Risperidone (RisperDAL) 0.5 mg HS PO Last administered on 07/15/18at 21:11; Start 07/14/18 at 21:00 Active Scripts Active Reported Compazine (Prochlorperazine Maleate) 5 Mg Tablet 5 Mg IVP PRN Q4HRS PRN Phenazopyridine Hcl 100 Mg Tablet 100 Mg PO PRN Q8HRS PRN Ondansetron Hcl 4 Mg/2 Ml Vial (Ondansetron Hcl/Pf) 4 Mg/2 Ml Vial 4 Mg IVP PRN Q6HRS PRN I have reviewed the current psychotropics carefully including drug interactions. Risk benefit ratio favors no change other than as noted in my dictated progress note. Diagnosis: Problems: (1) Unspecified psychosis (2) Anxiety disorder (3) Dementia, vascular, with delusions (4) Dementia, vascular, with depression (5) Dementia in Alzheimer's disease with delusions (6) Dementia in Alzheimer's disease with depression (7) Impulse control disorder (8) Psychosis, atypical CORA PRADHAN MD Jul 15, 2018 22:34
--- NOTE | 2018-07-16 03:11 | PN ---
DATE: 07/14/2018 This late entry for 07/14/2018 covers elements not covered in my initial note. SUBJECTIVE: I met with the patient in the evening in his room. The patient slept 6 hours previous night. He has been somewhat obsessive, wanting to shower repeatedly. Rest of the day, he has done better. REVIEW OF SYSTEMS: No CV, , pulmonary, eye system symptoms on review. Reliability varies. MENTAL STATUS EXAM: Oriented to himself and situation. Speech has some latency, coherent. Abstraction fair, computation impaired, language function intact. Mood and affect somewhat withdrawn. LABORATORY DATA: Reviewed. IMPRESSION: Unchanged from initial note. PLAN: No change from initial note. MAN Delilah PRADHAN MD DR: SINDI/kaden JOB#: [id number] / [id number]
[2018-07-16 06:18] VITALS: BP 131/78
[2018-07-16] MEDS: FLUoxetine HCL 10 MG CAPSULE PO SCH (08:47)
[2018-07-16] MEDS: RIVASTIGMINE 9.5MG PATCH. TD SCH (08:47)
[2018-07-16 17:07] VITALS: BP 134/75
[2018-07-16] MEDS ORDERED: traZODone 50 MG TABLET. PO ONE (18:15)
[2018-07-16] MEDS: traZODone 50 MG TABLET. PO SCH (21:08)
[2018-07-16] MEDS: risperiDONE 0.25 MG TABLET. PO SCH (21:08)
[2018-07-16] MEDS: MIRTAZAPINE 15 MG TABLET PO SCH (21:08)
--- NOTE | 2018-07-16 22:51 | PDOC ---
Exam Note: Gadiel Note: Please also refer to the separate dictated note~for this date of service dictated separately.~Patient seen individually. Discussed the patient with Nursing staff reviewed the chart.~Reviewed interim history and current functioning. Reviewed vital signs,~Labs/ Radiology~and current medications noted below. Continue current treatment with the changes noted in the dictated addendum note Assessment: Vital Signs: Vital Signs Date Time Temp Pulse Resp B/P (MAP) Pulse Ox O2 Delivery O2 Flow Rate FiO2 07/16/18 17:07 97.6 78 18 134/75 (94) 100 07/14/18 16:13 Room Air I&O Intake and Output 07/16/18 07:01 Intake Total 920 ml Balance 920 ml Intake Oral 920 ml Current Medications: Meds: Current Medications Acetaminophen (Tylenol) 650 mg PRN Q6HRS PRN PO PAIN / TEMP Last administered on 06/30/18at 05:35; Start 06/26/18 at 16:45 Multi-Ingredient Ointment (Analgesic [place]) 1 tarik PRN QID PRN TP MUSCLE PAIN; Start 06/26/18 at 16:45 Al Hydroxide/Mg Hydroxide (Mylanta Plus Xs) 15 ml PRN AFTMEALHC PRN PO DYSPEPSIA; Start 06/26/18 at 16:45 Magnesium Hydroxide (Milk Of Magnesia) 2,400 mg PRN QHS PRN PO CONSTIPATION; Start 06/26/18 at 16:45 Phenazopyridine HCl (Pyridium) 100 mg PRN Q8HRS PRN PO URINARY DISCOMFORT; Start 06/26/18 at 18:15 Olanzapine (ZyPREXA ZYDIS) 2.5 mg PRN Q2HR PRN PO psychosis/agitation Last administered on 07/16/18at 17:25; Start 06/26/18 at 18:30 Rivastigmine (Exelon) 1 patch DAILY TD Last administered on 07/05/18at 08:35; Start 06/28/18 at 09:00; Stop 07/05/18 at 11:00; Status DC Rivastigmine (Exelon) 1 patch DAILY TD ; Start 07/06/18 at 09:00; Stop 07/06/18 at 09:00; Status DC Sertraline HCl (Zoloft) 25 mg DAILY PO Last administered on 07/02/18at 09:00; Start 06/28/18 at 09:00; Stop 07/02/18 at 16:42; Status DC Trazodone HCl (Desyrel) 50 mg QHS PO Last administered on 07/16/18 21:08; Start 06/28/18 at 21:00 Trazodone HCl (Desyrel) 50 mg PRN QHS PRN PO INSOMNIA; Start 06/28/18 at 04:30 Vitamin D (Vitamin D3) 50,000 unit WEEKLY PO Last administered on 07/06/18at 08: 51; Start 06/29/18 at 16:15 Cyanocobalamin (Vitamin B-12) 1,000 mcg DAILY IM Last administered on at 07:58; Start 06/30/18 at 09:00; Stop 07/09/18 at 17:55; Status DC Mirtazapine (Remeron) 7.5 mg QHS PO Last administered on 07/02/18at 20:49; Start 06/29/18 at 21:00; Stop 07/03/18 at 16:57; Status DC Sertraline HCl (Zoloft) 50 mg DAILY PO Last administered on 07/05/18at 08:34; Start 07/03/18 at 09:00; Stop 07/05/18 at 16:43; Status DC Rivastigmine (Exelon) 1 patch DAILY TD Last administered on 07/16/18 08:47; Start 07/03/18 at 09:00 Mirtazapine (Remeron) 15 mg QHS PO Last administered on 07/16/18 21:08; Start 07/03/18 at 21:00 Sertraline HCl (Zoloft) 75 mg DAILY PO Last administered on 07/12/18 07:58; Start 07/06/18 at 09:00; Stop 07/12/18 at 16:55; Status DC Cyanocobalamin (Vitamin B-12) 1,000 mcg QMONTH IM ; Start 08/08/18 at 09:00 Ketorolac Tromethamine (Toradol Im) 60 mg 1X ONCE IM ; Start 07/12/18 at 13:30; Stop 07/12/18 at 13:31; Status DC Ketorolac Tromethamine (Toradol 30mg Vial) 30 mg STK-MED ONCE .ROUTE ; Start 07/12/18 at 13:13; Stop 07/12/18 at 13:15; Status DC Ketorolac Tromethamine (Toradol 30mg Vial) 30 mg STK-MED ONCE .ROUTE Last administered on 07/12/18at 13:28; Start 07/12/18 at 13:15; Stop 07/12/18 at 13:17; Status DC Lorazepam (Ativan) 1 mg 1X ONCE IV Last administered on 07/12/18at 13:45; Start 07/12/18 at 13:45; Stop 07/12/18 at 13:46; Status DC Iohexol (Omnipaque 300 Mg/ml) 75 ml 1X ONCE IV Last administered on 07/12/18at 14:30; Start 07/12/18 at 14:15; Stop 07/12/18 at 14:16; Status DC Ketorolac Tromethamine (Toradol 30mg Vial) 30 mg 1X ONCE IM ; Start 07/12/18 at 13:15; Stop 07/12/18 at 14:25; Status DC Dextrose 1,000 ml @ 250 mls/hr 1X ONCE IV Last administered on 07/12/18at 16:19 ; Start 07/12/18 at 16:00; Stop 07/12/18 at 20:00; Status DC Fluoxetine HCl (PROzac) 10 mg DAILY PO Last administered on 07/16/18at 08:47; Start 07/13/18 at 09:00 Quetiapine Fumarate (SEROquel) 25 mg HS PO Last administered on 07/12/18at 20:19 ; Start 07/12/18 at 21:00; Stop 07/13/18 at 20:31; Status DC Risperidone (RisperDAL) 0.25 mg 1X ONCE PO Last administered on 07/13/18at 20:49 ; Start 07/13/18 at 20:30; Stop 07/13/18 at 20:33; Status DC Risperidone (RisperDAL) 0.5 mg HS PO Last administered on 07/16/18at 21:08; Start 07/14/18 at 21:00 Trazodone HCl (Desyrel) 50 mg 1X ONCE PO Last administered on 07/16/18at 18:20; Start 07/16/18 at 18:15; Stop 07/16/18 at 18:32; Status DC Olanzapine (ZyPREXA ZYDIS) 2.5 mg 1X ONCE PO Last administered on 07/16/18at 18: 20; Start 07/16/18 at 18:15; Stop 07/16/18 at 18:32; Status DC Lorazepam (Ativan) 1 mg DAILY IM ; Start 07/16/18 at 18:30 Active Scripts Active Reported Compazine (Prochlorperazine Maleate) 5 Mg Tablet 5 Mg IVP PRN Q4HRS PRN Phenazopyridine Hcl 100 Mg Tablet 100 Mg PO PRN Q8HRS PRN Ondansetron Hcl 4 Mg/2 Ml Vial (Ondansetron Hcl/Pf) 4 Mg/2 Ml Vial 4 Mg IVP PRN Q6HRS PRN I have reviewed the current psychotropics carefully including drug interactions. Risk benefit ratio favors no change other than as noted in my dictated progress note. Diagnosis: Problems: (1) Unspecified psychosis (2) Anxiety disorder (3) Dementia, vascular, with delusions (4) Dementia, vascular, with depression (5) Dementia in Alzheimer's disease with delusions (6) Dementia in Alzheimer's disease with depression (7) Impulse control disorder (8) Psychosis, atypical CORA PRADHAN MD Jul 16, 2018 22:51
--- NOTE | 2018-07-17 04:12 | PN ---
DATE: 07/15/2018 PSYCHIATRIC PROGRESS NOTE This is a late entry for 07/15/2018 and covers elements not covered in my initial note. SUBJECTIVE: I met with the patient in the evening. The patient slept 6 hours previous night. On further review, in fact slept 7-1/4 hours. He remains noncompliant with medication, somewhat withdrawn, meds had to be syringed the previous night. During the day on 07/15/2018, meds had to be hidden in food, did go to the day room, which is an improvement compliant with assessment. No CV, , pulmonary, eye system symptoms on review. MENTAL STATUS EXAM: Oriented to himself and situation. Speech coherent, often responses monosyllabic. Abstraction fair, computation impaired, language function intact. Mood and affect somewhat withdrawn. LABORATORY DATA: Reviewed. IMPRESSION: Unchanged from initial note. PLAN: No change from initial note. MAN Delilah PRADHAN MD DR: SINDI/kaden JOB#: [id number] / [id number]
[2018-07-17 05:53] VITALS: BP 144/88
[2018-07-17] MEDS: FLUoxetine HCL 10 MG CAPSULE PO SCH (08:14)
[2018-07-17] MEDS: RIVASTIGMINE 9.5MG PATCH. TD SCH (08:14)
[2018-07-17 16:05] VITALS: BP 105/65
[2018-07-17] MEDS: MIRTAZAPINE 15 MG TABLET PO SCH (21:15)
[2018-07-17] MEDS: traZODone 50 MG TABLET. PO SCH (21:15)
[2018-07-17] MEDS: risperiDONE 0.5 MG TABLET. PO SCH (21:15)
--- NOTE | 2018-07-17 22:50 | PDOC ---
Exam Note: Gadiel Note: Please also refer to the separate dictated note~for this date of service dictated separately.~Patient seen individually. Discussed the patient with Nursing staff reviewed the chart.~Reviewed interim history and current functioning. Reviewed vital signs,~Labs/ Radiology~and current medications noted below. Continue current treatment with the changes noted in the dictated addendum note Assessment: Vital Signs: Vital Signs Date Time Temp Pulse Resp B/P (MAP) Pulse Ox O2 Delivery O2 Flow Rate FiO2 07/17/18 16:05 98.4 87 20 105/65 (78) 95 07/14/18 16:13 Room Air I&O Intake and Output 07/17/18 07:01 Intake Total 420 ml Balance 420 ml Intake Oral 420 ml # Voids 1 Current Medications: Meds: Current Medications Acetaminophen (Tylenol) 650 mg PRN Q6HRS PRN PO PAIN / TEMP Last administered on 06/30/18at 05:35; Start 06/26/18 at 16:45 Multi-Ingredient Ointment (Analgesic [place]) 1 tarik PRN QID PRN TP MUSCLE PAIN; Start 06/26/18 at 16:45 Al Hydroxide/Mg Hydroxide (Mylanta Plus Xs) 15 ml PRN AFTMEALHC PRN PO DYSPEPSIA; Start 06/26/18 at 16:45 Magnesium Hydroxide (Milk Of Magnesia) 2,400 mg PRN QHS PRN PO CONSTIPATION; Start 06/26/18 at 16:45 Phenazopyridine HCl (Pyridium) 100 mg PRN Q8HRS PRN PO URINARY DISCOMFORT; Start 06/26/18 at 18:15 Olanzapine (ZyPREXA ZYDIS) 2.5 mg PRN Q2HR PRN PO psychosis/agitation Last administered on 07/16/18at 17:25; Start 06/26/18 at 18:30 Rivastigmine (Exelon) 1 patch DAILY TD Last administered on 07/05/18at 08:35; Start 06/28/18 at 09:00; Stop 07/05/18 at 11:00; Status DC Rivastigmine (Exelon) 1 patch DAILY TD ; Start 07/06/18 at 09:00; Stop 07/06/18 at 09:00; Status DC Sertraline HCl (Zoloft) 25 mg DAILY PO Last administered on 07/02/18at 09:00; Start 06/28/18 at 09:00; Stop 07/02/18 at 16:42; Status DC Trazodone HCl (Desyrel) 50 mg QHS PO Last administered on 07/17/18at 21:15; Start 06/28/18 at 21:00 Trazodone HCl (Desyrel) 50 mg PRN QHS PRN PO INSOMNIA; Start 06/28/18 at 04:30 Vitamin D (Vitamin D3) 50,000 unit WEEKLY PO Last administered on 07/06/18at 08: 51; Start 06/29/18 at 16:15 Cyanocobalamin (Vitamin B-12) 1,000 mcg DAILY IM Last administered on at 07:58; Start 06/30/18 at 09:00; Stop 07/09/18 at 17:55; Status DC Mirtazapine (Remeron) 7.5 mg QHS PO Last administered on 07/02/18at 20:49; Start 06/29/18 at 21:00; Stop 07/03/18 at 16:57; Status DC Sertraline HCl (Zoloft) 50 mg DAILY PO Last administered on 07/05/18at 08:34; Start 07/03/18 at 09:00; Stop 07/05/18 at 16:43; Status DC Rivastigmine (Exelon) 1 patch DAILY TD Last administered on 07/17/18at 08:14; Start 07/03/18 at 09:00; Stop 07/17/18 at 12:49; Status DC Mirtazapine (Remeron) 15 mg QHS PO Last administered on 07/17/18at 21:15; Start 07/03/18 at 21:00 Sertraline HCl (Zoloft) 75 mg DAILY PO Last administered on 07/12/18at 07:58; Start 07/06/18 at 09:00; Stop 07/12/18 at 16:55; Status DC Cyanocobalamin (Vitamin B-12) 1,000 mcg QMONTH IM ; Start 08/08/18 at 09:00 Ketorolac Tromethamine (Toradol Im) 60 mg 1X ONCE IM ; Start 07/12/18 at 13:30; Stop 07/12/18 at 13:31; Status DC Ketorolac Tromethamine (Toradol 30mg Vial) 30 mg STK-MED ONCE .ROUTE ; Start 07/12/18 at 13:13; Stop 07/12/18 at 13:15; Status DC Ketorolac Tromethamine (Toradol 30mg Vial) 30 mg STK-MED ONCE .ROUTE Last administered on 07/12/18at 13:28; Start 07/12/18 at 13:15; Stop 07/12/18 at 13:17; Status DC Lorazepam (Ativan) 1 mg 1X ONCE IV Last administered on 07/12/18at 13:45; Start 07/12/18 at 13:45; Stop 07/12/18 at 13:46; Status DC Iohexol (Omnipaque 300 Mg/ml) 75 ml 1X ONCE IV Last administered on 07/12/18at 14:30; Start 07/12/18 at 14:15; Stop 07/12/18 at 14:16; Status DC Ketorolac Tromethamine (Toradol 30mg Vial) 30 mg 1X ONCE IM ; Start 07/12/18 at 13:15; Stop 07/12/18 at 14:25; Status DC Dextrose 1,000 ml @ 250 mls/hr 1X ONCE IV Last administered on 07/12/18at 16:19 ; Start 07/12/18 at 16:00; Stop 07/12/18 at 20:00; Status DC Fluoxetine HCl (PROzac) 10 mg DAILY PO Last administered on 07/17/18at 08:14; Start 07/13/18 at 09:00; Stop 07/17/18 at 12:49; Status DC Quetiapine Fumarate (SEROquel) 25 mg HS PO Last administered on 07/12/18at 20:19 ; Start 07/12/18 at 21:00; Stop 07/13/18 at 20:31; Status DC Risperidone (RisperDAL) 0.25 mg 1X ONCE PO Last administered on 07/13/18at 20:49 ; Start 07/13/18 at 20:30; Stop 07/13/18 at 20:33; Status DC Risperidone (RisperDAL) 0.5 mg HS PO Last administered on 07/16/18at 21:08; Start 07/14/18 at 21:00; Stop 07/17/18 at 12:49; Status DC Trazodone HCl (Desyrel) 50 mg 1X ONCE PO Last administered on 07/16/18at 18:20; Start 07/16/18 at 18:15; Stop 07/16/18 at 18:32; Status DC Olanzapine (ZyPREXA ZYDIS) 2.5 mg 1X ONCE PO Last administered on 07/16/18at 18: 20; Start 07/16/18 at 18:15; Stop 07/16/18 at 18:32; Status DC Lorazepam (Ativan) 1 mg DAILY IM ; Start 07/16/18 at 18:30 Fluoxetine HCl (PROzac) 20 mg DAILY PO ; Start 07/18/18 at 09:00 Risperidone (RisperDAL) 0.5 mg BID PO Last administered on 07/17/18at 21:15; Start 07/17/18 at 21:00 Rivastigmine (Exelon 13.3mg) 1 patch DAILY TD ; Start 07/18/18 at 09:00 Memantine (Namenda) 5 mg BID PO ; Start 07/21/18 at 09:00 Active Scripts Active Reported Compazine (Prochlorperazine Maleate) 5 Mg Tablet 5 Mg IVP PRN Q4HRS PRN Phenazopyridine Hcl 100 Mg Tablet 100 Mg PO PRN Q8HRS PRN Ondansetron Hcl 4 Mg/2 Ml Vial (Ondansetron Hcl/Pf) 4 Mg/2 Ml Vial 4 Mg IVP PRN Q6HRS PRN I have reviewed the current psychotropics carefully including drug interactions. Risk benefit ratio favors no change other than as noted in my dictated progress note. Diagnosis: Problems: (1) Unspecified psychosis (2) Anxiety disorder (3) Dementia, vascular, with delusions (4) Dementia, vascular, with depression (5) Dementia in Alzheimer's disease with delusions (6) Dementia in Alzheimer's disease with depression (7) Impulse control disorder (8) Psychosis, atypical CORA PRADHAN MD Jul 17, 2018 22:50
--- NOTE | 2018-07-18 02:08 | PN ---
DATE: 07/16/2018 This late entry for 07/16/2018 covers elements not covered in my initial note. SUBJECTIVE: I met with the patient in the evening. The patient slept 7 hours previous night. He was calm in the morning. and daughter visited. He was more agitated with the visit around lunchtime. Late in the evening when I met with him, he was having a very, very difficult time. He is psychotic, agitated, throwing himself on the floor, banging his head on the floor, kicking at doors, grabbing at staff and twisting their arms trying to kick me as I attempted to meet with him. Appears extremely psychotic, disorganized. REVIEW OF SYSTEMS: No CV, , pulmonary, eye, ENT system symptoms on review. Reliability poor. MENTAL STATUS EXAM: Oriented to himself. Insight, judgment, recent and remote memory, attention, concentration, fund of knowledge poor, consistent with his diagnosis. IMPRESSION: Possibly major neurocognitive disorder, Lewy body with delusion, depression, behavioral disturbance, major neurocognitive multifactorial secondary to alcohol, Alzheimer, vascular with delusion, depression, behavioral disturbance, psychotic disorder, unspecified; anxiety disorder, unspecified; impulse control disorder, unspecified. PLAN: Continue psychotropics from initial note. Start Ativan 1 mg IM daily scheduled. He is refusing all p.o. meds. Continue rest unchanged. Encouraged p.o. compliance. MAN Delilah PRADHAN MD DR: SINDI/kaden JOB#: [id number] / [id number]
[2018-07-18 06:41] VITALS: BP 148/86
[2018-07-18] MEDS: risperiDONE 0.5 MG TABLET. PO SCH ×2 (08:13→19:17)
[2018-07-18] MEDS: FLUoxetine HCL 20 MG CAPSULE PO SCH (08:15)
[2018-07-18] MEDS: RIVASTIGMINE 13.3MG PATCH. TD SCH (08:15)
[2018-07-18 16:57] VITALS: BP 152/82
[2018-07-18] MEDS: MIRTAZAPINE 15 MG TABLET PO SCH (19:18)
[2018-07-18] MEDS: traZODone 50 MG TABLET. PO SCH (19:18)
--- NOTE | 2018-07-18 22:28 | PDOC ---
Exam Note: Gadiel Note: Please also refer to the separate dictated note~for this date of service dictated separately.~Patient seen individually. Discussed the patient with Nursing staff reviewed the chart.~Reviewed interim history and current functioning. Reviewed vital signs,~Labs/ Radiology~and current medications noted below. Continue current treatment with the changes noted in the dictated addendum note Assessment: Vital Signs: Vital Signs Date Time Temp Pulse Resp B/P (MAP) Pulse Ox O2 Delivery O2 Flow Rate FiO2 07/18/18 16:57 98.1 95 18 152/82 (105) 96 07/14/18 16:13 Room Air I&O Intake and Output 07/18/18 07:01 Intake Total 960 ml Balance 960 ml Intake Oral 960 ml # Voids 1 Current Medications: Meds: Current Medications Acetaminophen (Tylenol) 650 mg PRN Q6HRS PRN PO PAIN / TEMP Last administered on 06/30/18at 05:35; Start 06/26/18 at 16:45 Multi-Ingredient Ointment (Analgesic [place]) 1 tarik PRN QID PRN TP MUSCLE PAIN; Start 06/26/18 at 16:45 Al Hydroxide/Mg Hydroxide (Mylanta Plus Xs) 15 ml PRN AFTMEALHC PRN PO DYSPEPSIA; Start 06/26/18 at 16:45 Magnesium Hydroxide (Milk Of Magnesia) 2,400 mg PRN QHS PRN PO CONSTIPATION; Start 06/26/18 at 16:45 Phenazopyridine HCl (Pyridium) 100 mg PRN Q8HRS PRN PO URINARY DISCOMFORT; Start 06/26/18 at 18:15 Olanzapine (ZyPREXA ZYDIS) 2.5 mg PRN Q2HR PRN PO psychosis/agitation Last administered on 07/16/18at 17:25; Start 06/26/18 at 18:30 Rivastigmine (Exelon) 1 patch DAILY TD Last administered on 07/05/18at 08:35; Start 06/28/18 at 09:00; Stop 07/05/18 at 11:00; Status DC Rivastigmine (Exelon) 1 patch DAILY TD ; Start 07/06/18 at 09:00; Stop 07/06/18 at 09:00; Status DC Sertraline HCl (Zoloft) 25 mg DAILY PO Last administered on 07/02/18at 09:00; Start 06/28/18 at 09:00; Stop 07/02/18 at 16:42; Status DC Trazodone HCl (Desyrel) 50 mg QHS PO Last administered on 07/18/18at 19:18; Start 06/28/18 at 21:00 Trazodone HCl (Desyrel) 50 mg PRN QHS PRN PO INSOMNIA; Start 06/28/18 at 04:30 Vitamin D (Vitamin D3) 50,000 unit WEEKLY PO Last administered on 07/06/18at 08: 51; Start 06/29/18 at 16:15 Cyanocobalamin (Vitamin B-12) 1,000 mcg DAILY IM Last administered on at 07:58; Start 06/30/18 at 09:00; Stop 07/09/18 at 17:55; Status DC Mirtazapine (Remeron) 7.5 mg QHS PO Last administered on 07/02/18at 20:49; Start 06/29/18 at 21:00; Stop 07/03/18 at 16:57; Status DC Sertraline HCl (Zoloft) 50 mg DAILY PO Last administered on 07/05/18at 08:34; Start 07/03/18 at 09:00; Stop 07/05/18 at 16:43; Status DC Rivastigmine (Exelon) 1 patch DAILY TD Last administered on 07/17/18at 08:14; Start 07/03/18 at 09:00; Stop 07/17/18 at 12:49; Status DC Mirtazapine (Remeron) 15 mg QHS PO Last administered on 07/18/18at 19:18; Start 07/03/18 at 21:00 Sertraline HCl (Zoloft) 75 mg DAILY PO Last administered on 07/12/18at 07:58; Start 07/06/18 at 09:00; Stop 07/12/18 at 16:55; Status DC Cyanocobalamin (Vitamin B-12) 1,000 mcg QMONTH IM ; Start 08/08/18 at 09:00 Ketorolac Tromethamine (Toradol Im) 60 mg 1X ONCE IM ; Start 07/12/18 at 13:30; Stop 07/12/18 at 13:31; Status DC Ketorolac Tromethamine (Toradol 30mg Vial) 30 mg STK-MED ONCE .ROUTE ; Start 07/12/18 at 13:13; Stop 07/12/18 at 13:15; Status DC Ketorolac Tromethamine (Toradol 30mg Vial) 30 mg STK-MED ONCE .ROUTE Last administered on 07/12/18at 13:28; Start 07/12/18 at 13:15; Stop 07/12/18 at 13:17; Status DC Lorazepam (Ativan) 1 mg 1X ONCE IV Last administered on 07/12/18at 13:45; Start 07/12/18 at 13:45; Stop 07/12/18 at 13:46; Status DC Iohexol (Omnipaque 300 Mg/ml) 75 ml 1X ONCE IV Last administered on 07/12/18at 14:30; Start 07/12/18 at 14:15; Stop 07/12/18 at 14:16; Status DC Ketorolac Tromethamine (Toradol 30mg Vial) 30 mg 1X ONCE IM ; Start 07/12/18 at 13:15; Stop 07/12/18 at 14:25; Status DC Dextrose 1,000 ml @ 250 mls/hr 1X ONCE IV Last administered on 07/12/18at 16:19 ; Start 07/12/18 at 16:00; Stop 07/12/18 at 20:00; Status DC Fluoxetine HCl (PROzac) 10 mg DAILY PO Last administered on 07/17/18at 08:14; Start 07/13/18 at 09:00; Stop 07/17/18 at 12:49; Status DC Quetiapine Fumarate (SEROquel) 25 mg HS PO Last administered on 07/12/18at 20:19 ; Start 07/12/18 at 21:00; Stop 07/13/18 at 20:31; Status DC Risperidone (RisperDAL) 0.25 mg 1X ONCE PO Last administered on 07/13/18at 20:49 ; Start 07/13/18 at 20:30; Stop 07/13/18 at 20:33; Status DC Risperidone (RisperDAL) 0.5 mg HS PO Last administered on 07/16/18at 21:08; Start 07/14/18 at 21:00; Stop 07/17/18 at 12:49; Status DC Trazodone HCl (Desyrel) 50 mg 1X ONCE PO Last administered on 07/16/18at 18:20; Start 07/16/18 at 18:15; Stop 07/16/18 at 18:32; Status DC Olanzapine (ZyPREXA ZYDIS) 2.5 mg 1X ONCE PO Last administered on 07/16/18at 18: 20; Start 07/16/18 at 18:15; Stop 07/16/18 at 18:32; Status DC Lorazepam (Ativan) 1 mg DAILY IM ; Start 07/16/18 at 18:30 Fluoxetine HCl (PROzac) 20 mg DAILY PO Last administered on 07/18/18 08:15; Start 07/18/18 at 09:00 Risperidone (RisperDAL) 0.5 mg BID PO Last administered on 07/18/18at 19:17; Start 07/17/18 at 21:00 Rivastigmine (Exelon 13.3mg) 1 patch DAILY TD Last administered on 07/18/18at 08: 15; Start 07/18/18 at 09:00 Memantine (Namenda) 5 mg BID PO ; Start 07/21/18 at 09:00 Active Scripts Active Reported Compazine (Prochlorperazine Maleate) 5 Mg Tablet 5 Mg IVP PRN Q4HRS PRN Phenazopyridine Hcl 100 Mg Tablet 100 Mg PO PRN Q8HRS PRN Ondansetron Hcl 4 Mg/2 Ml Vial (Ondansetron Hcl/Pf) 4 Mg/2 Ml Vial 4 Mg IVP PRN Q6HRS PRN I have reviewed the current psychotropics carefully including drug interactions. Risk benefit ratio favors no change other than as noted in my dictated progress note. Diagnosis: Problems: (1) Unspecified psychosis (2) Anxiety disorder (3) Dementia, vascular, with delusions (4) Dementia, vascular, with depression (5) Dementia in Alzheimer's disease with delusions (6) Dementia in Alzheimer's disease with depression (7) Impulse control disorder (8) Psychosis, atypical CORA PRADHAN MD Jul 18, 2018 22:28
[2018-07-19 05:55] VITALS: BP 171/88
[2018-07-19 07:52] LABS: BASO % 0 % (0-3); EOS % 0 % (0-3); HEMATOCRIT 39.2 % (39.0-53.0); HEMOGLOBIN 13.1 g/dL (13.0-17.5); LYMPH # 0.4 x10^3/uL (1.0-4.8); LYMPH % 4 % (24-48); MEAN CORPUSCULAR HEMOGLOBIN 32 pg (25-35); MEAN CORPUSCULAR HGB CONC 34 g/dL (31-37); MEAN CORPUSCULAR VOLUME 95 fL (79-100); MONO # 0.6 x10^3/uL (0.0-1.1); MONO % 7 % (0-9); NEUT # 7.3 x10^3uL (1.8-7.7); NEUT % 88 % (31-73); PLATELET COUNT 112 x10^3/uL (140-400); RED BLOOD COUNT 4.14 x10^6/uL (4.30-5.70); RED CELL DISTRIBUTION WIDTH 14.9 % (11.5-14.5); WHITE BLOOD COUNT 8.3 x10^3/uL (4.0-11.0)
[2018-07-19 08:05] LABS: ALBUMIN 3.5 g/dL (3.4-5.0); ALBUMIN/GLOBULIN RATIO 0.9 (1.0-1.7); CALCIUM 8.9 mg/dL (8.5-10.1); CREATININE 0.8 mg/dL (0.7-1.3); GFR 95.6; POTASSIUM 4.1 mmol/L (3.5-5.1); TOTAL BILIRUBIN 0.5 mg/dL (0.2-1.0); TOTAL PROTEIN 7.5 g/dL (6.4-8.2)
[2018-07-19] MEDS: FLUoxetine HCL 20 MG CAPSULE PO SCH (09:35)
[2018-07-19] MEDS: risperiDONE 0.5 MG TABLET. PO SCH ×2 (09:35→19:34)
[2018-07-19] MEDS: RIVASTIGMINE 13.3MG PATCH. TD SCH (09:36)
[2018-07-19 16:45] VITALS: BP 99/62
[2018-07-19] MEDS: MIRTAZAPINE 15 MG TABLET PO SCH (19:34)
[2018-07-19] MEDS: traZODone 50 MG TABLET. PO SCH (19:34)
--- NOTE | 2018-07-19 20:08 | PN ---
DATE: 07/17/2018 PSYCHIATRIC PROGRESS NOTE This is a late entry for 07/17/2018 and covers elements not covered in my initial note. SUBJECTIVE: I met with the patient in the evening and staffed at treatment team meeting earlier in the day. The patient slept 6 hours previous night. Appetite 50-75%. He has had an episode previous evening when he appeared somewhat disorganized, once again psychotic, agitated, but not on 07/17/2018. REVIEW OF SYSTEMS: No CV, , pulmonary, eye, ENT system symptoms on review, reliability varies. MENTAL STATUS EXAM: Oriented to himself, situation. Speech, low in rate and rhythm, low in volume, often responses monosyllabic. Abstraction fair, computation impaired, language function intact, attention span short. Mood and affect somewhat withdrawn. LABORATORY DATA: Reviewed. IMPRESSION: Major neurocognitive disorder, multifactorial secondary to alcohol, Alzheimer, vascular with delusion, depression, behavioral disturbance; anxiety disorder, unspecified; impulse control disorder, unspecified. PLAN: Increase Prozac from 10 mg a day to 20 mg a day, Risperdal from 0.5 mg at bedtime to 0.5 mg twice a day given his intermittent psychotic symptoms, Exelon patch from 9.5 mg a day to 13.3 mg a day and then starting in a day or so, we will add Namenda 5 mg twice a day given his memory deficits and symptoms that might additionally be reflective of Lewy body dementia. Make further changes as clinically indicated. CORA PRADHAN MD DR: SINDI/kaden JOB#: [id number] / [id number]
--- NOTE | 2018-07-19 22:39 | PDOC ---
Exam Note: Gadiel Note: Please also refer to the separate dictated note~for this date of service dictated separately.~Patient seen individually. Discussed the patient with Nursing staff reviewed the chart.~Reviewed interim history and current functioning. Reviewed vital signs,~Labs/ Radiology~and current medications noted below. Continue current treatment with the changes noted in the dictated addendum note Assessment: Vital Signs: Vital Signs Date Time Temp Pulse Resp B/P (MAP) Pulse Ox O2 Delivery O2 Flow Rate FiO2 07/19/18 16:45 97.8 101 16 99/62 (74) 97 Room Air I&O Intake and Output 07/19/18 07:01 Intake Total 840 ml Balance 840 ml Intake Oral 840 ml Labs: Laboratory Tests Test 07/19/18 07:24 White Blood Count 8.3 x10^3/uL (4.0-11.0) # Red Blood Count 4.14 x10^6/uL (4.30-5.70) L Hemoglobin 13.1 g/dL (13.0-17.5) Hematocrit 39.2 % (39.0-53.0) Mean Corpuscular Volume 95 fL (79-100) Mean Corpuscular Hemoglobin 32 pg (25-35) Mean Corpuscular Hemoglobin Concent 34 g/dL (31-37) Red Cell Distribution Width 14.9 % (11.5-14.5) H Platelet Count 112 x10^3/uL (140-400) L Neutrophils (%) (Auto) 88 % (31-73) H Lymphocytes (%) (Auto) 4 % (24-48) L Monocytes (%) (Auto) 7 % (0-9) Eosinophils (%) (Auto) 0 % (0-3) Basophils (%) (Auto) 0 % (0-3) Neutrophils # (Auto) 7.3 x10^3uL (1.8-7.7) Lymphocytes # (Auto) 0.4 x10^3/uL (1.0-4.8) L Monocytes # (Auto) 0.6 x10^3/uL (0.0-1.1) Eosinophils # (Auto) 0.0 x10^3/uL (0.0-0.7) Basophils # (Auto) 0.0 x10^3/uL (0.0-0.2) Sodium Level 142 mmol/L (136-145) Potassium Level 4.1 mmol/L (3.5-5.1) Chloride Level 104 mmol/L (98-107) Carbon Dioxide Level 32 mmol/L (21-32) Anion Gap 6 (6-14) Blood Urea Nitrogen 19 mg/dL (8-26) Creatinine 0.8 mg/dL (0.7-1.3) Estimated GFR (Cockcroft-Gault) 95.6 BUN/Creatinine Ratio 24 (6-20) H Glucose Level 90 mg/dL (70-99) Calcium Level 8.9 mg/dL (8.5-10.1) Total Bilirubin 0.5 mg/dL (0.2-1.0) Aspartate Amino Transferase (AST) 30 U/L (15-37) Alanine Aminotransferase (ALT) 22 U/L (16-63) Alkaline Phosphatase 96 U/L (46-116) Total Protein 7.5 g/dL (6.4-8.2) Albumin 3.5 g/dL (3.4-5.0) Albumin/Globulin Ratio 0.9 (1.0-1.7) L Current Medications: Meds: Current Medications Acetaminophen (Tylenol) 650 mg PRN Q6HRS PRN PO PAIN / TEMP Last administered on 06/30/18at 05:35; Start 06/26/18 at 16:45 Multi-Ingredient Ointment (Analgesic [place]) 1 tarik PRN QID PRN TP MUSCLE PAIN; Start 06/26/18 at 16:45 Al Hydroxide/Mg Hydroxide (Mylanta Plus Xs) 15 ml PRN AFTMEALHC PRN PO DYSPEPSIA; Start 06/26/18 at 16:45 Magnesium Hydroxide (Milk Of Magnesia) 2,400 mg PRN QHS PRN PO CONSTIPATION; Start 06/26/18 at 16:45 Phenazopyridine HCl (Pyridium) 100 mg PRN Q8HRS PRN PO URINARY DISCOMFORT; Start 06/26/18 at 18:15 Olanzapine (ZyPREXA ZYDIS) 2.5 mg PRN Q2HR PRN PO psychosis/agitation Last administered on 07/16/18at 17:25; Start 06/26/18 at 18:30 Rivastigmine (Exelon) 1 patch DAILY TD Last administered on 07/05/18at 08:35; Start 1/18/19 at 09:00; Stop 07/05/18 at 11:00; Status DC Rivastigmine (Exelon) 1 patch DAILY TD ; Start 07/06/18 at 09:00; Stop 07/06/18 at 09:00; Status DC Sertraline HCl (Zoloft) 25 mg DAILY PO Last administered on 07/02/18at 09:00; Start 06/28/18 at 09:00; Stop 07/02/18 at 16:42; Status DC Trazodone HCl (Desyrel) 50 mg QHS PO Last administered on 07/19/18 19:34; Start 06/28/18 at 21:00 Trazodone HCl (Desyrel) 50 mg PRN QHS PRN PO INSOMNIA; Start 06/28/18 at 04:30 Vitamin D (Vitamin D3) 50,000 unit WEEKLY PO Last administered on 07/06/18at 08: 51; Start 06/29/18 at 16:15 Cyanocobalamin (Vitamin B-12) 1,000 mcg DAILY IM Last administered on at 07:58; Start 06/30/18 at 09:00; Stop 07/09/18 at 17:55; Status DC Mirtazapine (Remeron) 7.5 mg QHS PO Last administered on 07/02/18 20:49; Start 06/29/18 at 21:00; Stop 07/03/18 at 16:57; Status DC Sertraline HCl (Zoloft) 50 mg DAILY PO Last administered on 07/05/18 08:34; Start 07/03/18 at 09:00; Stop 07/05/18 at 16:43; Status DC Rivastigmine (Exelon) 1 patch DAILY TD Last administered on 07/17/18 08:14; Start 07/03/18 at 09:00; Stop 07/17/18 at 12:49; Status DC Mirtazapine (Remeron) 15 mg QHS PO Last administered on 07/19/18 19:34; Start 07/03/18 at 21:00 Sertraline HCl (Zoloft) 75 mg DAILY PO Last administered on 07/12/18at 07:58; Start 07/06/18 at 09:00; Stop 07/12/18 at 16:55; Status DC Cyanocobalamin (Vitamin B-12) 1,000 mcg QMONTH IM ; Start 08/08/18 at 09:00 Ketorolac Tromethamine (Toradol Im) 60 mg 1X ONCE IM ; Start 07/12/18 at 13:30; Stop 07/12/18 at 13:31; Status DC Ketorolac Tromethamine (Toradol 30mg Vial) 30 mg STK-MED ONCE .ROUTE ; Start 07/12/18 at 13:13; Stop 07/12/18 at 13:15; Status DC Ketorolac Tromethamine (Toradol 30mg Vial) 30 mg STK-MED ONCE .ROUTE Last administered on 07/12/18at 13:28; Start 07/12/18 at 13:15; Stop 07/12/18 at 13:17; Status DC Lorazepam (Ativan) 1 mg 1X ONCE IV Last administered on 07/12/18at 13:45; Start 07/12/18 at 13:45; Stop 07/12/18 at 13:46; Status DC Iohexol (Omnipaque 300 Mg/ml) 75 ml 1X ONCE IV Last administered on 07/12/18at 14:30; Start 07/12/18 at 14:15; Stop 07/12/18 at 14:16; Status DC Ketorolac Tromethamine (Toradol 30mg Vial) 30 mg 1X ONCE IM ; Start 07/12/18 at 13:15; Stop 07/12/18 at 14:25; Status DC Dextrose 1,000 ml @ 250 mls/hr 1X ONCE IV Last administered on 07/12/18at 16:19 ; Start 07/12/18 at 16:00; Stop 07/12/18 at 20:00; Status DC Fluoxetine HCl (PROzac) 10 mg DAILY PO Last administered on 07/17/18at 08:14; Start 07/13/18 at 09:00; Stop 07/17/18 at 12:49; Status DC Quetiapine Fumarate (SEROquel) 25 mg HS PO Last administered on 07/12/18at 20:19 ; Start 07/12/18 at 21:00; Stop 07/13/18 at 20:31; Status DC Risperidone (RisperDAL) 0.25 mg 1X ONCE PO Last administered on 07/13/18 20:49 ; Start 07/13/18 at 20:30; Stop 07/13/18 at 20:33; Status DC Risperidone (RisperDAL) 0.5 mg HS PO Last administered on 07/16/18 21:08; Start 07/14/18 at 21:00; Stop 07/17/18 at 12:49; Status DC Trazodone HCl (Desyrel) 50 mg 1X ONCE PO Last administered on 07/16/18 18:20; Start 07/16/18 at 18:15; Stop 07/16/18 at 18:32; Status DC Olanzapine (ZyPREXA ZYDIS) 2.5 mg 1X ONCE PO Last administered on 07/16/18 18: 20; Start 07/16/18 at 18:15; Stop 07/16/18 at 18:32; Status DC Lorazepam (Ativan) 1 mg DAILY IM Last administered on 07/19/18 11:17; Start 07/16/18 at 18:30 Fluoxetine HCl (PROzac) 20 mg DAILY PO Last administered on 07/19/18 09:35; Start 07/18/18 at 09:00 Risperidone (RisperDAL) 0.5 mg BID PO Last administered on 07/19/18 19:34; Start 07/17/18 at 21:00 Rivastigmine (Exelon 13.3mg) 1 patch DAILY TD Last administered on 07/19/18 09: 36; Start 07/18/18 at 09:00 Memantine (Namenda) 5 mg BID PO ; Start 07/21/18 at 09:00 Active Scripts Active Reported Compazine (Prochlorperazine Maleate) 5 Mg Tablet 5 Mg IVP PRN Q4HRS PRN Phenazopyridine Hcl 100 Mg Tablet 100 Mg PO PRN Q8HRS PRN Ondansetron Hcl 4 Mg/2 Ml Vial (Ondansetron Hcl/Pf) 4 Mg/2 Ml Vial 4 Mg IVP PRN Q6HRS PRN I have reviewed the current psychotropics carefully including drug interactions. Risk benefit ratio favors no change other than as noted in my dictated progress note. Diagnosis: Problems: (1) Unspecified psychosis (2) Anxiety disorder (3) Dementia, vascular, with delusions (4) Dementia, vascular, with depression (5) Dementia in Alzheimer's disease with delusions (6) Dementia in Alzheimer's disease with depression (7) Impulse control disorder (8) Psychosis, atypical CORA PRADHAN MD Jul 19, 2018 22:39
--- NOTE | 2018-07-20 03:39 | PN ---
DATE: 07/18/2018 This late entry for 07/18/2018 covers elements not covered in my initial note. SUBJECTIVE: I met with the patient in the evening. The patient has been somewhat resistive to medications, irritable at times, but no bizarre behaviors noted. He remains on IM Ativan. Slept 6-3/4 hours, withdraws to his room, which is where I met with him. REVIEW OF SYSTEMS: No CV, , pulmonary, eye, ENT system symptoms on review. Reliability poor. MENTAL STATUS EXAM: Oriented to himself. Insight, judgment, recent and remote memory, attention, concentration, fund of knowledge poor, consistent with his diagnosis mentioned in my initial note. PLAN: No change from initial note. MAN Delilah PRADHAN MD DR: SINDI/kaden JOB#: [id number] / [id number]
[2018-07-20 06:38] VITALS: BP 102/65
[2018-07-20] MEDS: FLUoxetine HCL 20 MG CAPSULE PO SCH (07:58)
[2018-07-20] MEDS: risperiDONE 0.5 MG TABLET. PO SCH ×2 (07:58→22:15)
[2018-07-20] MEDS: RIVASTIGMINE 13.3MG PATCH. TD SCH (07:58)
[2018-07-20] MEDS: CHOLECALCIFEROL (VITAMIN D3) 50,000 UNIT CAPSULE PO SCH (07:58)
[2018-07-20 16:46] VITALS: BP 108/62
--- NOTE | 2018-07-20 21:59 | PDOC ---
Exam Note: Gadiel Note: Please also refer to the separate dictated note~for this date of service dictated separately.~Patient seen individually. Discussed the patient with Nursing staff reviewed the chart.~Reviewed interim history and current functioning. Reviewed vital signs,~Labs/ Radiology~and current medications noted below. Continue current treatment with the changes noted in the dictated addendum note Assessment: Vital Signs: Vital Signs Date Time Temp Pulse Resp B/P (MAP) Pulse Ox O2 Delivery O2 Flow Rate FiO2 07/20/18 16:46 98.0 99 16 108/62 (77) 96 07/20/18 06:38 Room Air I&O Intake and Output 07/20/18 07:01 Intake Total 1060 ml Balance 1060 ml Intake Oral 1060 ml Current Medications: Meds: Current Medications Acetaminophen (Tylenol) 650 mg PRN Q6HRS PRN PO PAIN / TEMP Last administered on 06/30/18at 05:35; Start 06/26/18 at 16:45 Multi-Ingredient Ointment (Analgesic [place]) 1 tarik PRN QID PRN TP MUSCLE PAIN; Start 06/26/18 at 16:45 Al Hydroxide/Mg Hydroxide (Mylanta Plus Xs) 15 ml PRN AFTMEALHC PRN PO DYSPEPSIA; Start 06/26/18 at 16:45 Magnesium Hydroxide (Milk Of Magnesia) 2,400 mg PRN QHS PRN PO CONSTIPATION; Start 06/26/18 at 16:45 Phenazopyridine HCl (Pyridium) 100 mg PRN Q8HRS PRN PO URINARY DISCOMFORT; Start 06/26/18 at 18:15 Olanzapine (ZyPREXA ZYDIS) 2.5 mg PRN Q2HR PRN PO psychosis/agitation Last administered on 07/16/18at 17:25; Start 06/26/18 at 18:30 Rivastigmine (Exelon) 1 patch DAILY TD Last administered on 07/05/18at 08:35; Start 06/28/18 at 09:00; Stop 07/05/18 at 11:00; Status DC Rivastigmine (Exelon) 1 patch DAILY TD ; Start 07/06/18 at 09:00; Stop 07/06/18 at 09:00; Status DC Sertraline HCl (Zoloft) 25 mg DAILY PO Last administered on 07/02/18at 09:00; Start 06/28/18 at 09:00; Stop 07/02/18 at 16:42; Status DC Trazodone HCl (Desyrel) 50 mg QHS PO Last administered on 07/19/18 19:34; Start 06/28/18 at 21:00 Trazodone HCl (Desyrel) 50 mg PRN QHS PRN PO INSOMNIA; Start 06/28/18 at 04:30 Vitamin D (Vitamin D3) 50,000 unit WEEKLY PO Last administered on 07/20/18at 07: 58; Start 06/29/18 at 16:15 Cyanocobalamin (Vitamin B-12) 1,000 mcg DAILY IM Last administered on 07:58; Start 06/30/18 at 09:00; Stop 07/09/18 at 17:55; Status DC Mirtazapine (Remeron) 7.5 mg QHS PO Last administered on 07/02/18at 20:49; Start 06/29/18 at 21:00; Stop 07/03/18 at 16:57; Status DC Sertraline HCl (Zoloft) 50 mg DAILY PO Last administered on 07/05/18at 08:34; Start 07/03/18 at 09:00; Stop 07/05/18 at 16:43; Status DC Rivastigmine (Exelon) 1 patch DAILY TD Last administered on 07/17/18at 08:14; Start 07/03/18 at 09:00; Stop 07/17/18 at 12:49; Status DC Mirtazapine (Remeron) 15 mg QHS PO Last administered on 07/19/18 19:34; Start 07/03/18 at 21:00 Sertraline HCl (Zoloft) 75 mg DAILY PO Last administered on 07/12/18 07:58; Start 07/06/18 at 09:00; Stop 07/12/18 at 16:55; Status DC Cyanocobalamin (Vitamin B-12) 1,000 mcg QMONTH IM ; Start 08/08/18 at 09:00 Ketorolac Tromethamine (Toradol Im) 60 mg 1X ONCE IM ; Start 07/12/18 at 13:30; Stop 07/12/18 at 13:31; Status DC Ketorolac Tromethamine (Toradol 30mg Vial) 30 mg STK-MED ONCE .ROUTE ; Start 07/12/18 at 13:13; Stop 07/12/18 at 13:15; Status DC Ketorolac Tromethamine (Toradol 30mg Vial) 30 mg STK-MED ONCE .ROUTE Last administered on 07/12/18at 13:28; Start 07/12/18 at 13:15; Stop 07/12/18 at 13:17; Status DC Lorazepam (Ativan) 1 mg 1X ONCE IV Last administered on 07/12/18at 13:45; Start 07/12/18 at 13:45; Stop 07/12/18 at 13:46; Status DC Iohexol (Omnipaque 300 Mg/ml) 75 ml 1X ONCE IV Last administered on 07/12/18at 14:30; Start 07/12/18 at 14:15; Stop 07/12/18 at 14:16; Status DC Ketorolac Tromethamine (Toradol 30mg Vial) 30 mg 1X ONCE IM ; Start 07/12/18 at 13:15; Stop 07/12/18 at 14:25; Status DC Dextrose 1,000 ml @ 250 mls/hr 1X ONCE IV Last administered on 07/12/18at 16:19 ; Start 07/12/18 at 16:00; Stop 07/12/18 at 20:00; Status DC Fluoxetine HCl (PROzac) 10 mg DAILY PO Last administered on 07/17/18at 08:14; Start 07/13/18 at 09:00; Stop 07/17/18 at 12:49; Status DC Quetiapine Fumarate (SEROquel) 25 mg HS PO Last administered on 07/12/18at 20:19 ; Start 07/12/18 at 21:00; Stop 07/13/18 at 20:31; Status DC Risperidone (RisperDAL) 0.25 mg 1X ONCE PO Last administered on 07/13/18at 20:49 ; Start 07/13/18 at 20:30; Stop 07/13/18 at 20:33; Status DC Risperidone (RisperDAL) 0.5 mg HS PO Last administered on 07/16/18at 21:08; Start 07/14/18 at 21:00; Stop 07/17/18 at 12:49; Status DC Trazodone HCl (Desyrel) 50 mg 1X ONCE PO Last administered on 07/16/18 18:20; Start 07/16/18 at 18:15; Stop 07/16/18 at 18:32; Status DC Olanzapine (ZyPREXA ZYDIS) 2.5 mg 1X ONCE PO Last administered on 07/16/18 18: 20; Start 07/16/18 at 18:15; Stop 07/16/18 at 18:32; Status DC Lorazepam (Ativan) 1 mg DAILY IM Last administered on 07/19/18at 11:17; Start 07/16/18 at 18:30; Stop 07/20/18 at 20:09; Status DC Fluoxetine HCl (PROzac) 20 mg DAILY PO Last administered on 07/20/18 07:58; Start 07/18/18 at 09:00 Risperidone (RisperDAL) 0.5 mg BID PO Last administered on 07/20/18at 07:58; Start 07/17/18 at 21:00 Rivastigmine (Exelon 13.3mg) 1 patch DAILY TD Last administered on 07/20/18at 07: 58; Start 07/18/18 at 09:00 Memantine (Namenda) 5 mg BID PO ; Start 07/21/18 at 09:00 Active Scripts Active Reported Compazine (Prochlorperazine Maleate) 5 Mg Tablet 5 Mg IVP PRN Q4HRS PRN Phenazopyridine Hcl 100 Mg Tablet 100 Mg PO PRN Q8HRS PRN Ondansetron Hcl 4 Mg/2 Ml Vial (Ondansetron Hcl/Pf) 4 Mg/2 Ml Vial 4 Mg IVP PRN Q6HRS PRN I have reviewed the current psychotropics carefully including drug interactions. Risk benefit ratio favors no change other than as noted in my dictated progress note. Diagnosis: Problems: (1) Unspecified psychosis (2) Anxiety disorder (3) Dementia, vascular, with delusions (4) Dementia, vascular, with depression (5) Dementia in Alzheimer's disease with delusions (6) Dementia in Alzheimer's disease with depression (7) Impulse control disorder (8) Psychosis, atypical CORA PRADHAN MD Jul 20, 2018 21:59
[2018-07-20] MEDS: MIRTAZAPINE 15 MG TABLET PO SCH (22:16)
[2018-07-20] MEDS: traZODone 50 MG TABLET. PO SCH (22:16)
--- NOTE | 2018-07-20 23:28 | PN ---
DATE: 07/19/2018 PSYCHIATRIC PROGRESS NOTE This late entry 07/19/2017 covers elements not covered in my initial note. SUBJECTIVE: I met with the patient in the evening. He has been somewhat withdrawn, but compliant with treatment. He continues on IM Ativan scheduled 1 mg daily. We will consider stopping it. Previous night, he was resistive to medications. REVIEW OF SYSTEMS: No CV, , pulmonary, eye, ENT system symptoms on review. MENTAL STATUS EXAM: Oriented to himself and situation. Speech has some latency, often responses monosyllabic. Abstraction fair, computation impaired, language function intact, attention span short. Mood and affect somewhat withdrawn. LABORATORY DATA: Reviewed. IMPRESSION: Unchanged from initial note. PLAN: No change from initial note other than stopping the IM Ativan. MAN Delilah PRADHAN MD DR: SINDI/kaden JOB#: [id number] / [id number]
[2018-07-21 06:30] VITALS: BP 148/86
[2018-07-21 06:49] VITALS: BP 137/67
[2018-07-21] MEDS ORDERED: ACET325T9 PO (07:55)
[2018-07-21] MEDS ORDERED: CHOL500021 PO (07:56)
[2018-07-21] MEDS ORDERED: CYAN10002 IJ (07:57)
[2018-07-21] MEDS ORDERED: MAGN2400 PO (07:59)
[2018-07-21] MEDS ORDERED: MAG-83 PO (07:59)
[2018-07-21] MEDS ORDERED: METH29OI TP (08:00)
[2018-07-21] MEDS ORDERED: FLUO20CA16 PO (08:01)
[2018-07-21] MEDS ORDERED: MIRT15TA PO (08:02)
[2018-07-21] MEDS ORDERED: MEMA10TA PO (08:02)
[2018-07-21] MEDS ORDERED: OLAN5TAB5 PO (08:03)
[2018-07-21] MEDS ORDERED: RIVA1PAT5 TD (08:04)
[2018-07-21] MEDS ORDERED: TRAZ-120 PO ×2 (08:05→08:06)
[2018-07-21] MEDS ORDERED: RISP0.5T24 PO (08:05)
[2018-07-21] MEDS ORDERED: MEMANTINE 5 MG TABLET. PO SCH (09:00)
[2018-07-21 09:59] VITALS: BP 109/63
--- NOTE | 2018-07-21 20:48 | PDOC ---
Exam Note: Gadiel Note: Please also refer to the separate dictated note~for this date of service dictated separately.~Patient seen individually. Discussed the patient with Nursing staff reviewed the chart.~Reviewed interim history and current functioning. Reviewed vital signs,~Labs/ Radiology~and current medications noted below. Continue current treatment with the changes noted in the dictated addendum note Assessment: Vital Signs: Vital Signs Date Time Temp Pulse Resp B/P (MAP) Pulse Ox O2 Delivery O2 Flow Rate FiO2 07/21/18 09:59 100.7 114 20 109/63 (78) 97 07/21/18 06:49 Room Air I&O Intake and Output 07/21/18 07:01 Intake Total 1320 ml Balance 1320 ml Intake Oral 1320 ml Current Medications: Meds: Current Medications Acetaminophen (Tylenol) 650 mg PRN Q6HRS PRN PO PAIN / TEMP Last administered on 06/30/18at 05:35; Start 06/26/18 at 16:45; Stop 07/21/18 at 11:07; Status DC Multi-Ingredient Ointment (Analgesic [place]) 1 tarik PRN QID PRN TP MUSCLE PAIN; Start 06/26/18 at 16:45; Stop 07/21/18 at 11:07; Status DC Al Hydroxide/Mg Hydroxide (Mylanta Plus Xs) 15 ml PRN AFTMEALHC PRN PO DYSPEPSIA; Start 06/26/18 at 16:45; Stop 07/21/18 at 11:07; Status DC Magnesium Hydroxide (Milk Of Magnesia) 2,400 mg PRN QHS PRN PO CONSTIPATION; Start 06/26/18 at 16:45; Stop 07/21/18 at 11:07; Status DC Phenazopyridine HCl (Pyridium) 100 mg PRN Q8HRS PRN PO URINARY DISCOMFORT; Start 06/26/18 at 18:15; Stop 07/21/18 at 11:07; Status DC Olanzapine (ZyPREXA ZYDIS) 2.5 mg PRN Q2HR PRN PO psychosis/agitation Last administered on 07/16/18at 17:25; Start 06/26/18 at 18:30; Stop 07/21/18 at 11:07 ; Status DC Rivastigmine (Exelon) 1 patch DAILY TD Last administered on 07/05/18at 08:35; Start 06/28/18 at 09:00; Stop 07/05/18 at 11:00; Status DC Rivastigmine (Exelon) 1 patch DAILY TD ; Start 07/06/18 at 09:00; Stop 07/06/18 at 09:00; Status DC Sertraline HCl (Zoloft) 25 mg DAILY PO Last administered on 07/02/18at 09:00; Start 06/28/18 at 09:00; Stop 07/02/18 at 16:42; Status DC Trazodone HCl (Desyrel) 50 mg QHS PO Last administered on 07/20/18at 22:16; Start 06/28/18 at 21:00; Stop 07/21/18 at 11:07; Status DC Trazodone HCl (Desyrel) 50 mg PRN QHS PRN PO INSOMNIA; Start 06/28/18 at 04:30 ; Stop 07/21/18 at 11:07; Status DC Vitamin D (Vitamin D3) 50,000 unit WEEKLY PO Last administered on 07/20/18at 07: 58; Start 06/29/18 at 16:15; Stop 07/21/18 at 11:07; Status DC Cyanocobalamin (Vitamin B-12) 1,000 mcg DAILY IM Last administered on at 07:58; Start 06/30/18 at 09:00; Stop 07/09/18 at 17:55; Status DC Mirtazapine (Remeron) 7.5 mg QHS PO Last administered on 07/02/18at 20:49; Start 06/29/18 at 21:00; Stop 07/03/18 at 16:57; Status DC Sertraline HCl (Zoloft) 50 mg DAILY PO Last administered on 07/05/18at 08:34; Start 07/03/18 at 09:00; Stop 07/05/18 at 16:43; Status DC Rivastigmine (Exelon) 1 patch DAILY TD Last administered on 07/17/18at 08:14; Start 07/03/18 at 09:00; Stop 07/17/18 at 12:49; Status DC Mirtazapine (Remeron) 15 mg QHS PO Last administered on 07/20/18at 22:16; Start 07/03/18 at 21:00; Stop 07/21/18 at 11:07; Status DC Sertraline HCl (Zoloft) 75 mg DAILY PO Last administered on 07/12/18at 07:58; Start 07/06/18 at 09:00; Stop 07/12/18 at 16:55; Status DC Cyanocobalamin (Vitamin B-12) 1,000 mcg QMONTH IM ; Start 08/08/18 at 09:00; Stop 08/08/18 at 09:00; Status DC Ketorolac Tromethamine (Toradol Im) 60 mg 1X ONCE IM ; Start 07/12/18 at 13:30; Stop 07/12/18 at 13:31; Status DC Ketorolac Tromethamine (Toradol 30mg Vial) 30 mg STK-MED ONCE .ROUTE ; Start 07/12/18 at 13:13; Stop 07/12/18 at 13:15; Status DC Ketorolac Tromethamine (Toradol 30mg Vial) 30 mg STK-MED ONCE .ROUTE Last administered on 07/12/18at 13:28; Start 07/12/18 at 13:15; Stop 07/12/18 at 13:17; Status DC Lorazepam (Ativan) 1 mg 1X ONCE IV Last administered on 07/12/18at 13:45; Start 07/12/18 at 13:45; Stop 07/12/18 at 13:46; Status DC Iohexol (Omnipaque 300 Mg/ml) 75 ml 1X ONCE IV Last administered on 07/12/18at 14:30; Start 07/12/18 at 14:15; Stop 07/12/18 at 14:16; Status DC Ketorolac Tromethamine (Toradol 30mg Vial) 30 mg 1X ONCE IM ; Start 07/12/18 at 13:15; Stop 07/12/18 at 14:25; Status DC Dextrose 1,000 ml @ 250 mls/hr 1X ONCE IV Last administered on 07/12/18at 16:19 ; Start 07/12/18 at 16:00; Stop 07/12/18 at 20:00; Status DC Fluoxetine HCl (PROzac) 10 mg DAILY PO Last administered on 07/17/18at 08:14; Start 07/13/18 at 09:00; Stop 07/17/18 at 12:49; Status DC Quetiapine Fumarate (SEROquel) 25 mg HS PO Last administered on 07/12/18 20:19 ; Start 07/12/18 at 21:00; Stop 07/13/18 at 20:31; Status DC Risperidone (RisperDAL) 0.25 mg 1X ONCE PO Last administered on 07/13/18 20:49 ; Start 07/13/18 at 20:30; Stop 07/13/18 at 20:33; Status DC Risperidone (RisperDAL) 0.5 mg HS PO Last administered on 07/16/18 21:08; Start 07/14/18 at 21:00; Stop 07/17/18 at 12:49; Status DC Trazodone HCl (Desyrel) 50 mg 1X ONCE PO Last administered on 07/16/18 18:20; Start 07/16/18 at 18:15; Stop 07/16/18 at 18:32; Status DC Olanzapine (ZyPREXA ZYDIS) 2.5 mg 1X ONCE PO Last administered on 07/16/18 18: 20; Start 07/16/18 at 18:15; Stop 07/16/18 at 18:32; Status DC Lorazepam (Ativan) 1 mg DAILY IM Last administered on 07/19/18 11:17; Start 07/16/18 at 18:30; Stop 07/20/18 at 20:09; Status DC Fluoxetine HCl (PROzac) 20 mg DAILY PO Last administered on 07/20/18 07:58; Start 07/18/18 at 09:00; Stop 07/21/18 at 11:07; Status DC Risperidone (RisperDAL) 0.5 mg BID PO Last administered on 07/20/18at 22:15; Start 07/17/18 at 21:00; Stop 07/21/18 at 11:07; Status DC Rivastigmine (Exelon 13.3mg) 1 patch DAILY TD Last administered on 07/20/18 07: 58; Start 07/18/18 at 09:00; Stop 07/21/18 at 11:07; Status DC Memantine (Namenda) 5 mg BID PO ; Start 07/21/18 at 09:00; Stop 07/21/18 at 11: 07; Status DC Active Scripts Active Reported Trazodone Hcl 50 Mg Tablet 1 Tab PO QHS PRN Trazodone Hcl 50 Mg Tablet 1 Tab PO QHS Risperdal (Risperidone) 0.5 Mg Tablet 0.5 Mg PO BID EXELON 13.3mg/24hr (Rivastigmine) 1 Each Patch.td24 1 Patch TD DAILY Zyprexa Zydis (Olanzapine) 5 Mg Tab.rapdis 2.5 Mg PO Q2HR PRN Remeron (Mirtazapine) 15 Mg Tablet 1 Tab PO QHS Namenda (Memantine Hcl) 10 Mg Tablet 5 Mg PO BID Prozac (Fluoxetine Hcl) 20 Mg Capsule 1 Cap PO DAILYWBKFT Analgesic [place] (Methyl Salicylate/Menthol) 28 Gm Oint...g. 1 Applic TP QIDPRN PRN Milk Of Magnesia (Magnesium Hydroxide) 2,400 Mg/10 Ml Oral.susp 2,400 Mg PO HS PRN Adv Antacid-[place]igas Liquid (Mag Hydrox/Al Hydrox/Simeth) 355 Ml Oral.susp 15 Ml PO QID PRN Cyanocobalamin Injection (Cyanocobalamin (Vitamin B-12)) 1,000 Mcg/1 Ml Vial 1, 000 Mcg IJ Q4WK D3-50 (Cholecalciferol (Vitamin D3)) 50,000 Unit Capsule 50,000 Unit PO WEEKLY Tylenol (Acetaminophen) 325 Mg Tablet 650 Mg PO PRN Q6HRS PRN I have reviewed the current psychotropics carefully including drug interactions. Risk benefit ratio favors no change other than as noted in my dictated progress note. Diagnosis: Problems: (1) Psychosis, atypical (2) Impulse control disorder (3) Dementia in Alzheimer's disease with depression (4) Dementia in Alzheimer's disease with delusions (5) Dementia, vascular, with depression (6) Dementia, vascular, with delusions (7) Anxiety disorder CORA PRADHAN MD Jul 21, 2018 20:48
--- NOTE | 2018-07-21 22:07 | DS ---
DATE OF DISCHARGE: 07/21/2018 DISCHARGE SUMMARY/PSYCHIATRIC PROGRESS NOTE This note covers elements not covered in my initial note of 07/21/2018. IDENTIFYING DATA: The patient is a 68-year-old male referred to us from [facility] on account of worsening psychosis, short term memory deficits, delusions. The patient had been living at home, was increasingly confused, unmanageable, went outside in the snow. had to get him in. He was having auditory and visual hallucinations about demons and bad spirits. Details are referred in my initial evaluation. SIGNIFICANT FINDINGS AND CLINICAL COURSE: Following admission, the patient was seen daily individually by myself from a psychiatric standpoint, medical followup per Dr. Ewing. The patient has a fairly significant past history of alcohol abuse and he did have memory deficits, worsening confusion in the evening. Adjustments were made in his psychotropics. He seemed to be responding to a combination of Zyprexa p.r.n., Exelon patch, which was increased to 13.3 mg a day, trazodone 50 mg at bedtime, october repeat x 1; Remeron 15 mg at bedtime, Risperdal 0.5 mg b.i.d., Prozac 20 mg a day, Namenda 5 mg b.i.d. The patient had 2 or 3 episodes of appearing extremely psychotic, dropping himself on the floor, hitting and kicking the malhotra, and banging his head on the floor. He is floridly psychotic at least times, which were mainly in the evening and that is when the Risperdal was increased to help compensate for this. From a psychiatric standpoint, he was showing improvement, but then was febrile, having tachycardia, possible pneumonia, and was transferred to [facility] Medical/Surgical floor per Dr. Aparicio. Prior to discharge on 07/21/2018, does complain of feeling tired. REVIEW OF SYSTEMS: No CV, , GI, eye system symptoms on review. MENTAL STATUS EXAM: Oriented to himself and situation. Speech, low in rate and rhythm, low in volume. Abstraction fair, computation impaired, language function intact, attention span short. Mood and affect somewhat withdrawn. No active suicidal or homicidal ideation prior to discharge. LABORATORY DATA: Reviewed. FINAL DIAGNOSES: Major neurocognitive disorder, multifactorial, possibly due to past alcohol abuse, Alzheimer, vascular with delusion, depression, behavioral disturbance; past history of alcohol abuse and dependence, in partial remission; anxiety disorder, unspecified; tachycardia/febrile, possible pneumonia; impulse control disorder, unspecified; rule out Lewy body dementia. Rest unchanged from admission. DISCHARGE MEDICATIONS: Please refer to the MRAD. DISCHARGE INSTRUCTIONS: Medical followup and psychiatric followup on . Time for discharge day management greater than 30 minutes. MAN Delilah PRADHAN MD DR: SINDI/kaden JOB#: [id number] / [id number]
[2018-08-08] MEDS ORDERED: CYANOCOBALAMIN (VITAMIN B-12) 1,000 MCG/ML VIAL IM SCH (09:00)
--- NOTE | 2018-08-13 09:20 | EKG ---
[facility] [address] [place] [id number] Test Date: 2018-07-11 Test Time: 05:07:26 Pat Name: NICOLE FISHER Department: Room: [address] [place] [address] Gender: Rn First Assistant: : [id number] Requested By: CORA PRADHAN Order Number: [id number] Reading MD: Rosendo Fitch Measurements Intervals Vesta Rate: P: CT: QRS: QRSD: T: QT: QTc: Interpretive Statements Compared to ECG 06/26/2018 17:38:48 NO SIGNIFICANT CHANGES Electronically Signed On 08-13-2018 10:09:57 ROLL SETTER by Rosendo Fitch
--- NOTE | 2018-08-31 10:03 | PN ---
DATE: 07/20/2018 PSYCHIATRIC PROGRESS NOTE This is a late entry, date of service 07/20/2018, and covers elements not covered in my initial note. SUBJECTIVE: I met with the patient in the evening. The patient slept 8-1/2 hours previous night. He remains somewhat withdrawn, not very interactive, does come out to some group activities. He has not been agitated. REVIEW OF SYSTEMS: No CV, , pulmonary, eye, ENT system symptoms on review. MENTAL STATUS EXAM: Oriented to himself and situation. Speech moderate latency, often responses monosyllabic. Abstraction fair, computation impaired, short term memory is impaired, less psychotic. LABORATORY DATA: Reviewed. IMPRESSION: Unchanged from initial note. PLAN: Stop the IM Ativan. Continue rest of the psychotropics including Zyprexa p.r.n.; Exelon patch 13.3 mg a day; trazodone 50 mg at bedtime, may repeat x 1; Remeron 15 mg at bedtime; Risperdal 0.5 mg b.i.d.; Prozac 20 mg a day; and we have started Namenda 5 mg b.i.d., which we will initiate on 07/21/2018. Rest unchanged from initial note. CORA PRADHAN MD DR: SINDI/kaden JOB#: [id number] / [id number]
== END 2018-07-21 11:07 | disposition short-term general hospital (02) | DRG 56 ==
LOC: GEROPSY 16:12
PROVIDERS: ADMIT Psychiatry & Neurology Psychiatry; ATTEND Psychiatry & Neurology Psychiatry
DX: G30.9 Alzheimer's disease, unspecified (principal); J18.9 Pneumonia, unspecified organism; F01.51 Vascular dementia, unspecified severity, with behavioral disturbance; F23 Brief psychotic disorder; F32.3 Major depressive disorder, single episode, severe with psychotic features; F10.239 Alcohol dependence with withdrawal, unspecified; F63.9 Impulse disorder, unspecified; F41.9 Anxiety disorder, unspecified; E53.8 Deficiency of other specified B group vitamins; F02.80 Dementia in other diseases classified elsewhere, unspecified severity, without behavioral disturbance, psychotic disturbance, mood disturbance, and anxiety; Z85.048 Personal history of other malignant neoplasm of rectum, rectosigmoid junction, and anus; Z91.14 Patient's other noncompliance with medication regimen
CPT/HCPCS: 36415; 70450; 74177; 80053; 80061; 81001; 82306; 82550; 82607; 82947; 83540; 83550; 83605; 83615; 83735; 84436; 84443; 84480; 84484; 84550; 85025; 85027; 85651; 86140; 86592; 87086; 93005; J1885; J2060; J3420; Q9967

== ENCOUNTER 2018-07-21 11:15 | Inpatient (IN) | payer MEDICARE, MEDICAID ==
[~2018-07-21] VITALS: Ht 165.1 cm; Wt 50.9 kg
[~2018-07-21 11:15] MED LIST: ACET325T9 PO; CHOL500021 PO; CYAN10002 IJ; FLUO20CA16 PO; MAG-83 PO; MAGN2400 PO; MEMA10TA PO; METH29OI TP; MIRT15TA PO; OLAN5TAB5 PO; ONDA4VIA56 IVP; PHEN-443 PO; PROC5TAB34 IVP; RISP0.5T24 PO; RIVA1PAT5 TD; TRAZ-120 PO
[2018-07-21 11:19] VITALS: BP 126/72
[2018-07-21] MEDS ORDERED: MAG HYDROX/AL HYDROX/SIMETH 30 ML ORAL.SUSP PO PRN (11:30)
[2018-07-21] MEDS ORDERED: METHYL SALICYLATE/MENTHOL TOPICAL OINTMENT 29GM TUBE. TP PRN (11:30)
[2018-07-21] MEDS ORDERED: MAGNESIUM HYDROXIDE 2,400 MG/30 ML ORAL.SUSP. PO PRN (12:00)
[2018-07-21] MEDS ORDERED: traZODone 50 MG TABLET. PO PRN (12:15)
[2018-07-21] MEDS: IPRATRPIUM/ALBUTEROL 0.5/2.5MG 3 ML NEBU. NEB SCH ×3 (13:43→20:34)
[2018-07-21 13:47] LABS: ALBUMIN 2.8 g/dL (3.4-5.0); ALBUMIN/GLOBULIN RATIO 0.7 (1.0-1.7); CALCIUM 8.2 mg/dL (8.5-10.1); CREATININE 0.8 mg/dL (0.7-1.3); GFR 95.6; POTASSIUM 3.7 mmol/L (3.5-5.1); TOTAL BILIRUBIN 0.4 mg/dL (0.2-1.0)
[2018-07-21] MEDS: IV NORMAL SALINE 1,000ML 1,000 ML IV SCH (15:15)
[2018-07-21 15:55] VITALS: BP 113/65
--- NOTE | 2018-07-21 17:40 | HP ---
ADMIT DATE: 07/21/2018 HISTORY OF PRESENT ILLNESS: The patient is a 68-year-old gentleman from the [facility] was running in a temperature over 100 degrees. He was having some difficulty in breathing. He was admitted to the medical surgical floor because of this difficulty in breathing as well as the fact that the patient had these problems and was possibly a source of infection to the patient on the floor itself as well as to give him breathing treatments and the like. PAST MEDICAL HISTORY: Has dementia, cardiac disorders, history of DVT, history of rectal cancer, psychiatric problems. The patient had problems with alcoholism and sober for the last 9 months. He has had clotting issues and has an IVC and his influenza vaccination is up to date. No knowledge of his pneumonia vaccination. ALLERGIES: He has no known allergies. MEDICATIONS: List has been reviewed. It is in the chart and some of the medications are noted from the [facility] there. FAMILY HISTORY: Unremarkable. SOCIAL HISTORY: As indicated and sober for the last several months. He was a former smoker, have been smoking here recently. The patient no listed of a Code one way or the other. The patient in turn review of systems outside of some shortness of breath and coughing. The patient denies any other medical issues. Denies chest pain, headaches, visual changes, blurred vision, double vision. Denies any melena, hematochezia, or hematemesis presently. PHYSICAL EXAMINATION: GENERAL: He is a very pleasant gentleman, very cachectic, thin-appearing. VITAL SIGNS: Blood pressure 113/60, respiratory rate 24, pulse 80, afebrile. HEENT: The patient's head was atraumatic, normocephalic. Eyes: PERRLA without jaundice. Mouth and throat were normal. NECK: Supple, without JVD, carotid bruits, or thyromegaly. LUNGS: Diminished throughout, poor movement of air throughout, probably emphysematous. CARDIOVASCULAR: Regular sinus rhythm. ABDOMEN: Soft, nontender, no rebound or guarding. Positive bowel sounds, no hepatosplenomegaly noted. Scaphoid abdomen. EXTREMITIES: No clubbing, cyanosis or edema. SKIN: Intact. LABORATORY DATA: The patient's electrolytes are normal except for albumin low at 2.8. A CBC was basically unremarkable. He had a white count of 8 recently. Platelets slightly low at 112. Sed rate of 21. Urine from the was unremarkable. Serology, I was checking for flu, he did have a positive D-dimer; however, CTA will be obtained for him on that to be on the safe side with his history of cancer, increased risk for clots obviously. In any case, the patient was admitted for acute respiratory tract infection with elevated temperature, history of rectal cancer. Other labs are still pending on the gentleman in [id number] protein malnutrition, thrombocytopenia, elevated D-dimer. CANDICE GREEN MD DR: JACINDA/kaden JOB#: [id number] / [id number]
[2018-07-21] MEDS: AZITHROMYCIN 250 MG TABLET. PO SCH (18:32)
[2018-07-21 19:04] VITALS: BP 110/64
[2018-07-21 19:07] LABS: BASO % 0 % (0-3); EOS % 0 % (0-3); HEMATOCRIT 34.6 % (39.0-53.0); HEMOGLOBIN 11.5 g/dL (13.0-17.5); LYMPH # 0.4 x10^3/uL (1.0-4.8); LYMPH % 5 % (24-48); MEAN CORPUSCULAR HEMOGLOBIN 32 pg (25-35); MEAN CORPUSCULAR HGB CONC 33 g/dL (31-37); MEAN CORPUSCULAR VOLUME 95 fL (79-100); MONO # 0.6 x10^3/uL (0.0-1.1); MONO % 10 % (0-9); NEUT # 5.5 x10^3uL (1.8-7.7); NEUT % 84 % (31-73); PLATELET COUNT 114 x10^3/uL (140-400); RED BLOOD COUNT 3.65 x10^6/uL (4.30-5.70); RED CELL DISTRIBUTION WIDTH 15.2 % (11.5-14.5); WHITE BLOOD COUNT 6.5 x10^3/uL (4.0-11.0)
[2018-07-21] MEDS ORDERED: IPRATRPIUM/ALBUTEROL 0.5/2.5MG 3 ML NEBU. NEB SCH (21:00)
[2018-07-21] MEDS: traZODone 50 MG TABLET. PO SCH (21:25)
[2018-07-21] MEDS: ACETAMINOPHEN 325 MG TABLET PO PRN (21:25)
[2018-07-21] MEDS: risperiDONE 0.5 MG TABLET. PO SCH (21:25)
[2018-07-21] MEDS: MEMANTINE 5 MG TABLET. PO SCH (21:25)
[2018-07-21] MEDS: MIRTAZAPINE 15 MG TABLET PO SCH (21:25)
[2018-07-21] MEDS: HEPARIN for SUB-Q USE 5,000 UNIT/ML VIAL. SQ SCH (21:52)
[2018-07-21 22:54] VITALS: BP 93/54
[2018-07-22] MEDS: IV NORMAL SALINE 1,000ML 1,000 ML IV SCH (00:50)
[2018-07-22] MEDS: HEPARIN for SUB-Q USE 5,000 UNIT/ML VIAL. SQ SCH ×3 (05:56→20:32)
[2018-07-22 06:06] VITALS: BP 133/84
[2018-07-22 06:41] LABS: BASO % 0 % (0-3); EOS % 1 % (0-3); HEMATOCRIT 33.3 % (39.0-53.0); LYMPH # 0.5 x10^3/uL (1.0-4.8); LYMPH % 12 % (24-48); MEAN CORPUSCULAR HEMOGLOBIN 31 pg (25-35); MEAN CORPUSCULAR HGB CONC 33 g/dL (31-37); MEAN CORPUSCULAR VOLUME 95 fL (79-100); MONO # 0.6 x10^3/uL (0.0-1.1); MONO % 12 % (0-9); NEUT # 3.5 x10^3uL (1.8-7.7); NEUT % 75 % (31-73); PLATELET COUNT 107 x10^3/uL (140-400); RED BLOOD COUNT 3.49 x10^6/uL (4.30-5.70); RED CELL DISTRIBUTION WIDTH 15.6 % (11.5-14.5); WHITE BLOOD COUNT 4.7 x10^3/uL (4.0-11.0)
[2018-07-22] MEDS ORDERED: IOHEXOL 350 MG/ML 100 ML VIAL. IV ONE (08:00)
--- NOTE | 2018-07-22 08:05 | RAD ---
Portable chest, 07/21/2018: HISTORY: Upper respiratory infection No previous chest radiographs are available at this time for comparison purposes. A right Port-A-Cath extends into the superior vena cava. The heart size is normal. There is calcific plaquing of the aorta. There are streaky bibasilar pulmonary opacities, left greater than right. These are predominantly interstitial in nature. The upper lung cook are clear. There is no evidence of pleural fluid. IMPRESSION: Bibasilar opacities, left greater than right, suggesting pneumonia, although there may be an underlying component of fibrosis. Electronically signed by: Isai Kaplan MD (07/22/2018 8:01 AM) [facility]
--- NOTE | 2018-07-22 08:43 | RAD ---
Examination: CT angiography chest HISTORY: History of elevated d-dimer COMPARISON: None available Technique: Axial CT angiographic images of the chest were performed with IV contrast. Coronal sagittal 3-D MIP reformats are performed Exposure: One or more of the following individualized dose reduction techniques were utilized for this examination: 1. Automated exposure control 2. Adjustment of the mA and/or kV according to patient size 3. Use of iterative reconstruction technique FINDINGS: The visualized thyroid gland grossly appears unremarkable. Central airways are patent. Mild cardiomegaly The ascending aorta measures 3.1 cm in transverse dimension. Coronary artery calcifications identified. There is no evidence of filling defect identified in the main pulmonary arterial trunk and right and left main pulmonary arteries and the visualized lobar branch of the pulmonary arteries. The evaluation the distal segmental branch of the pulmonary arteries is limited. Left lung base moderate consolidation changes with air bronchograms identified with patchy bibasilar lung airspace opacity likely atelectasis or infiltrates. The visualized liver, spleen, adrenals grossly appears unremarkable. Mild degenerative changes thoracic spine. IMPRESSION: 1. No evidence of central pulmonary embolism. Evaluation of the distal segmental branches of the pulmonary arteries is limited. 2. Moderate left lung base consolidation changes with air bronchograms and patchy bibasilar lung airspace opacities likely atelectasis or pneumonia or aspiration. Follow-up to resolution. 3. Coronary artery calcifications. Electronically signed by: Gage Womack MD (07/22/2018 8:38 AM) [place] [id number]
[2018-07-22] MEDS: risperiDONE 0.5 MG TABLET. PO SCH ×2 (09:03→20:31)
[2018-07-22] MEDS: AZITHROMYCIN 250 MG TABLET. PO SCH (09:03)
[2018-07-22] MEDS: FLUoxetine HCL 20 MG CAPSULE PO SCH (09:03)
[2018-07-22] MEDS: MEMANTINE 5 MG TABLET. PO SCH ×2 (09:03→20:31)
[2018-07-22] MEDS: RIVASTIGMINE 13.3MG PATCH. TD SCH (09:04)
[2018-07-22 09:47] LABS: INFLUENZA A PATIENT POSITIVE (NEGATIVE); INFLUENZA B PATIENT NEGATIVE (NEGATIVE)
[2018-07-22] MEDS: IPRATRPIUM/ALBUTEROL 0.5/2.5MG 3 ML NEBU. NEB SCH ×3 (10:44→20:28)
[2018-07-22 11:15] VITALS: BP 107/64
[2018-07-22] MEDS ORDERED: VANCOMYCIN PER PHARMACY MC PRN (12:45)
[2018-07-22 12:56] LABS: BACTERIA,URINE 0 /HPF (0-FEW); BILIRUBIN,URINE NEG (NEG); CLARITY,URINE CLEAR; COLOR,URINE YELLOW; GLUCOSE,URINE NEG (NEG); NITRITE,URINE NEG (NEG); RBC,URINE 0 /HPF (0-2); SQUAMOUS EPITHELIAL CELL,UR OCC /LPF; UROBILINOGEN,URINE 0.2 mg/dL (0.2 mg/dL); WBC,URINE 0 /HPF (0-4)
[2018-07-22] MEDS: OSELTAMIVIR 75 MG CAPSULE PO SCH ×2 (13:58→20:31)
[2018-07-22] MEDS: PIPERACILLIN/TAZOBACTAM 3.375 GM in IV NORMAL SALINE 50ML 50 ML IV SCH ×2 (13:58→20:30)
[2018-07-22] MEDS ORDERED: VANCOMYCIN 1.25 GM in IV NORMAL SALINE 250ML 250 ML IV ONE (14:00)
--- NOTE | 2018-07-22 15:03 | PN ---
DATE: 07/22/2018 SUBJECTIVE: The patient is a 68-year-old male patient who was transferred from [facility] as he was febrile and short of breath. He was admitted to [address] [place] [address] with healthcare-associated pneumonia, was started initially on ceftriaxone and Zithromax. His nasal swab today came back positive for influenza A and given that he came from upstairs, I changed his IV antibiotic due to healthcare-associated pneumonia and therefore, he was started on Zosyn and vancomycin. OBJECTIVE: GENERAL: When I saw him today, he looked well and was clearly in no apparent respiratory distress, pale, cachectic, but no jaundice, cyanosis, lymphadenopathy or thyromegaly. No jugular venous distension. No lower limb edema. VITAL SIGNS: His heart rate was 76, blood pressure was 107/64, temperature was 98.8, respiratory rate 20, and oxygen saturation was 94%. HEAD, EYES, EARS, NOSE AND THROAT: Showed normocephalic, atraumatic. NECK: Supple. HEART: Showed normal first and second heart sounds. No gallop, rub or murmur. CHEST: Clear to auscultation. No crepitation or rhonchi. ABDOMEN: Distended, soft, nontender. NEUROLOGIC: He was awake, alert, responding appropriately. All cranial nerves intact. He moves extremities without difficulty. He ambulates without assistance or assistive devices. His intake over the last 24 hours was 1980. No output was recorded. LABORATORY DATA: As of yesterday showed a serum sodium 141, potassium 3.7, chloride 103, bicarbonate 30, anion gap of 8, BUN 19, creatinine 0.8, estimated GFR was 96 mL per minute, his glucose 126, lactic acid was 0.7, calcium was 8.2. Total bilirubin, AST, ALT, alkaline phosphatase were normal. Total protein was 7, albumin 2.8. Procalcitonin was 1.12 ng/mL. His white cell count was 4700, hemoglobin 11, hematocrit 33, MCV was 95, and platelet count of 107,000. ASSESSMENT: 1. Sepsis, likely due to healthcare-associated pneumonia. 2. Influenza. The patient was positive for influenza A. PLAN: My plan is to switch his IV antibiotic to Zosyn and vancomycin, start him on Tamiflu at 75 mg twice a day. Repeat his labs tomorrow and follow him closely. I do not think he needs IV fluid since he is hemodynamically stable. ODALYS RENEE MD DR: ALBARO/kaden JOB#: [id number] / [id number]
[2018-07-22 19:47] VITALS: BP 117/70
[2018-07-22] MEDS: ACETAMINOPHEN 325 MG TABLET PO PRN (20:30)
[2018-07-22] MEDS: LACTOBACILLUS RHAMNOSUS GG 1 CAPSULE. PO SCH (20:30)
[2018-07-22] MEDS: traZODone 50 MG TABLET. PO SCH (20:31)
[2018-07-22] MEDS: MIRTAZAPINE 15 MG TABLET PO SCH (20:31)
[2018-07-22] MEDS ORDERED: OSELTAMIVIR 75 MG CAPSULE PO SCH (21:00)
[2018-07-23 02:35] VITALS: BP 114/66
[2018-07-23] MEDS: PIPERACILLIN/TAZOBACTAM 3.375 GM in IV NORMAL SALINE 50ML 50 ML IV SCH ×3 (04:16→21:08)
[2018-07-23] MEDS: IPRATRPIUM/ALBUTEROL 0.5/2.5MG 3 ML NEBU. NEB SCH ×4 (05:21→21:05)
[2018-07-23 05:45] VITALS: BP 125/71
[2018-07-23] MEDS: HEPARIN for SUB-Q USE 5,000 UNIT/ML VIAL. SQ SCH ×3 (05:45→21:09)
[2018-07-23 06:34] LABS: CALCIUM 7.8 mg/dL (8.5-10.1); CREATININE 0.9 mg/dL (0.7-1.3); GFR 83.4; POTASSIUM 3.3 mmol/L (3.5-5.1)
[2018-07-23] MEDS ORDERED: POTASSIUM CHLORIDE 20 MEQ TABLET.ER. PO ONE (07:15)
[2018-07-23] MEDS: RIVASTIGMINE 13.3MG PATCH. TD SCH (08:28)
[2018-07-23] MEDS: LACTOBACILLUS RHAMNOSUS GG 1 CAPSULE. PO SCH ×2 (08:28→19:25)
[2018-07-23] MEDS: MEMANTINE 5 MG TABLET. PO SCH ×2 (08:28→19:25)
[2018-07-23] MEDS: FLUoxetine HCL 20 MG CAPSULE PO SCH (08:28)
[2018-07-23] MEDS: risperiDONE 0.5 MG TABLET. PO SCH ×2 (08:29→19:27)
[2018-07-23] MEDS: OSELTAMIVIR 75 MG CAPSULE PO SCH ×2 (08:29→19:25)
[2018-07-23 10:46] VITALS: BP 94/57
[2018-07-23] MEDS: VANCOMYCIN 1 GM in IV NORMAL SALINE 250ML 250 ML IV SCH (13:13)
[2018-07-23 15:31] VITALS: BP 100/50
--- NOTE | 2018-07-23 16:47 | PN ---
DATE: 07/23/2018 SUBJECTIVE: The patient is resting slightly propped up in bed, in no apparent distress. He is definitely more awake, alert, continued to have some cough with scanty sputum. He has had no fever. The nursing staff said he seemed to be much better. He is now up and about, and resting slightly this morning and his appetite has improved. PHYSICAL EXAMINATION: GENERAL: When I examined him, he looked pale, cachectic, no jaundice, cyanosis, or thyromegaly. No jugular venous distension. No limb edema. VITAL SIGNS: His heart rate was 68, blood pressure was 94/57, temperature was 97.4, respiratory rate was 16, and oxygen saturation was 97%. HEAD, EYES, EARS, NOSE AND THROAT: Showed normocephalic, atraumatic. NECK: Supple. HEART: Showed normal first and second heart sounds. No gallop, rub or murmur. CHEST: Clear to auscultation. No crepitation or rhonchi. ABDOMEN: Scaphoid, soft, nontender. NEUROLOGIC: He is more awake, alert, responding appropriately. He moves extremities without difficulty, ambulates without assistance or assistive devices. His intake over the last 24 hours was 1980. No output was recorded. LABORATORY DATA: As of this morning showed a serum sodium 145, potassium 3.3, chloride 109, bicarbonate 30, anion gap of 6, BUN 19, creatinine 0.9, estimated GFR was 83 mL per minute, his glucose was 84, calcium was 7.8. His white cell count was 4700, hemoglobin 11, hematocrit 33, MCV 95, and platelet count of 107,000. His influenza A was positive, B was negative and mycoplasma serology was negative. His nasal screen for MRSA by PCR was negative. Urinalysis essentially unremarkable. ASSESSMENT AND PLAN: 1. Healthcare-associated pneumonia with the resultant sepsis. 2. Influenza A. Plan is to continue with IV antibiotic in the form of Zosyn and vancomycin, start him on Tamiflu 75 mg twice a day, continue for 4 more days. Once we have the culture, we will adjust antibiotic accordingly. ODALYS RENEE MD DR: ALBARO/kaden JOB#: [id number] / [id number]
[2018-07-23 19:18] VITALS: BP 109/63
[2018-07-23] MEDS: MIRTAZAPINE 15 MG TABLET PO SCH (19:25)
[2018-07-23] MEDS: traZODone 50 MG TABLET. PO SCH (19:25)
[2018-07-24] MEDS: PIPERACILLIN/TAZOBACTAM 3.375 GM in IV NORMAL SALINE 50ML 50 ML IV SCH ×2 (05:18→14:10)
[2018-07-24] MEDS: HEPARIN for SUB-Q USE 5,000 UNIT/ML VIAL. SQ SCH ×4 (05:21→22:00)
[2018-07-24] MEDS: IPRATRPIUM/ALBUTEROL 0.5/2.5MG 3 ML NEBU. NEB SCH ×4 (05:22→21:55)
[2018-07-24 05:37] VITALS: BP 106/64
[2018-07-24] MEDS: LACTOBACILLUS RHAMNOSUS GG 1 CAPSULE. PO SCH ×2 (08:09→21:54)
[2018-07-24] MEDS: risperiDONE 0.5 MG TABLET. PO SCH ×2 (08:09→21:53)
[2018-07-24] MEDS: OSELTAMIVIR 75 MG CAPSULE PO SCH ×2 (08:09→21:53)
[2018-07-24] MEDS: MEMANTINE 5 MG TABLET. PO SCH ×2 (08:09→21:53)
[2018-07-24] MEDS: FLUoxetine HCL 20 MG CAPSULE PO SCH (08:09)
[2018-07-24] MEDS: RIVASTIGMINE 13.3MG PATCH. TD SCH (08:10)
[2018-07-24 10:38] VITALS: BP 109/63
[2018-07-24 14:34] LABS: VANC TR 3.4 mcg/mL (10.0-20.0)
[2018-07-24] MEDS: VANCOMYCIN 1 GM in IV NORMAL SALINE 250ML 250 ML IV SCH (14:48)
[2018-07-24 15:11] LABS: CALCIUM 8.2 mg/dL (8.5-10.1); CREATININE 0.8 mg/dL (0.7-1.3); GFR 95.6; POTASSIUM 4.2 mmol/L (3.5-5.1)
[2018-07-24 18:40] VITALS: BP 135/70
--- NOTE | 2018-07-24 18:49 | PDOC ---
Exam Note: Gadiel Note: Please also refer to the separate dictated note~for this date of service dictated separately.~Patient seen individually. Discussed the patient with Nursing staff reviewed the chart.~Reviewed interim history and current functioning. Reviewed vital signs,~Labs/ Radiology~and current medications noted below. Continue current treatment with the changes noted in the dictated addendum note Assessment: Vital Signs: Vital Signs Date Time Temp Pulse Resp B/P (MAP) Pulse Ox O2 Delivery O2 Flow Rate FiO2 07/24/18 18:40 97.1 69 20 135/70 (91) 100 Room Air I&O Intake and Output 07/24/18 07:00 Intake Total 1100 ml Balance 1100 ml Intake Oral 1020 ml IV Total 80 ml Labs: Laboratory Tests Test 07/24/18 14:10 Sodium Level 144 mmol/L (136-145) Potassium Level 4.2 mmol/L (3.5-5.1) Chloride Level 107 mmol/L (98-107) Carbon Dioxide Level 32 mmol/L (21-32) Anion Gap 5 (6-14) L Blood Urea Nitrogen 20 mg/dL (8-26) Creatinine 0.8 mg/dL (0.7-1.3) Estimated GFR (Cockcroft-Gault) 95.6 Glucose Level 106 mg/dL (70-99) H Calcium Level 8.2 mg/dL (8.5-10.1) L Vancomycin Level Trough 3.4 mcg/mL (10.0-20.0) L Vancomycin Last Dose Date 07/23/18 Vancomycin Last Dose Time 1400 Current Medications: Meds: Current Medications Albuterol/ Ipratropium (Duoneb) 3 ml RTQID NEB Last administered on 07/24/18at 05:22; Start 07/21/18 at 12:00 Acetaminophen (Tylenol) 650 mg PRN Q6HRS PRN PO PAIN / TEMP Last administered on 07/22/18at 20:30; Start 07/21/18 at 11:30 Vitamin D (Vitamin D3) 50,000 unit WEEKLY PO ; Start 07/27/18 at 09:00 Cyanocobalamin (Vitamin B-12) 1,000 mcg Q4WK IM ; Start 08/08/18 at 09:00 Al Hydroxide/Mg Hydroxide (Mylanta Plus Xs) 15 ml QID PRN PO DYSPEPSIA; Start 07/21/18 at 11:30 Multi-Ingredient Ointment (Analgesic [place]) 1 tarik QIDPRN PRN TP MUSCLE PAIN; Start 07/21/18 at 11:30 Olanzapine (ZyPREXA ZYDIS) 2.5 mg PRN Q2HR PRN PO PSYCHOSIS; Start 07/21/18 at 11:30 Rivastigmine (Exelon 13.3mg) 1 patch DAILY TD Last administered on 07/24/18at 08 :10; Start 07/22/18 at 09:00 Fluoxetine HCl (PROzac) 20 mg DAILYWBKFT PO Last administered on 07/24/18 08: 09; Start 07/22/18 at 08:00 Magnesium Hydroxide (Milk Of Magnesia) 2,400 mg PRN QHS PRN PO CONSTIPATION; Start 07/21/18 at 12:00 Memantine (Namenda) 5 mg BID PO Last administered on 07/24/18at 08:09; Start 03/29 at 21:00 Mirtazapine (Remeron) 15 mg QHS PO Last administered on 07/23/18at 19:25; Start 07/21/18 at 21:00 Risperidone (RisperDAL) 0.5 mg BID PO Last administered on 07/24/18 08:09; Start 07/21/18 at 21:00 Trazodone HCl (Desyrel) 50 mg QHS PO Last administered on 07/23/18at 19:25; Start 07/21/18 at 21:00 Trazodone HCl (Desyrel) 50 mg PRN QHS PRN PO INSOMNIA; Start 07/21/18 at 12:15 Sodium Chloride 1,000 ml @ 75 mls/hr [id number] IV Last administered on at 00:50; Start 07/21/18 at 11:30; Stop 07/22/18 at 12:40; Status DC Albuterol/ Ipratropium (Duoneb) 3 ml TID NEB ; Start 07/21/18 at 21:00; Status UNV Azithromycin (Zithromax) 500 mg DAILY PO Last administered on 07/22/18at 09:03; Start 07/21/18 at 18:00; Stop 07/22/18 at 12:37; Status DC Ceftriaxone Sodium 1 gm/ Sodium Chloride 50 ml @ 100 mls/hr Q24H IV Last administered on 07/21/18at 21:30; Start 07/21/18 at 21:30; Stop 07/22/18 at 12:37 ; Status DC Heparin Sodium (Porcine) (Heparin Sodium) 5,000 unit Q8HRS SQ Last administered on 07/24/18at 14:49; Start 07/21/18 at 22:00 Iohexol (Omnipaque 350 Mg/ml) 100 ml 1X ONCE IV Last administered on at 08:06; Start 07/22/18 at 08:00; Stop 07/22/18 at 08:01; Status DC Lactobacillus Rhamnosus (Culturelle) 1 cap BID PO Last administered on at 08:09; Start 07/22/18 at 21:00 Piperacillin Sod/ Tazobactam Sod 3.375 gm/Sodium Chloride 50 ml @ 100 mls/hr Q8H IV Last administered on 07/24/18at 14:10; Start 07/22/18 at 12:45; Stop at 15:07; Status DC Vancomycin HCl (Vanco Per Pharmacy) 1 each PRN DAILY PRN MC SEE COMMENTS Last administered on 07/22/18at 13:07; Start 07/22/18 at 12:45; Stop 07/24/18 at 15:20 ; Status DC Oseltamivir Phosphate (Tamiflu) 75 mg BID PO ; Start 07/22/18 at 21:00; Stop 04/29 at 21:00; Status DC Oseltamivir Phosphate (Tamiflu) 75 mg BID PO Last administered on 07/24/18at 08: 09; Start 07/22/18 at 12:45; Stop 07/27/18 at 12:44 Vancomycin HCl 1.25 gm/Sodium Chloride 250 ml @ 166.667 mls/hr 1X ONCE IV Last administered on 07/22/18at 13:58; Start 07/22/18 at 14:00; Stop 07/22/18 at 15:29; Status DC Vancomycin HCl 1 gm/Sodium Chloride 250 ml @ 250 mls/hr Q24H IV Last administered on 07/24/18at 14:48; Start 07/23/18 at 14:00; Stop 07/24/18 at 15:07 ; Status DC Vancomycin HCl (Vancomycin Trough Level) 1 each 1X ONCE MC ; Start 07/24/18 at 13:30; Stop 07/24/18 at 13:31; Status DC Potassium Chloride (Klor-Con) 40 meq 1X ONCE PO Last administered on at 08:28; Start 07/23/18 at 07:15; Stop 07/23/18 at 07:18; Status DC Amoxicillin/ Clavulanate Potassium (Augmentin 500/ 125mg) 1 tab BID PO ; Start 07/24/18 at 21:00 Active Scripts Active Reported Trazodone Hcl 50 Mg Tablet 1 Tab PO QHS PRN Trazodone Hcl 50 Mg Tablet 1 Tab PO QHS Risperdal (Risperidone) 0.5 Mg Tablet 0.5 Mg PO BID EXELON 13.3mg/24hr (Rivastigmine) 1 Each Patch.td24 1 Patch TD DAILY Zyprexa Zydis (Olanzapine) 5 Mg Tab.rapdis 2.5 Mg PO Q2HR PRN Remeron (Mirtazapine) 15 Mg Tablet 1 Tab PO QHS Namenda (Memantine Hcl) 10 Mg Tablet 5 Mg PO BID Prozac (Fluoxetine Hcl) 20 Mg Capsule 1 Cap PO DAILYWBKFT Analgesic [place] (Methyl Salicylate/Menthol) 28 Gm Oint...g. 1 Applic TP QIDPRN PRN Milk Of Magnesia (Magnesium Hydroxide) 2,400 Mg/10 Ml Oral.susp 2,400 Mg PO HS PRN Adv Antacid-Antigas Liquid (Mag Hydrox/Al Hydrox/Simeth) 355 Ml Oral.susp 15 Ml PO QID PRN Cyanocobalamin Injection (Cyanocobalamin (Vitamin B-12)) 1,000 Mcg/1 Ml Vial 1, 000 Mcg IJ Q4WK D3-50 (Cholecalciferol (Vitamin D3)) 50,000 Unit Capsule 50,000 Unit PO WEEKLY Tylenol (Acetaminophen) 325 Mg Tablet 650 Mg PO PRN Q6HRS PRN I have reviewed the current psychotropics carefully including drug interactions. Risk benefit ratio favors no change other than as noted in my dictated progress note. Diagnosis: Problems: (1) Psychosis, atypical (2) Impulse control disorder (3) Dementia in Alzheimer's disease with depression (4) Dementia in Alzheimer's disease with delusions (5) Dementia, vascular, with depression (6) Dementia, vascular, with delusions (7) Anxiety disorder CORA PRADHAN MD Jul 24, 2018 18:49
--- NOTE | 2018-07-24 19:26 | PN ---
DATE: 07/24/2018 SUBJECTIVE: The patient is sitting on the edge of the bed comfortably, in no apparent distress. Nursing staff stated that he is doing well, up and about. He is eating and drinking. He is hemodynamically stable and afebrile. PHYSICAL EXAMINATION: GENERAL: When I examined him, he looked pale, cachectic, but no jaundice, cyanosis, or thyromegaly. No jugular venous distension. No limb edema. VITAL SIGNS: His heart rate was 66, blood pressure 109/63, temperature was 97.3, respiratory rate was 20, and oxygen saturation was 96%. The rest of clinical exam is stable, has not really changed. LABORATORY DATA: Most recent white cell count was 4700, hemoglobin 11, hematocrit 33, MCV 95, and platelet count of 107,000. His chemistry as of yesterday showed a serum sodium of 145, potassium 3.3, chloride 109, bicarbonate 30, anion gap of 6, BUN 19, creatinine 0.9, estimated GFR was 83 mL per minute, his glucose was 84, calcium was 7.8. His influenza A was positive. His nasal screen for MRSA was negative. ASSESSMENT AND PLAN: Healthcare-associated pneumonia with resultant sepsis for which he was on IV vancomycin and Zosyn. So far, all his cultures negative. He was afebrile and hemodynamically stable. I will discontinue the vancomycin and Zosyn and switch him to Augmentin. Influenza A for which he is on Tamiflu. ODALYS RENEE MD DR: ALBARO/kaden JOB#: [id number] / [id number]
--- NOTE | 2018-07-24 21:08 | PN ---
DATE: 07/23/2018 PSYCHIATRIC PROGRESS NOTE This late entry 07/23/2018 covers elements not covered in my initial note of 07/23/2017. SUBJECTIVE: Met with the patient in the evening, bed [address], [address] [place] [address], Formerly [facility], for a psychiatric consultation followup requested by Dr. Ewing after the patient was transferred from the [facility] to the medical-surgical floor consequent to his influenza diagnosis and pneumonia. The patient was being stabilized from a psychiatric standpoint consequent to his dementia with delusions, behavioral disturbance, developed the pneumonia and was transferred to [address] [place] [address]. I have been asked to follow him from a psychiatric standpoint. Per nursing report, the patient has been fairly cooperative, somewhat anxious, restless at times, but as his pneumonia is recovering, he showing improvement psychiatrically as well behaviorally. REVIEW OF SYSTEMS: Still positive for some upper respiratory tract infection symptoms. No CV, GI, system symptoms on review. MENTAL STATUS EXAM: Oriented to himself and situation. Speech has some latency, coherent. Abstraction fair, computation impaired, short term memory is impaired. No suicidal or homicidal ideation. LABORATORY DATA: Reviewed. IMPRESSION: Major neurocognitive disorder, Alzheimer, vascular with delusion depression; anxiety disorder, unspecified. Rest unchanged from initial note. PLAN: I have reviewed the patient's current psychotropics. We will keep everything unchanged for now. Psychiatrically, he seems to be somewhat stabilized and may transfer to an appropriate facility once he is medically stable rather than having to come back to the [facility]. CORA PRADHAN MD DR: SINDI/kaden JOB#: [id number] / [id number]
[2018-07-24] MEDS: AMOXICILLIN/K CLAV 500/125MG TABLET. PO SCH (21:53)
[2018-07-24] MEDS: traZODone 50 MG TABLET. PO SCH (21:54)
[2018-07-24] MEDS: MIRTAZAPINE 15 MG TABLET PO SCH (21:54)
[2018-07-25] MEDS: IPRATRPIUM/ALBUTEROL 0.5/2.5MG 3 ML NEBU. NEB SCH ×4 (05:57→20:00)
[2018-07-25] MEDS: HEPARIN for SUB-Q USE 5,000 UNIT/ML VIAL. SQ SCH ×3 (06:00→20:26)
[2018-07-25 06:26] VITALS: BP 114/71
[2018-07-25 06:35] LABS: CREATININE 0.7 mg/dL (0.7-1.3); GFR 111.5; POTASSIUM 3.8 mmol/L (3.5-5.1)
[2018-07-25] MEDS: FLUoxetine HCL 20 MG CAPSULE PO SCH (08:22)
[2018-07-25] MEDS: OSELTAMIVIR 75 MG CAPSULE PO SCH ×2 (08:22→20:25)
[2018-07-25] MEDS: MEMANTINE 5 MG TABLET. PO SCH ×2 (08:22→20:25)
[2018-07-25] MEDS: risperiDONE 0.5 MG TABLET. PO SCH ×2 (08:22→20:25)
[2018-07-25] MEDS: LACTOBACILLUS RHAMNOSUS GG 1 CAPSULE. PO SCH ×2 (08:22→20:25)
[2018-07-25] MEDS: RIVASTIGMINE 13.3MG PATCH. TD SCH (08:23)
[2018-07-25] MEDS: AMOXICILLIN/K CLAV 500/125MG TABLET. PO SCH ×2 (08:23→20:25)
[2018-07-25 12:04] VITALS: BP_SYST 118; BP_SYST 92; BP_DIAS 53; BP_DIAS 74
[2018-07-25] MEDS ORDERED: HEPARIN PF 500 UNIT/5 ML DISP.SYRIN. IV ONE (15:30)
--- NOTE | 2018-07-25 18:44 | DS ---
DATE OF DISCHARGE: 07/25/2018 HOSPITAL COURSE: The patient is a 68-year-old male patient, who was transferred from [facility] on the basis of difficulty breathing, fever and was found to have a healthcare-associated pneumonia as well as influenza A. He was started on Zyvox and vancomycin as well as Tamiflu and he did actually very well as his a.m. blood culture remained negative. We switched him to Augmentin 875 mg twice a day with food as well as continue with Tamiflu and as he remained hemodynamically stable and afebrile, a decision was made to discharge him to assisted facility. PHYSICAL EXAMINATION: GENERAL: When I examined him this afternoon, he looked well and was clearly in no apparent respiratory distress. No pallor, jaundice, cyanosis, or thyromegaly. No jugular venous distension. No limb edema. VITAL SIGNS: His heart rate was 68, blood pressure was 192/53, temperature was 97.6, respiratory rate was 20, and oxygen saturation was 96%. HEAD, EYES, EARS, NOSE AND THROAT: Showed normocephalic, atraumatic. NECK: Supple. HEART: Showed normal first and second sounds. No gallop, rub or murmur. CHEST: Clear to auscultation. No crepitation or rhonchi. ABDOMEN: Distended, soft, nontender. No guarding or rigidity. No organomegaly. All hernial orifice intact. Bowel sounds normal. NEUROLOGIC: He is demented, but without any obvious lateralizing sign. All his cranial nerves are intact. He moves extremities without difficulty, ambulates without assistance or assistive devices. His intake over the last 24 hours was 1100, no output was recorded. LABORATORY DATA: His lab work showed a white cell count 4700, hemoglobin 11, hematocrit 33, MCV 95, and platelet count of 107,000. Serum sodium as of this morning was 142, potassium 3.8, chloride 107, bicarbonate 30, anion gap of 5, BUN 17, creatinine 0.7. Estimated GFR was 111 mL per minute. His glucose was 86 and calcium was 8. His D-dimer was 1.37. Urinalysis was unremarkable. Toxic screen was essentially unremarkable. His influenza A was positive, B was negative and mycoplasma serology was negative. DISCHARGE MEDICATIONS: He will be discharged to a assisted facility to continue on cyanocobalamin 1000 mg intramuscular once a week, vitamin D 50,000 international unit once a week, Augmentin 500/125 twice a day for 7 more days. Lactobacillus rhamnosus 1 capsule twice a day, Tamiflu 75 mg twice a day with a stop date on 07/27/2018 and rivastigmine 1 patch topically daily, fluoxetine 20 mg once a day, trazodone 50 mg at bedtime, risperidone 0.5 mg twice a day, mirtazapine 15 mg at bedtime, Namenda 50 mg twice a day, trazodone 50 mg at bedtime, milk of magnesia 30 mL p.o. daily p.r.n. for constipation, DuoNeb 3 mL 4 times a day, olanzapine 2.5 mg every 2 hours as needed. FINAL DISCHARGE DIAGNOSES: Healthcare-associated pneumonia resulting in sepsis for which he is treated with IV vancomycin and Zosyn. He is now on oral Augmentin. Influenza A for which he is on Tamiflu. He has other problems include rectal cancer, deep venous thrombosis, anemia and dementia. ODALYS RENEE MD DR: ALBARO/kaden JOB#: [id number] / [id number]
[2018-07-25 19:40] VITALS: BP 106/64
[2018-07-25] MEDS: traZODone 50 MG TABLET. PO SCH (20:25)
[2018-07-25] MEDS: MIRTAZAPINE 15 MG TABLET PO SCH (20:25)
--- NOTE | 2018-07-25 22:25 | PDOC ---
Exam Note: Gadiel Note: Please also refer to the separate dictated note~for this date of service dictated separately.~Patient seen individually. Discussed the patient with Nursing staff reviewed the chart.~Reviewed interim history and current functioning. Reviewed vital signs,~Labs/ Radiology~and current medications noted below. Continue current treatment with the changes noted in the dictated addendum note Assessment: Vital Signs: Vital Signs Date Time Temp Pulse Resp B/P (MAP) Pulse Ox O2 Delivery O2 Flow Rate FiO2 07/25/18 19:40 97.9 69 20 106/64 (78) 98 Room Air I&O Intake and Output 07/25/18 06:59 Intake Total 960 ml Balance 960 ml Intake Oral 960 ml # Voids 1 Labs: Laboratory Tests Test 07/25/18 06:02 Sodium Level 142 mmol/L (136-145) Potassium Level 3.8 mmol/L (3.5-5.1) Chloride Level 107 mmol/L (98-107) Carbon Dioxide Level 30 mmol/L (21-32) Anion Gap 5 (6-14) L Blood Urea Nitrogen 17 mg/dL (8-26) Creatinine 0.7 mg/dL (0.7-1.3) Estimated GFR (Cockcroft-Gault) 111.5 Glucose Level 86 mg/dL (70-99) Calcium Level 8.0 mg/dL (8.5-10.1) L Current Medications: Meds: Current Medications Albuterol/ Ipratropium (Duoneb) 3 ml RTQID NEB Last administered on 07/25/18at 10:52; Start 07/21/18 at 12:00 Acetaminophen (Tylenol) 650 mg PRN Q6HRS PRN PO PAIN / TEMP Last administered on 07/22/18at 20:30; Start 07/21/18 at 11:30 Vitamin D (Vitamin D3) 50,000 unit WEEKLY PO ; Start 07/27/18 at 09:00 Cyanocobalamin (Vitamin B-12) 1,000 mcg Q4WK IM ; Start 08/08/18 at 09:00 Al Hydroxide/Mg Hydroxide (Mylanta Plus Xs) 15 ml QID PRN PO DYSPEPSIA; Start 07/21/18 at 11:30 Multi-Ingredient Ointment (Analgesic Bozman) 1 tarik QIDPRN PRN TP MUSCLE PAIN; Start 07/21/18 at 11:30 Olanzapine (ZyPREXA ZYDIS) 2.5 mg PRN Q2HR PRN PO PSYCHOSIS; Start 07/21/18 at 11:30 Rivastigmine (Exelon 13.3mg) 1 patch DAILY TD Last administered on 07/25/18 08 :23; Start 07/22/18 at 09:00 Fluoxetine HCl (PROzac) 20 mg DAILYWBKFT PO Last administered on 07/25/18 08: 22; Start 07/22/18 at 08:00 Magnesium Hydroxide (Milk Of Magnesia) 2,400 mg PRN QHS PRN PO CONSTIPATION; Start 07/21/18 at 12:00 Memantine (Namenda) 5 mg BID PO Last administered on 07/25/18 20:25; Start 03/29 at 21:00 Mirtazapine (Remeron) 15 mg QHS PO Last administered on 07/25/18 20:25; Start 07/21/18 at 21:00 Risperidone (RisperDAL) 0.5 mg BID PO Last administered on 07/25/18 20:25; Start 07/21/18 at 21:00 Trazodone HCl (Desyrel) 50 mg QHS PO Last administered on 07/25/18 20:25; Start 07/21/18 at 21:00 Trazodone HCl (Desyrel) 50 mg PRN QHS PRN PO INSOMNIA; Start 07/21/18 at 12:15 Sodium Chloride 1,000 ml @ 75 mls/hr [id number] IV Last administered on at 00:50; Start 07/21/18 at 11:30; Stop 07/22/18 at 12:40; Status DC Albuterol/ Ipratropium (Duoneb) 3 ml TID NEB ; Start 07/21/18 at 21:00; Status UNV Azithromycin (Zithromax) 500 mg DAILY PO Last administered on 07/22/18 09:03; Start 07/21/18 at 18:00; Stop 07/22/18 at 12:37; Status DC Ceftriaxone Sodium 1 gm/ Sodium Chloride 50 ml @ 100 mls/hr Q24H IV Last administered on 07/21/18at 21:30; Start 07/21/18 at 21:30; Stop 07/22/18 at 12:37 ; Status DC Heparin Sodium (Porcine) (Heparin Sodium) 5,000 unit Q8HRS SQ Last administered on 07/24/18at 14:49; Start 07/21/18 at 22:00 Iohexol (Omnipaque 350 Mg/ml) 100 ml 1X ONCE IV Last administered on at 08:06; Start 07/22/18 at 08:00; Stop 07/22/18 at 08:01; Status DC Lactobacillus Rhamnosus (Culturelle) 1 cap BID PO Last administered on 20:25; Start 07/22/18 at 21:00 Piperacillin Sod/ Tazobactam Sod 3.375 gm/Sodium Chloride 50 ml @ 100 mls/hr Q8H IV Last administered on 07/24/18at 14:10; Start 07/22/18 at 12:45; Stop at 15:07; Status DC Vancomycin HCl (Vanco Per Pharmacy) 1 each PRN DAILY PRN MC SEE COMMENTS Last administered on 07/22/18at 13:07; Start 07/22/18 at 12:45; Stop 07/24/18 at 15:20 ; Status DC Oseltamivir Phosphate (Tamiflu) 75 mg BID PO ; Start 07/22/18 at 21:00; Stop 04/29 at 21:00; Status DC Oseltamivir Phosphate (Tamiflu) 75 mg BID PO Last administered on 07/25/18at 20: 25; Start 07/22/18 at 12:45; Stop 07/27/18 at 12:44 Vancomycin HCl 1.25 gm/Sodium Chloride 250 ml @ 166.667 mls/hr 1X ONCE IV Last administered on 07/22/18 13:58; Start 07/22/18 at 14:00; Stop 07/22/18 at 15:29; Status DC Vancomycin HCl 1 gm/Sodium Chloride 250 ml @ 250 mls/hr Q24H IV Last administered on 07/24/18at 14:48; Start 07/23/18 at 14:00; Stop 07/24/18 at 15:07 ; Status DC Vancomycin HCl (Vancomycin Trough Level) 1 each 1X ONCE MC Last administered on 07/24/18at 13:30; Start 07/24/18 at 13:30; Stop 07/24/18 at 13:31; Status DC Potassium Chloride (Klor-Con) 40 meq 1X ONCE PO Last administered on at 08:28; Start 07/23/18 at 07:15; Stop 07/23/18 at 07:18; Status DC Amoxicillin/ Clavulanate Potassium (Augmentin 500/ 125mg) 1 tab BID PO Last administered on 07/25/18at 20:25; Start 07/24/18 at 21:00 Heparin Sodium (Porcine) (Hep Lock Adult) 500 unit 1X ONCE IV Last administered on 07/25/18at 15:30; Start 07/25/18 at 15:30; Stop 07/25/18 at 15:31 ; Status DC Active Scripts Active Reported Trazodone Hcl 50 Mg Tablet 1 Tab PO QHS PRN Trazodone Hcl 50 Mg Tablet 1 Tab PO QHS Risperdal (Risperidone) 0.5 Mg Tablet 0.5 Mg PO BID EXELON 13.3mg/24hr (Rivastigmine) 1 Each Patch.td24 1 Patch TD DAILY Zyprexa Zydis (Olanzapine) 5 Mg Tab.rapdis 2.5 Mg PO Q2HR PRN Remeron (Mirtazapine) 15 Mg Tablet 1 Tab PO QHS Namenda (Memantine Hcl) 10 Mg Tablet 5 Mg PO BID Prozac (Fluoxetine Hcl) 20 Mg Capsule 1 Cap PO DAILYWBKFT Analgesic Bozman (Methyl Salicylate/Menthol) 28 Gm Oint...g. 1 Applic TP QIDPRN PRN Milk Of Magnesia (Magnesium Hydroxide) 2,400 Mg/10 Ml Oral.susp 2,400 Mg PO HS PRN Adv Antacid-Antigas Liquid (Mag Hydrox/Al Hydrox/Simeth) 355 Ml Oral.susp 15 Ml PO QID PRN Cyanocobalamin Injection (Cyanocobalamin (Vitamin B-12)) 1,000 Mcg/1 Ml Vial 1, 000 Mcg IJ Q4WK D3-50 (Cholecalciferol (Vitamin D3)) 50,000 Unit Capsule 50,000 Unit PO WEEKLY Tylenol (Acetaminophen) 325 Mg Tablet 650 Mg PO PRN Q6HRS PRN I have reviewed the current psychotropics carefully including drug interactions. Risk benefit ratio favors no change other than as noted in my dictated progress note. Diagnosis: Problems: (1) HCAP (healthcare-associated pneumonia) (2) Influenza A (3) Unspecified psychosis (4) Anxiety disorder (5) Dementia, vascular, with delusions (6) Dementia, vascular, with depression (7) Dementia in Alzheimer's disease with delusions (8) Dementia in Alzheimer's disease with depression (9) Impulse control disorder (10) Psychosis, atypical CORA PRADHAN MD Jul 25, 2018 22:25
[2018-07-26] MEDS: HEPARIN for SUB-Q USE 5,000 UNIT/ML VIAL. SQ SCH (05:30)
[2018-07-26 06:02] VITALS: BP 114/72
--- NOTE | 2018-07-26 10:57 | PN ---
DATE: 07/24/2018 PSYCHIATRIC PROGRESS NOTE This late entry 07/24/2018 covers elements not covered in my initial note 07/24/2018. SUBJECTIVE: I met with the patient on the evening of 07/24/2018. Per nursing report, the patient is gradually recovering from his influenza A/pneumonia. Psychiatrically, he has been cooperative, has had no bizarre episodes of behaviors like he had [facility] the [facility]. Communication is difficult since he prefers to communicate in Chinese. REVIEW OF SYSTEMS: Positive for some cough. No CV, GI, , eye system symptoms on review. Reliability poor. MENTAL STATUS EXAM: Oriented to himself and situation. Speech has some latency, coherent. Abstraction fair, computation impaired, language function intact, attention span short. Mood and affect somewhat withdrawn at times, but generally appropriate. LABORATORY DATA: Reviewed. IMPRESSION: Unchanged from initial note. PLAN: No change from initial note. Continue current psychotropics per initial note. Transition to a lower level of care once he is medically stable rather than return to the [facility]. MAN Delilah PRADHAN MD DR: SINDI/kaden JOB#: [id number] / [id number]
--- NOTE | 2018-07-26 13:46 | PN ---
DATE: 07/25/2018 PSYCHIATRIC PROGRESS NOTE This late entry 07/25/2018 covers elements not covered in my initial note. SUBJECTIVE: I met with the patient in the evening. Overall, per nursing report, the patient continues to do reasonably well from a psychiatric standpoint. He has not been agitated or having bizarre behaviors like he did on the [facility]. He is recovering further from the pneumonia and has been accepted at a facility for possible transition on 07/26/2018. REVIEW OF SYSTEMS: No CV, , pulmonary, eye system symptoms on review. MENTAL STATUS EXAM: Oriented to himself and situation. Speech has some latency, coherent. He recognized me as "doctor." Abstraction fair, computation impaired, language function intact. Communication difficult due to primary attempts for him to communicate in Nigerian. No active suicidal or homicidal ideation. LABORATORY DATA: Reviewed. IMPRESSION: Unchanged from initial note. PLAN: No change from initial note and transition to [facility] on 07/26/2018. CORA PRADHAN MD DR: SINDI/kaden JOB#: [id number] / [id number]
[2018-07-27] MEDS ORDERED: CHOLECALCIFEROL (VITAMIN D3) 50,000 UNIT CAPSULE PO SCH (09:00)
[2018-08-08] MEDS ORDERED: CYANOCOBALAMIN (VITAMIN B-12) 1,000 MCG/ML VIAL IM SCH (09:00)
== END 2018-07-26 08:15 | DRG 871 ==
LOC: 1 SOUTH 11:15
PROVIDERS: ADMIT Internal Medicine; ATTEND Internal Medicine
DX: A41.9 Sepsis, unspecified organism (principal); J10.00 Influenza due to other identified influenza virus with unspecified type of pneumonia; F02.81 Dementia in other diseases classified elsewhere, unspecified severity, with behavioral disturbance; F01.51 Vascular dementia, unspecified severity, with behavioral disturbance; D64.9 Anemia, unspecified; Y95 Nosocomial condition; G30.9 Alzheimer's disease, unspecified; F63.9 Impulse disorder, unspecified; F41.9 Anxiety disorder, unspecified; F32.9 Major depressive disorder, single episode, unspecified; Z79.899 Other long term (current) drug therapy; Z87.891 Personal history of nicotine dependence; Z85.048 Personal history of other malignant neoplasm of rectum, rectosigmoid junction, and anus; Z86.718 Personal history of other venous thrombosis and embolism
CPT/HCPCS: 36415; 71045; 71275; 80048; 80053; 80202; 81001; 83605; 84145; 85025; 85379; 86738; 87641; 87804; 94640; J0456; J0696; J1644; J2543; J3370; J7050; J7620; Q9967; J7030